=== PATIENT | female | born 1960 | race Caucasian/White ===

== ENCOUNTER 2021-05-13 15:28 | Outpatient (REF) | payer OTHER, SELFPAY ==
[2021-05-13 16:24] LABS: Blood Urea Nitrogen 17 mg/dL (9-16); Estimated Glomerular Filt Rate > 60
== END 2021-05-13 15:29 | disposition home or self-care (01) ==
LOC: HO.LAB 15:28
PROVIDERS: Visit Provider Psychiatry & Neurology Neurology
DX: G35 Multiple sclerosis (principal)
CPT/HCPCS: 36415; 82565; 84520

== ENCOUNTER 2021-05-29 08:01 | Outpatient (REF) | payer OTHER, SELFPAY ==
--- NOTE | ~2021-05-29 | MR_ITS ---
MR CERVICAL SPINE WITHOUT AND WITH CONTRAST CLINICAL INFORMATION: Multiple sclerosis. COMPARISON: Cervical spine MRI 06/25/2017. Brain MRI 05/29/2021. TECHNIQUE: MRI of the cervical spine was obtained using routine sequences with and without contrast. Intravenous contrast: Gadavist 8 mL. FINDINGS: Lesions at the C5 and T2 levels of the spinal cord remain stable. No new cervical cord lesions accounting for artifact. There is no bone marrow edema. There are no acute fractures. Craniocervical junction is unremarkable. Vertebral body heights are maintained. Progressive moderate disc volume loss at C5-C6 and mild disc volume loss at C6-C7. There is no pathologic intrathecal enhancement. At C4-C5, uncovertebral joint spurring and facet arthropathy result in similar moderate right-sided foraminal stenosis and a shallow central disc protrusion results in stable mild narrowing of the central canal. At C5-C6, disc osteophyte mildly narrows the central canal and advanced uncovertebral joint spurring and facet arthropathy result in stable severe right-sided foraminal stenosis. At C6-C7: A small annular disc bulge mildly indents the ventral thecal sac and uncovertebral joint spurring results in mild bilateral foraminal encroachment. MR/MR cervical spine wo/w con IMPRESSION: There are a few stable cord lesions within the cervical spine and thoracic spine. No enhancing lesions. Multilevel cervical spondylosis with spondylitic changes resulting in persistent severe right-sided foraminal stenosis at C5-C6.
--- NOTE | ~2021-05-29 | MR_ITS ---
EXAMINATION: MR BRAIN WITHOUT AND WITH CONTRAST CLINICAL INFORMATION: Multiple sclerosis. COMPARISON: Brain MRI 06/25/2017. TECHNIQUE: Multiplanar MR imaging of the brain was performed without and with contrast. A total of 8 mL Gadavist was utilized for this examination. FINDINGS: There are numerous foci of T2 FLAIR signal hyperintensity primarily involving the supratentorial white matter. Overall there has been no substantial change when compared to most recent prior brain MRI from 06/25/2017. Specifically there is no clear evidence of new or worsening white matter disease. Postcontrast images reveal no abnormal intraparenchymal enhancement. No intracranial mass effect or midline shift. No abnormal extra-axial collection. Lateral and third ventricles are normal. No hydrocephalus. Midline structures including the cervicomedullary junction are normal. No acute bone marrow signal changes. There is no acute territorial infarct. No pathological magnetic susceptibility artifact. Intracranial vascular flow voids are maintained. There is no mastoid or middle ear effusion. Mild mucosal thickening within ethmoid air cells. MR/MR head/brain wo/w con IMPRESSION: Stable examination with no clear evidence of new or worsening white matter disease when compared to MR imaging from 06/25/2017. No abnormal enhancement to suggest active inflammation.
== END 2021-05-29 08:02 | disposition home or self-care (01) ==
LOC: HO.MRI 08:01
PROVIDERS: Visit Provider Psychiatry & Neurology Neurology
DX: G35 Multiple sclerosis (principal)
CPT/HCPCS: 70553; 72156; A9585

== ENCOUNTER 2021-06-17 13:09 | Outpatient (REF) | payer OTHER, SELFPAY ==
--- NOTE | ~2021-06-17 | MM_ITS ---
EXAMINATION: MM SCREENING DIGITAL BREAST TOMOSYNTHESIS, BILATERAL CLINICAL INFORMATION: Screening. Asymptomatic. The lifetime risk of breast cancer based on the Tyrer-Cuzick Model is 15%. COMPARISON: Mammography: 08/06/2017, 06/11/2016, 06/08/2015 TECHNIQUE: Digital breast tomosynthesis is performed in both the craniocaudal and mediolateral oblique views along with computer-aided detection (CAD). Synthesized 2D images are generated from the tomosynthesis. FINDINGS: There are scattered areas of fibroglandular density (ACR BI-RADS breast composition Category b). There is mild bilateral chronic nipple retraction. Parenchymal pattern is similar to prior studies. There is stable small nodularity anterior central left breast and retroareolar right breast. There is no developing density or architectural abnormality or abnormal calcifications the axilla are unremarkable. There is no skin thickening. No significant changes. MM/MM tomosynthesis screening BI IMPRESSION: No mammographic evidence of malignancy. ASSESSMENT: BI-RADS 2: Benign RECOMMENDATION: Routine annual mammography screening. This patient's information was entered into a reminder system with a target due date for their next mammogram.
[2021-06-17 13:52] LABS: Hematocrit 43.3 % (37-47); Hemoglobin 13.8 g/dl (12.0-16.0); Mean Corpuscular HGB Conc 31.9 g/dl (31.0-35.0); Mean Corpuscular Hemoglobin 27.9 pg (27.0-33.0); Mean Corpuscular Volume 87.5 fL (80-98); Mean Platelet Volume 9.8 fL (9.4-12.3); Platelet Count 253 X10*3/uL (160-400); Red Blood Count 4.95 X10*6/uL (4.20-5.50); Red Cell Distribution Width 15.2 % (11.0-16.0); White Blood Count 8.8 X10*3/uL (4.8-10.8)
[2021-06-17 14:04] LABS: Alanine Aminotransferase 23 U/L (0-31); Albumin Level 4.6 g/dL (3.5-5.0); Alkaline Phosphatase 91 U/L (39-117); Anion Gap 16 (12-20); Aspartate Amino Transferase 22 U/L (5-31); Bilirubin Direct 0.2 mg/dL (0.0-0.5); Bilirubin Total 0.6 mg/dL (0.0-1.0); Blood Urea Nitrogen 14 mg/dL (9-16); Calcium 9.8 mg/dL (8.4-10.2); Carbon Dioxide 23 mmol/L (22-29); Chloride 106 mmol/L (96-108); Cholesterol 230 mg/dL; Estimated Glomerular Filt Rate > 60; Glucose Random 130 mg/dL (60-115); HDL Cholesterol 41 mg/dL; LDL Cholesterol Calculated 143 mg/dl; Potassium 3.8 mmol/L (3.3-5.1); Sodium 141 mmol/L (135-145); Total Protein 6.9 g/dL (6.5-8.0); Triglycerides 233 mg/dL
[2021-06-17 14:27] LABS: Thyroid Stimulating Hormone 1.26 uIU/mL (0.32-4.0)
[2021-06-17 17:11] LABS: Glucose Urine UA NEG (NEG); Leukocyte Esterase Urine NEG (NEG); Nitrite Urine NEG (NEG); Specific Gravity - Urine >= 1.030 (1.005-1.025); Urine Blood NEG (NEG); Urine Ketones 15 MG/DL (NEG); Urine Protein TRACE MG/DL (NEG-TRACE)
[2021-06-17 17:28] LABS: Appearance Urine CLEAR; Color Urine YELLOW
== END 2021-06-17 13:10 | disposition home or self-care (01) ==
LOC: HO.MAMMO 13:09
PROVIDERS: PCP Internal Medicine; Visit Provider Internal Medicine
DX: Z12.31 Encounter for screening mammogram for malignant neoplasm of breast (principal); E78.00 Pure hypercholesterolemia, unspecified
CPT/HCPCS: 36415; 77063; 77067; 80048; 80061; 80076; 81003; 84443; 85027

== ENCOUNTER → 2021-07-12 08:45 | Outpatient (BNVA) | payer OTHER, SELFPAY | PROVIDERS: PCP Internal Medicine; Referring Provider Internal Medicine; Visit Provider Surgery | DX: Z80.3 Family history of malignant neoplasm of breast (principal) | CPT/HCPCS: 99212 ==

== ENCOUNTER 2021-09-09 11:44 | Outpatient (REF) | payer OTHER, SELFPAY ==
[2021-09-09 12:40] LABS: Estimated Average Glucose 108 mg/dL; Hemoglobin A1c % 5.4 %
== END 2021-09-09 11:45 | disposition home or self-care (01) ==
LOC: HO.LAB 11:44
PROVIDERS: PCP Internal Medicine; Visit Provider Internal Medicine
DX: R73.9 Hyperglycemia, unspecified (principal)
CPT/HCPCS: 36415; 83036

== ENCOUNTER 2021-09-10 11:22 | Outpatient (REF) | payer OTHER, SELFPAY ==
--- NOTE | ~2021-09-10 | XR_ITS ---
EXAMINATION: XR ANKLE, RIGHT CLINICAL INFORMATION: Right ankle pain COMPARISON: None TECHNIQUE: AP, lateral, and mortise views of the right ankle. FINDINGS: The bones and soft tissues are normal. No fracture. Alignment is anatomic. Joint spaces are maintained. No joint effusion. XR/XR ankle RT min 3V IMPRESSION: Normal right ankle. Note that the base of the 5th metatarsal is not included on the lateral view, obscured by the bones of the midfoot, and therefore a subtle or nondisplaced fracture could be obscured. Correlate clinically.
== END 2021-09-10 11:23 | disposition home or self-care (01) ==
LOC: HO.LAB 11:22
PROVIDERS: PCP Internal Medicine; Visit Provider Nurse Practitioner Family
DX: M25.571 Pain in right ankle and joints of right foot (principal)
CPT/HCPCS: 73610

== ENCOUNTER 2022-06-26 07:19 | Outpatient (REF) | payer OTHER, SELFPAY ==
--- NOTE | ~2022-06-26 | MM_ITS ---
EXAMINATION: MM SCREENING DIGITAL BREAST TOMOSYNTHESIS, BILATERAL CLINICAL INFORMATION: Screening. Asymptomatic. Family history premenopausal breast cancer, sister. The lifetime risk of breast cancer based on the Tyrer-Cuzick Model is 15%. COMPARISON: Mammography: 06/17/2021, 08/06/2017, 06/11/2016 TECHNIQUE: Digital breast tomosynthesis is performed in both the craniocaudal and mediolateral oblique views along with computer-aided detection (CAD). Synthesized 2D images are generated from the tomosynthesis. Additional right MLO view is provided. FINDINGS: There are scattered areas of fibroglandular density (ACR BI-RADS breast composition Category b). There are no significant masses, abnormal calcifications, or other abnormalities. Parenchymal pattern is similar to prior studies. There is mild bilateral chronic nipple retraction as previously noted. No significant changes. MM/MM tomosynthesis screening BI IMPRESSION: No significant changes from prior exams. ASSESSMENT: BI-RADS 2: Benign RECOMMENDATION: Routine annual mammography screening. This patient's information was entered into a reminder system with a target due date for their next mammogram.
== END 2022-06-26 07:20 | disposition home or self-care (01) ==
LOC: HO.MAMMO 07:19
PROVIDERS: PCP Internal Medicine; Visit Provider Internal Medicine
DX: Z12.31 Encounter for screening mammogram for malignant neoplasm of breast (principal)
CPT/HCPCS: 77063; 77067

== ENCOUNTER 2022-09-23 13:59 | Outpatient (REF) | payer OTHER, SELFPAY ==
--- NOTE | ~2022-09-23 | MR_ITS ---
EXAMINATION: MRI BRAIN WITHOUT AND WITH CONTRAST MRI CERVICAL SPINE WITHOUT AND WITH CONTRAST MRI THORACIC SPINE WITHOUT AND WITH CONTRAST CLINICAL INFORMATION: Multiple sclerosis. COMPARISON: MRI brain and cervical spine 05/29/2021. MRI brain, cervical, and thoracic spine 06/25/2017. TECHNIQUE: Multiplanar MR imaging of the brain, cervical spine, and thoracic spine was performed without and with contrast. A total of 8 mL Gadavist was utilized for this examination. FINDINGS: Brain: There are multiple foci of T2 FLAIR signal hyperintensity primarily involving the supratentorial white matter that have remained stable when compared to the most recent prior examination from 05/29/2021. No evidence of new or worsening white matter disease. There is no abnormal intraparenchymal enhancement demonstrated on postcontrast images. No intracranial mass effect or midline shift. No abnormal extra-axial collection. Lateral and third ventricles are normal. No hydrocephalus. Midline structures including the cervicomedullary junction are normal. No acute bone marrow signal changes. There is no acute territorial infarct. No pathological magnetic susceptibility artifact. Intracranial vascular flow voids are grossly maintained. Cervical spine: Again there is a short eccentric segment of increased intramedullary T2 signal intensity involving the right lateral cord at the level of C5. No new intramedullary signal abnormality and there is no abnormal intramedullary enhancement demonstrated on postcontrast images. Alignment is normal. Vertebral heights are preserved. No acute bone marrow signal changes. Slight loss of intervertebral disc height and T2 signal intensity at multiple levels related to disc degeneration. Uncovertebral joint spurring and conjunction with facet degenerative change at C5-C6 causes moderate to severe right neuroforaminal encroachment. There is mild neuroforaminal narrowing at multiple additional levels, not substantial change when compared to prior imaging. Visualized soft tissues of the neck are normal. Vascular flow voids are maintained. Thoracic spine: There are a few short segment eccentric intramedullary lesions involving the thoracic spinal cord including a stable left dorsal cord lesion at T2, a left dorsal cord lesion at T5 that was not visible on prior imaging, a short intramedullary lesion involving the right lateral cord at the level of T8 that was faintly visible, and a possible new lesion involving the right dorsal cord at T10. There is no pathological intramedullary enhancement demonstrated on postcontrast images to suggest active demyelination at the time of imaging. Alignment is normal. Vertebral heights are preserved. There is a well marginated intraosseous hemangioma involving the T7 vertebral body. There is slight loss of intervertebral disc height and T2 signal intensity at multiple levels related to disc degeneration. There is no canal or neuroforaminal compromise. No cord compression. Limited visualization of intrathoracic anatomy reveals no abnormal finding. Specifically no paraspinal soft tissue mass or collection. MR/MR thoracic spine wo/w con IMPRESSION: Brain: Stable chronic supratentorial white matter disease. No new or worsening white matter disease to suggest disease progression. No abnormal intraparenchymal enhancement to suggest active demyelination. Cervical spine: Stable chronic intramedullary lesion involving the right lateral cord at the level of C5. No new intramedullary lesion and no abnormal intramedullary enhancement to suggest active demyelination. There is multilevel degenerative spondylosis of the cervical spine. Asymmetric uncovertebral joint spurring causes moderate to severe right neuroforaminal encroachment at C5-C6. Mild neuroforaminal narrowing is visualized at multiple additional levels. Thoracic Spine: There are a few short segment eccentric intramedullary lesions at the levels of T2, T5, T8, and T10. Lesions at T2 and T8 are stable. There is however no pathological intramedullary enhancement on postcontrast images to suggest active demyelination. Otherwise unremarkable examination in that there is no canal or neuroforaminal compromise. No cord compression.
== END 2022-09-23 14:00 | disposition home or self-care (01) ==
LOC: HO.MRI 13:59
PROVIDERS: Visit Provider Psychiatry & Neurology Neurology
DX: G35 Multiple sclerosis (principal)
CPT/HCPCS: 70553; 72156; 72157; A9585

== ENCOUNTER 2023-07-10 08:37 | Outpatient (REF) | payer OTHER, SELFPAY ==
--- NOTE | ~2023-07-10 | XR_ITS ---
EXAMINATION: XR FOOT, RIGHT CLINICAL INFORMATION: Right foot sprain COMPARISON: None available. TECHNIQUE: AP, lateral, and oblique views of the right foot. FINDINGS: No acute fracture or malalignment. Small heel spur. Subtle flattening and sclerosis of the 3rd metatarsal head may represent an old injury or Freiberg's infraction. No significant joint space narrowing. XR/XR foot RT min 3V IMPRESSION: No acute fracture or malalignment. Small heel spur. Subtle flattening and sclerosis of the 3rd metatarsal head may represent an old injury or Freiberg's infraction.
== END 2023-07-10 08:38 | disposition home or self-care (01) ==
LOC: HO.LAB 08:37
PROVIDERS: Visit Provider Nurse Practitioner Primary Care
DX: S93.691A Other sprain of right foot, initial encounter (principal); B02.9 Zoster without complications; R12 Heartburn; G35 Multiple sclerosis
CPT/HCPCS: 73630

== ENCOUNTER 2023-09-16 21:51 | Emergency (ER) | payer OTHER, SELFPAY ==
--- NOTE | ~2023-09-16 | XR_ITS ---
EXAMINATION: XR FACIAL BONES CLINICAL INFORMATION: Pain after fall COMPARISON: None available. TECHNIQUE: 4 views of the facial bones were obtained. FINDINGS: No displaced fracture identified. Frontal sinuses are suspected to be nonpneumatized. Remaining paranasal sinuses and mastoid air cells appear aerated. XR/XR facial bones <3V IMPRESSION: No displaced fracture identified.
--- NOTE | ~2023-09-16 | XR_ITS ---
EXAMINATION: XR WRIST, RIGHT XR HAND, RIGHT CLINICAL INFORMATION: Fall with pain COMPARISON: None available. TECHNIQUE: PA, lateral, and oblique views of the right wrist and right hand FINDINGS: Articular alignment throughout the wrist and hand appears anatomic. There are small curvilinear calcifications adjacent to the base of the third proximal phalanx, along the radial aspect, which are more suggestive of a chronic finding. No additional focal osseous abnormality is seen. No significant focal soft tissue abnormality identified. XR/XR hand wrist RT IMPRESSION: Small curvilinear calcifications adjacent to the base of the third proximal phalanx, more suggestive of a chronic finding. Otherwise no acute findings identified.
--- NOTE | ~2023-09-16 | XR_ITS ---
EXAMINATION: XR HUMERUS, RIGHT CLINICAL INFORMATION: Pain after fall COMPARISON: None available. TECHNIQUE: AP and lateral views of the right humerus. FINDINGS: Alignment at the shoulder and elbow appears anatomic on these views. No acute fracture is seen. Mild soft tissue swelling suspected near the distal humerus. XR/XR humerus RT IMPRESSION: No fracture identified. Mild soft tissue swelling near the distal humerus.
[2023-09-16 22:15] VITALS: BP 201/78; PULSE 93; RESP 18; TEMP 36.3; O2SAT 98
[2023-09-17 02:00] VITALS: BP 181/71; PULSE 95; RESP 18; TEMP 36.6; O2SAT 96
--- NOTE | 2023-09-17 02:11 | ED_ITS ---
HPI - Fall General Chief Complaint: Fall Stated Complaint: Fall Time Seen by Provider: 09/17/23 02:07 Source: patient Mode of arrival: ambulatory Limitations: no limitations History of Present Illness HPI Narrative: Patient comes to the emergency room complaining of a fall after tripping over her dog. Patient states she is not on blood thinners. Patient states she bumped her forehead but did not lose consciousness, patient has a small abrasion on the forehead. Patient states that she has no headache, no neck pain, but muscle the pain is on the right wrist and upper arm. Related Data Home Medications Medication Instructions Recorded Confirmed omeprazole 20 mg capsule,delayed 20 mg PO DAILY 08/15/20 08/05/22 release Previous Rx's Medication Instructions Recorded lisinopril 5 mg tablet 5 mg PO DAILY #90 tabs 12/26/21 atorvastatin 80 mg tablet (Lipitor) 80 mg PO BEDTIME #90 tabs 03/13/22 Allergies Allergy/AdvReac Type Severity Reaction Status Date / Time corticotropin Allergy Severe SWELLING Verified 09/16/23 22:14 [From [facility] levofloxacin [From LEVAQUIN] Allergy Severe ANGIOEDEMA Verified 09/16/23 22:14 teriflunomide [From AUBAGIO] Allergy Severe SOB/HTN Verified 09/16/23 22:14 albumin human Allergy Intermediate ARM Verified 09/16/23 22:14 [From REBIF (WITH ALBUMIN)] INFECTION interferon beta-1a Allergy Intermediate ARM Verified 09/16/23 22:14 [From REBIF (WITH ALBUMIN)] INFECTION sulfamethoxazole Allergy Mild RASH Verified 09/16/23 22:14 [From BACTRIM] trimethoprim [From BACTRIM] Allergy Mild RASH Verified 09/16/23 22:14 fingolimod [From GILENYA] Allergy Unknown UNKNOWN Verified 09/16/23 22:14 REACTION glatiramer (copolymer 1) Allergy Unknown damage skin Verified 09/16/23 22:14 [Copaxone] 1st Choice Lancets Super Thin Allergy Unknown Unknown Uncoded 08/05/22 09:26 adhesives Allergy Unknown rash Uncoded 08/05/22 09:26 Review of Systems Review of Systems: Constitutional : No Weight loss, No Fever, No Chills, No Night Sweats, No Fatigue, No Malaise ENT/Mouth : No Hearing loss, No Ear Pain, No Nasal Congestion, No Sinus Pain, No Hoarseness, No sore throat, No Rhinorrhea, No Swallowing Difficulty Eyes: No Eye Pain, No Swelling, No Redness, No Foreign Body, No Discharge, No Vision Changes Cardiovascular : No Chest Pain, No SOB, No Dyspnea on Exertion, No Orthopnea, No Edema, No Palpitations Respiratory : No Cough, No Sputum, No Wheezing, No Smoke Exposure, No Dyspnea Gastrointestinal : No Nausea, No Vomiting, No Diarrhea, No Constipation, No abdominal Pain, No Hematochezia, No Melena Genitourinary : no irregular bleeding, No Dysuria, No Urinary Frequency, No Hematuria, No Urinary Incontinence, No Urgency, No Flank Pain, No Urinary Flow Changes, No Hesitancy Musculoskeletal : Complaining of right wrist pain, No Myalgias, No Joint Swelling Skin : Complaining of abrasion to the forehead, nose and right upper arm Neuro : No Weakness, No Numbness, No Paresthesias, No Loss of Consciousness, No Dizziness, No Headache Psych : No Anxiety/Panic, No Depression, No SI/HI/AH/VH, No Social Issues, Heme/Lymph: No Bruising, No Bleeding,No Lymphadenopathy Endocrine : No Polyuria, No Polydipsia, No Temperature Intolerance PMFSH Past Medical History Medical History Essential hypertension Hordeolum externum left lower eyelid Tobacco use disorder Multiple sclerosis Hypercholesterolemia Conjunctivitis Blepharitis of eyelid of right eye Surgical History History of breast biopsy History of ear surgery History of tonsillectomy Family History Family History Mother No problems noted. Father No problems noted. Sister Breast cancer, Onset Age: 30 Maternal Aunt Breast cancer Social History Social History Housing: House Alcohol intake: never Patient Tobacco Use Status: Current everyday Tobacco user Tobacco use type: Cigarette Cigarette Packs Per Day: 1 Cigarettes Per Day: 20 e-Cigarette/Vaping Use: Never Used Second Hand Smoke Exposure: Yes Advance Directives: No Advance Directives Information Provided: No service: No Current occupational status: disabled Cognitive needs: Yes (cane) Hearing needs: No Vision needs: Yes (Glasses) Physical Exam Vital Signs: Vital Signs: Last Vital Signs Temp 97.8 F 09/17/23 02:00 Pulse 95 09/17/23 02:00 Resp 18 09/17/23 02:00 BP 181/71 H 09/17/23 02:00 Pulse Ox 96 09/17/23 02:00 O2 Del Method Room Air 09/17/23 02:00 BMI result Body Mass Index 30.0 Const: Other: Appearance: Alert. Oriented X3. No acute distress. Well appearing Eyes: Pupils equal, round and reactive to light. ENT: Pharynx normal. Neck: Normal inspection. Neck supple. No lymph nodes noted. No crepitus CVS: Normal heart rate and rhythm. Pulses normal. Normal S1 and S2 Respiratory: No respiratory distress. Breath sounds normal. No Wheezing. No rales Abdomen: Soft and nontender. No rigidity. No distention. Skin: Skin warm and dry. Normal skin color. Normal skin turgor. Small abrasion to the forehead and a very small skin tear to the right arm above the elbow Extremities: No lower extremity edema. No Lacerations. No Rash Neuro: Oriented X 3. No motor deficit. No sensory deficit. Moving all extremities. No slurred speech. CN 2 through 12 grossly intact Psych: calm, cooperative, normal affect Medical Decision Making Medical Decision Making MDM Narrative: -my interpretation of x-rays of the hand/wrist/tumors, no fracture, normal a lignment -I discussed the x-ray findings with the patient, no fracture. -patient states that she feels well, patient states that she does not want us to clean her abrasion, patient feels well and would like to be discharged home Differential Diagnosis Differential Diagnoses: The differential diagnosis associated with the presentation includes (Right arm contusion, abrasion, fracture of their radius/ulna/humerus) Independent Interpretation I performed an independent interpretation of an: Plain X-Ray Radiology Impression Discussion of test interpretation with radiology: I have reviewed the radiologist's reading. Radiologist Impression: Hand/wrist x-ray: Small curvilinear calcifications adjacent to the base of the third proximal phalanx, more suggestive of a chronic finding. Otherwise no acute findings identified. Humerus fracture: No fracture identified. Mild soft tissue swelling near the distal humerus. Face x-ray: FINDINGS: No displaced fracture identified. Frontal sinuses are suspected to be nonpneumatized. Remaining paranasal sinuses and mastoid air cells appear aerated. Discharge Plan Discharge Clinical Impression: Multiple contusions Patient Disposition: Home, Self-Care Instructions: Contusion in Adults (ED) Additional Instructions: Please follow-up with your primary care physician tomorrow. If you have any worsening or new symptoms, please return to the emergency room or call 911 Prescriptions: No Action atorvastatin [Lipitor] 80 mg tablet 80 mg PO BEDTIME Qty: 90 1RF omeprazole 20 mg capsule,delayed release(DR/EC) 20 mg PO DAILY lisinopril 5 mg tablet 5 mg PO DAILY Qty: 90 1RF
== END 2023-09-17 02:30 | disposition home or self-care (01) ==
PROVIDERS: Emergency Provider Emergency Medicine; PCP Internal Medicine
DX: S00.83XA Contusion of other part of head, initial encounter (principal); S60.211A Contusion of right wrist, initial encounter; R51.9 Headache, unspecified; M25.531 Pain in right wrist; F17.210 Nicotine dependence, cigarettes, uncomplicated; W01.10XA Fall on same level from slipping, tripping and stumbling with subsequent striking against unspecified object, initial encounter; Y93.9 Activity, unspecified; Y92.9 Unspecified place or not applicable; Y99.9 Unspecified external cause status; Z71.6 Tobacco abuse counseling; Z79.899 Other long term (current) drug therapy
CPT/HCPCS: 70140; 73060; 73110; 73130; 99283

== ENCOUNTER 2024-06-30 13:44 | Outpatient (REF) | payer OTHER, SELFPAY ==
--- NOTE | ~2024-06-30 | MM_ITS ---
EXAMINATION: MM SCREENING DIGITAL BREAST TOMOSYNTHESIS, BILATERAL CLINICAL INFORMATION: Screening. Asymptomatic. COMPARISON: Mammography: Comparison is made with available priors TECHNIQUE: Digital breast mammography with tomosynthesis is performed in both the craniocaudal and mediolateral oblique views along with computer-aided detection (CAD). FINDINGS: There are scattered areas of fibroglandular density (ACR BI-RADS breast composition Category b). There are no significant masses, abnormal calcifications, or other abnormalities. MM/MM tomosynthesis screening BI IMPRESSION: No mammographic evidence of malignancy. ASSESSMENT: BI-RADS BI-RADS 1 - Negative RECOMMENDATION: Routine annual mammography screening. 1 year F/U This examination should not preclude the clinical evaluation of a suspicious palpable abnormality. This patient's information was entered into a reminder system with a target due date for their next mammogram. Electronically signed by: Roula Thibodeaux DO 07/14/2024 08:07 PM EDT
== END 2024-06-30 13:45 | disposition home or self-care (01) ==
LOC: HO.MAMMO 13:44
PROVIDERS: PCP Internal Medicine; Visit Provider Internal Medicine
DX: Z12.31 Encounter for screening mammogram for malignant neoplasm of breast (principal)
CPT/HCPCS: 77063; 77067

== ENCOUNTER → 2024-06-30 14:00 | Outpatient (BNV) | payer OTHER, SELFPAY | PROVIDERS: PCP Internal Medicine; Visit Provider Internal Medicine | DX: Z12.31 Encounter for screening mammogram for malignant neoplasm of breast (principal) | CPT/HCPCS: 77063; 77067 ==

== ENCOUNTER 2025-02-15 13:52 | Outpatient (AMB) | payer MEDICARE, MEDICAID, SELFPAY ==
[2025-02-15 14:01] VITALS: BP 120/62; PULSE 104; BMI 27.1
--- NOTE | 2025-02-15 14:01 | MHC.OFFVIS ---
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/unstable angina/calcific on CT Allergies corticotropin [From ACTHAR H.P.] Allergy (Severe, Verified 09/16/23 22:14) SWELLING levofloxacin [From LEVAQUIN] Allergy (Severe, Verified 09/16/23 22:14) ANGIOEDEMA teriflunomide [From AUBAGIO] Allergy (Severe, Verified 09/16/23 22:14) SOB/HTN albumin human [From REBIF (WITH ALBUMIN)] Allergy (Intermediate, Verified 09/16/23 22:14) ARM INFECTION interferon beta-1a [From REBIF (WITH ALBUMIN)] Allergy (Intermediate, Verified 09/16/23 22:14) ARM INFECTION sulfamethoxazole [From BACTRIM] Allergy (Mild, Verified 09/16/23 22:14) RASH trimethoprim [From BACTRIM] Allergy (Mild, Verified 09/16/23 22:14) RASH fingolimod [From GILENYA] Allergy (Unknown, Verified 09/16/23 22:14) UNKNOWN REACTION glatiramer (copolymer 1) [Copaxone] Allergy (Unknown, Verified 09/16/23 22:14) damage skin 1st Choice Lancets Super Thin Allergy (Unknown, Uncoded 08/05/22 09:26) Unknown adhesives Allergy (Unknown, Uncoded 08/05/22 09:26) rash Medication List - Last Reconciled 02/15/25 by Sarthak Valles MD atorvastatin (Lipitor) 20 mg PO BEDTIME dimethyl fumarate (Tecfidera) 240 mg PO BID lisinopril 15 mg PO DAILY omeprazole 40 mg PO DAILY HPI Comments Details: Selam is here for consultation regarding coronary artery disease. I have last seen her about 7 years ago in 2018. Those notes were reviewed. Essentially, she has a history of labile hypertension, multiple sclerosis and coronary artery disease. Strong family history of cardiac issues. She underwent a coronary CTA around the time which showed nonobstructive CAD. She also had nonrheumatic aortic regurgitation. She now returns for reassessment. It seems that she underwent CTA abdomen and in that study, reported have severe coronary artery calcification. She reports acid reflux type symptoms which are nonexertional and mostly related to food. In addition to this she however also has a different chest pain which is again nonexertional but she thinks that is different from the reflux. Difficult to say what it is. Less likely anginal as she states it does not happen with exertion. She still gets labile readings in her blood pressure. Exercise The patient reports difficulty in performing exercise due to unstable walking attributed to multiple sclerosis. She expresses concerns about undergoing treadmill-based stress tests due to these stability issues. [facility] Medical History (Updated 02/15/25 @ 14:18 by Sarthak Valles MD) Atherosclerotic cardiovascular disease Essential hypertension Hordeolum externum left lower eyelid Tobacco use disorder Multiple sclerosis Hypercholesterolemia Conjunctivitis Blepharitis of eyelid of right eye Surgical History History of breast biopsy History of ear surgery History of tonsillectomy Family History Mother No problems noted. Father No problems noted. Sister Breast cancer, Onset Age: 30 Maternal Aunt Breast cancer Social History Housing: House Alcohol intake: never Patient Tobacco Use Status: Current everyday Tobacco user Tobacco use type: Cigarette Cigarette Packs Per Day: 1 Cigarettes Per Day: 20 e-Cigarette/Vaping Use: Never Used Second Hand Smoke Exposure: Yes service: No Current occupational status: disabled Cognitive needs: Yes (cane) Hearing needs: No Vision needs: Yes (Glasses) Review of Systems Const Denies weakness ENT Denies dizziness Card Reports chest pain, Reports chest pain at rest, Denies chest pain with activity, Denies syncope, Denies rapid heart rate, Denies pedal edema, Denies edema, Denies leg edema, Denies lightheadedness, Denies palpitations, Denies dyspnea, Denies dyspnea on exertion and Denies orthopnea Resp Denies cough, Denies dyspnea and Denies dyspnea on exertion GI Denies hematochezia and Denies change in stool character Musc Denies abnormal gait, Denies muscle cramps, Denies muscle weakness, Denies numbness, Denies radiating pain into limb and Denies tingling Neuro Denies abnormal gait, Denies dizziness, Denies syncope, Denies numbness, Denies tingling and Denies weakness Endo Denies palpitations Physical Exam Vital Signs: Last Vital Signs Pulse 104 H 02/15/25 14:01 BP 120/62 02/15/25 14:01 BMI result Body Mass Index 27.1 Const General: comfortable and no acute distress Orientation/consciousness: patient oriented x3 HEENT Other: Unremarkable Head: Yes normal to inspection Neck Neck: Yes normal visual inspection Chest Chest palpation & inspection: normal inspection of the chest Resp Auscultation: clear to auscultation bilaterally Cardio Palpation: normal PMI Heart sounds: S1 normal heart sound present, S2 normal heart sound present, no gallops, no murmurs and no rubs GI Palpation (GI): Soft to palpation Back/Spine/Pelvis Other: unremarkable Skin General skin exam: no rashes or lesions noted Neuro General: patient oriented x3 Extrem General: Yes normal to inspection Psych Mental Status: mental status grossly normal Office Procedures EKG Details: EKG with sinus tachycardia at 104/Min; nonspecific ST-T changes; [place] [address]-Ekjmgnzwfywlpzogt, Complete Assessment & Plan Assessment & Plan (1) Atherosclerotic cardiovascular disease: Code(s): I25.10 - Atherosclerotic heart disease of [place] coronary artery without angina pectoris Category: Medical Plan Pertinent data reviewed. Coronary CTA 1797-slmm-ky-moderate plaque in the proximal to distal LAD. Degree of stenosis difficult to assess due to motion artifact. Kckl-tr-ogcrlaot plaque throughout the RCA. Mild plaque in the circumflex. Cardiac catheterization 2018-moderate nonobstructive disease in the RCA. Minimal disease in the left coronary system. Echocardiogram 1939-YAH-EEGE of 55-65%; bspt-aw-[id number] aortic regurgitation. Very mild aortic stenosis. Overall, background of multiple sclerosis, ambulating with a cane, labile hypertension, aortic regurgitation, known coronary disease, heartburn type symptoms and also with additional atypical chest pain. We will proceed with further workup for progressive coronary disease. Obtain pharmacological stress test with Lexiscan. Highly unlikely to exercise as she is walking with a cane. We will get an echocardiogram for LV function/aortic regurgitation. We will closely follow her up once the testing is completed. Discussion Notes During the visit, we reviewed the patient's symptoms, diagnostic imaging, and associated cardiovascular risks. I discussed the proposed chemical stress test, emphasizing it avoids physical strain and allows safe evaluation of her cardiac function. We reviewed alternative options such as treadmill testing, which may be unsafe due to unstable gait from multiple sclerosis. I obtained verbal consent for this diagnostic approach, discussing risks of each procedure. We also explored blood pressure management, with plan to adjust on current medication to prevent hypotensive episodes. Follow-up plans for monitoring progression of coronary artery disease were also discussed. Patient was informed and verbally consented to the use of an ambient scribe for clinic note documentation during this visit. Orders: Orders CA echo transthoracic complete Today Sarthak Valles MD I25.10 - Atherosclerotic heart disease of [place] coronary artery without angina pectoris Basic Metabolic Panel Today Sarthak Valles MD I25.10 - Atherosclerotic heart disease of [place] coronary artery without angina pectoris CA lexiscan stress w susan Today Sarthak Valles MD I20.9 - Angina pectoris, unspecified, I25.10 - Atherosclerotic heart disease of [place] coronary artery without angina pectoris NM cardiolite stress test Today Sarthak Valles MD I25.10 - Atherosclerotic heart disease of [place] coronary artery without angina pectoris, R07.2 - Precordial pain Medications: Changed From lisinopril 5 mg PO DAILY 90 tabs 1RF To lisinopril 15 mg PO DAILY Arslan Arizmendi MD From atorvastatin (Lipitor) 80 mg PO BEDTIME 90 tabs 1RF To atorvastatin (Lipitor) 20 mg PO BEDTIME Arslan Arizmendi MD Patient Instructions: - Engage in light, supervised physical activity as tolerated. - Follow up with cardiac tests as scheduled. - Report any chest pain, lightheadedness, or unusual symptoms immediately. Coding Level of Care Code New Pt Level 4 (64731) Complex EM visit Add On G2211 Diagnoses Atherosclerotic cardiovascular disease I25.10 CPT Codes EKG - CPT: 40692-Rubwvgqrcsjabztlx, Complete ([id number])
--- OUTSIDE RECORDS SUMMARY | 2025-02-15 15:08 | XMS_ITS | Clinical Summary ---
Author Organization [facility] ity Address [address] [place] [address] Care Team Providers Care Human Service Coordinator Name Role Phone Unavailable Primary Care Provider Unavailabl e Social History Tobacco Use Types Packs/Day Years Used Date Smoking Tobacco: Never Assessed Comments Unknown Sex and Gender Information Value Date Recorded Sex Assigned at Not on file Legal Sex Female 7:37 PM EST Gender Identity Not on file Sexual Orientation Not on file Plan of Treatment Health Maintenance Due Date Last Done Comments Breast Cancer Screening 1960 DTaP,Tdap,and Td Vaccines (1 - Tdap) 1979 Cervical Cancer Screening: P ap Smear 1981 Pneumococcal Vaccine: 50+ Ye ars (1 of 1 - PCV) 2010 Zoster Vaccines (1 of 2) 2010 COVID-19 Vaccine ( - 2023-2 5 season) 2024 Influenza Vaccine (Season Ended) 2025 RSV Immunization Adult Patie nts (1 - 1-dose 75+ series) 2035 HIB Vaccines Aged Out No longer eligi ble based on patient's age to complete this topic HPV Vaccines Aged Out No longer eligi ble based on patient's age to complete this topic Hepatitis A Vaccines Aged Out No long er eligible based on patient's age to complete this topic Hepatitis B Vaccines Aged Out No long er eligible based on patient's age to complete this topic IPV Vaccines Aged Out No longer eligi ble based on patient's age to complete this topic MMR Vaccines Aged Out No longer eligi ble based on patient's age to complete this topic Meningococcal ACWY Vaccine Aged Out N o longer eligible based on patient's age to complete this topic Meningococcal B Vaccine Aged Out No l onger eligible based on patient's age to complete this topic Pneumococcal Vaccine: Pediat rics (0 to 5 Years) and At-Risk Patients (6 to 64 Years) Aged Out No longer eligible b ased on patient's age to complete this topic RSV Immunization Patients Un bipin 20 months Aged Out No longer eligible b ased on patient's age to complete this topic Varicella Vaccines Aged Out No longer eligible based on patient's age to complete this topic
--- OUTSIDE RECORDS SUMMARY | 2025-02-15 15:08 | XMS_ITS | Patient Health Record ---
Author Organization [facility] Address [address] [place] [address] Care Team Providers Care Transit Operator Name Role Phone Xander Chappell MD Primary Care Provider Porter Harrington Unavailable [phone] Allergies Allergen (clinical drug ingredient) Drug/Non Drug Allergy documented on EMR Reaction Allergy Type Onset Date Status Acthar HP Unknown Drug Allergy Active glatiramer Copaxone skin damage Drug Allergy Acti ve Levaquin face swells Drug Allergy Activ e sulfa rash Drug Allergy Active teriflunomide Aubagio Unknown Drug Allergy Act wicho Reason For Referral No Information Medications Medication SIG (Take, Route, Frequency, Duration) Notes Start Date End Date Status HYDROcodone-Acetaminophen 5- 300 MG TAKE 1 TABLET BY MOUTH TWICE A DAY NEEDED FOR 10 DAYS Oral for 10 Active hydroCHLOROthiazide 12.5 MG 1 capsule Or ally Once a day Active Valium 5 MG 1 tablet as needed Orally Twice a day Active Omeprazole 20 MG 1 capsule Orally Onc e a day Active Gilenya 0.5 MG 1 capsule Orally Onc e a day Active Work Note . . .pt. has stress fracture left foot and is disabled from work until return with cast boot on 09/05/14 . for . 08/30/2014 Active Jelene 0.5 Active Problems Problem Type SNOMED Code ICD Code Onset Dates Problem Status W/U Status Risk Notes Problem Pain in limb (27978191) Pain in Limb (729.5) Active confirmed Problem Stress fracture (44773125) Stress fx (733.94) Active confirmed Plan Of Treatment Pending Test Test Name Order Date [id number]-Hoeo Destruction, -01/01/201254116-Iyew Destruction, 11-0111/20/201174543-Hsqy Destruction, 11-0103/06/2014 [id number]-Wycb Destruction, 11-0104/05/2014 Medical (General) History Medical History History ICD Code raynauds syndrome macular degeneration meningioma cancer multiple sclerosis Osteopenia Surgical History Surgery Date(Month/Year) breast surgery ear surgery tonsillectomy
== END 2025-02-15 14:32 | disposition home or self-care (01) ==
PROVIDERS: PCP Internal Medicine; Visit Provider Internal Medicine
DX: I25.10 Atherosclerotic heart disease of native coronary artery without angina pectoris (principal)
CPT/HCPCS: 93010; 99204; G2211

== ENCOUNTER → 2025-02-15 13:52 | Outpatient (BNVA) | payer MEDICARE, SELFPAY | PROVIDERS: PCP Internal Medicine; Visit Provider Internal Medicine | DX: I25.119 Atherosclerotic heart disease of native coronary artery with unspecified angina pectoris (principal) | CPT/HCPCS: 93005; 99202 ==

== ENCOUNTER → 2025-03-24 09:37 | Outpatient (REF) | payer MEDICARE, SELFPAY ==
--- NOTE | 2025-03-24 09:39 | CA_ITS ---
Transthoracic Echocardiogram Patient (Last, First, Middle): Selam Kern A Gender: Female Date of : 1960 Age: 64 Procedure Date: 03/24/2025 Procedure Type: Transthoracic Echocardiogram Location: OP Height: 165.1 cm Weight: 79.38 kg BSA: 1.87 m2 Heart Rate: bpm BP: 124 / 80 mmHg Freight Elevator Operator: Referring MD: Sarthak Valles MD Symptoms: I25.10 - Atherosclerotic heart disease of [place] coronary artery without... Study Quality: Adequate w Contrast ECG Rhythm: Sinus Conclusions: - The left ventricular systolic function is normal. The calculated ejection fraction is 63% by biplane method. - There is mild calcification of the aortic valve. There is mild aortic valve regurgitation. Findings Procedure Information Contrast agent, definity, is being given per protocol without apparent complications. Left Ventricle Normal left ventricular cavity size. There is normal left ventricular wall thickness. The left ventricular systolic function is normal. The calculated ejection fraction is 63% by biplane method. There is no evidence of regional wall motion abnormalities. Diastolic function is normal for age. Right Ventricle Normal right ventricular cavity size and systolic function. Atria Both atria are normal in size. Aortic Valve There is mild calcification of the aortic valve. There is mild aortic valve regurgitation. No significant aortic stenosis. Mitral Valve The mitral valve appears normal. There is no mitral valve regurgitation. There is no mitral valve stenosis. Pulmonic Valve The pulmonic valve is likely normal. Tricuspid Valve There is trace tricuspid valve regurgitation. There is no evidence of pulmonary hypertension. Great Vessels The asc aorta is normal in size. Venous The inferior vena cava is normal in size and collapses greater than 50% with inspiration. Pericardium/Pleural There is no evidence of pericardial effusion. Prior Study Comparison No significant change compared to prior study dated: 11/18/2012. Measurements 2D Linear Measurements IVSd: 0.77 0.6-0.9/0.6-1.0 cm LVIDd: 4.87 3.9-5.3/4.2-5.9 cm LVIDd Index: 2.60 2.4-3.2/2.2-3.1 cm/m2 LVIDs: 2.88 2.0-3.6 cm LVPWd: 0.85 0.7-1.1 cm Ao Root: 2.60 2.1-3.5 cm LA Diam: 3.20 2.7-3.8/3.0-4.0 cm LAIDs Index: 1.71 1.5-2.3 cm/m2 LV Mass: 163.91 67-162/88-224 g LV Mass Index: 87.65 43-95/49-115 g/m2 LVOT Diam: 2.10 3.0+(-)1.3 cm 2D Systolic Function EF 4C: 64.70 >55% EF 2C: 63.40 >55% EF BiP: 62.50 >55% Mitral Valve MV Pk E: 0.47 MV PK A: 0.85 MV Decel Time: 116.00 E/A: 0.60 E'Lateral: 6.09 E'Medial: 5.55 E/E' Med: 8.50 E/E' Lat: 7.70 PHT: 34.00 MVA PHT: 6.47 Decel [place]: 4.07 Aortic Valve AoV Pk Thomas: 2.35 AoV Mn Thomas: 1.51 AoV VTI: 0.55 AoV Pk Grad: 22.00 Aov Mn Grad: 11.00 KENDRICK Cont.VTI: 1.59 LVOT LVOT Pk Thomas: 1.12 LVOT Mn Thomas: 0.69 LVOT VTI: 0.25 LVOT Pk Grad: 5.00 LVOT Mn Grad: 2.00 LVOT Diam: 2.10 LVOT Area: 3.46 Diastolic Function MV Pk E: 0.47 MV Pk A: 0.85 E/A: 0.60 E'Medial: 5.55 E/E' Med: 8.50 E' Laterial: 6.09 E/E' Lat: 7.70 Right Ventricle TAPSE (mm): 24.00 TVS' Thomas: 11.00 Tricuspid Valve TR Pk Thomas: 1.90 TR Pk Grad: 14.00 RA Press: 3.00 RVSP: 17.00 Great Vessels Aorta Ao Root-2D: 2.60 2.0-3.7 cm Ao Asc: 2.70 2.1-3.4 cm Pulmonary Valve PV Pk Thomas: 0.96 Peak PV Grad: 4.00 Updated in Other Vendor System with Status of Final Sarthak Valles MD electronically signed on 03/26/2025 2:26:13 PM with status of Final
--- OUTSIDE RECORDS SUMMARY | 2025-03-24 10:12 | XMS_ITS | Clinical Summary ---
Author Organization [facility] ity Address [address] [place] [address] Care Team Providers Care Supplier Quality Name Role Phone Unavailable Primary Care Provider [...]
== END ==
LOC: HO.CARD 09:37
PROVIDERS: Visit Provider Internal Medicine
DX: I25.10 Atherosclerotic heart disease of native coronary artery without angina pectoris (principal)
CPT/HCPCS: 93306; Q9957

== ENCOUNTER → 2025-03-24 09:39 | Outpatient (BNV) | payer MEDICARE, SELFPAY | PROVIDERS: Visit Provider Internal Medicine | DX: I70.0 Atherosclerosis of aorta (principal); I35.1 Nonrheumatic aortic (valve) insufficiency; I25.10 Atherosclerotic heart disease of native coronary artery without angina pectoris | CPT/HCPCS: 93306 ==

== ENCOUNTER → 2025-04-28 09:52 | Outpatient (REF) | payer MEDICARE, SELFPAY ==
--- NOTE | ~2025-04-28 | NM_ITS ---
Lexiscan Myocardial perfusion study Indication: Chest pain Technique: The patient was brought in for a Lexiscan perfusion study on 04/28/2025 and was injected 0.4 mg of Lexiscan intravenously. Within a minute of this injection 25 mCi of sestamibi was given intravenously. Images were obtained using the SPECT gamma camera interlaced with the gating device. Images were obtained in supine position. Resting perfusion study was performed on 05/02/2025. Patient was administered 25 mCi of sestamibi intravenously at rest. Images were then obtained in supine position. Total DLP 111 mGy-cm. Images were processed with the software and compared side to side in short axis, horizontal long axis and vertical long axis views. Findings: Raw aquisition reviewed. Arms by the patient's side. The stress perfusion study showed no significant perfusion abnormality. Both uncorrected as well as CT attenuation corrected images were reviewed. The gated study shows normal LV systolic function with calculated LVEF of 69%. LV cavity is normal in size. The gated study shows normal wall thickening and contraction of segments. Resting study shows no significant perfusion abnormality. Gating at rest reveals normal wall motion with ejection fraction at 59%. The findings are consistent with no clear reversible or fixed perfusion abnormality. NM/NM cardiolite stress test Impression: 1. Myocardial perfusion imaging study shows normal myocardial perfusion. 2. Gated LVEF is 69% during stress and 59% during rest. 3. Transient ischemic dilatation not present. EKG component of the test reported separately. Electronically signed by: Sarthak Valles MD 05/03/2025 10:59 AM EDT
--- NOTE | 2025-04-28 09:54 | CA_ITS ---
Acquisition Time: 2025-04-28 10:14:03 Total Exercise Time: 00:02:00 Test Indications: precordial pain Medications: see med sheet Protocol: LEXISCAN Max HR: 126 BPM 80% of Pred: 156 BPM Max BP: 152/84 mmHG Max Work Load: 1.0 METS Pharmacological stress test with Denia santoro pt swings her legs in chair, with reports of SOB and lightheadedness, without any arrythmkias, with normortensive response to injection. Nondiagnostic EKG for ischemia. In recovery, pt treated with IVP Aminophylline 75 mg to reverse Lexiscan after which pt feeling back to baseline. Nuclear images pending. Test reviewed with Dr. Cabrera. Referred By: Sarthak Valles Electronically Signed By: Yobani Roach
--- OUTSIDE RECORDS SUMMARY | 2025-04-28 10:15 | XMS_ITS | Patient Health Record ---
Author Organization [facility] Address [address] [address] [place] [address] Care Team Providers Care Impression Printer Name Role Phone Xander Chappell MD Primary Care Provider Porter Harrington Unavailable [phone] Allergies Allergen (clinical drug ingredient) Drug/Non Drug [...] TWICE A DAY NEEDED FOR 10 DAYS Oral; Duration: 10 Active hydroCHLOROthiazide 12.5 MG 1 capsule [...] until return with cast boot on 09/05/14 .; Duration: . 08/30/2014 Active Jelene 0.5 Active Problems Problem Type SNOMED Code ICD Code Onset Dates Problem Status W/U Status Risk Notes Problem Pain in limb (45835118) Pain in Limb (729.5) Active confirmed Problem Stress fracture (92103192) Stress fx (733.94) Active confirmed Plan Of Treatment Pending Test Test Name Order Date [id number] Destruction, -01/01/201276669-Oaqh Destruction, 11-0111/20/2011 [id number]-Nrfu Destruction, 11-0103/06/2014 [id number] Destruction, 11-0104/05/2014 Medical (General) History Medical History History ICD Code raynauds syndrome macular degeneration meningioma cancer multiple sclerosis Osteopenia Surgical History Surgery Date(Month/Year) breast surgery ear surgery tonsillectomy
--- OUTSIDE RECORDS SUMMARY | 2025-04-28 10:15 | XMS_ITS | Clinical Summary ---
Author Organization [facility] ity Address [address] [place] [address] Care Team Providers Care Cycle Manager Name Role Phone Unavailable Primary Care Provider [...] - 2023-2 5 season) 2024 Influenza Vaccine (#1) 2025 RSV Immunization Adult Patie nts (1 [...] 5 Years) and At-Risk Patients (6 to 49 Years) Aged Out No longer eligible b ased on patient's age to complete this topic RSV Immunization Patients Un bipin 20 months Aged Out No longer eligible b ased on patient's age to complete this topic Varicella Vaccines Aged Out No longer eligible based on patient's age to complete this topic
== END ==
LOC: HO.CARD 09:52
PROVIDERS: Visit Provider Internal Medicine
DX: I25.10 Atherosclerotic heart disease of native coronary artery without angina pectoris (principal); R07.2 Precordial pain
CPT/HCPCS: 78452; 93017; A9500; J0280; J2785

== ENCOUNTER → 2025-04-28 09:54 | Outpatient (BNV) | payer MEDICARE, SELFPAY | DX: R07.9 Chest pain, unspecified (principal) | CPT/HCPCS: 78452; 93016; 93018 ==

== ENCOUNTER 2025-05-05 14:33 | Outpatient (AMB) | payer MEDICARE, SELFPAY ==
--- OUTSIDE RECORDS SUMMARY | 2025-05-05 14:36 | XMS_ITS | Clinical Summary ---
Author Organization [facility] Address [address] [address] Phone Care Team Providers Care Adult Literacy Instructor Name Role Phone Ailyn Lynne PA-C Primary Care Provider [phone] Allergies Active Allergy Reactions Criticality Noted Date Comments Glatiramer 09/05/2024 Other Reaction(s): skin damage Levofloxacin Swelling 09/05/2024 Sulfa (Sulfonamide Antibiotics) Rash Low 09/05/2024 Teriflunomide 09/05/2024 Other Reaction(s): Unknown Tolterodine 09/05/2024 Medications ibuprofen (ADVIL,MOTRIN) 800 MG tablet Take 1 tablet by mouth as needed. Active dimethyl fumarate (TECFIDERA) 240 mg CpDR Take 1 capsule by mouth 2 (two) times a day. Active omeprazole (PRILOSEC) 20 MG capsule Take 1 capsule by mouth daily. Up to twice daily Active LORazepam (ATIVAN) 0.5 MG tablet Take 1 tablet (0.5 mg total) by mouth daily as needed for anxiety (prior to MRI). 2 tablet Active Additional Information Patient taking differently:0.5 mg Oral Daily as needed, anxiety, prior to MRI,Only for MRI'S, Reported on 12/26/2024 lisinopril (PRINIVIL,ZESTR IL) 5 MG tablet Take 3 tablets (15 mg total) by mouth daily. Take 2 tablets in the morning (10 mg) and one tablet at night (5mg) for a total of 15mg daily. 90 tablet 1 Active aspirin 81 MG EC tablet Take 81 mg by mouth daily. 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 She saw [facility] neurology on 10/15/2024 recommended CTA head and neck for possible right amaurosis fugax. CTA head and neck ordered today for assessment. Nonrheumatic aortic valve stenosis 10/04/2024 Assessment & Plan (11/01/2024 11:28 AM EST): She has an appointment with cardiology on 17/08/[address] Borges. Assessment & Plan (10/04/2024 3:46 PM EST): Patient had echo on 09/27/2024 which indicated moderate aortic valve stenosis. She was previously referred to [facility] cardiology however she has not heard from them. [facility] cardiology referral placed. Need for hepatitis C screening test 09/05/2024 Assessment & Plan (09/05/2024 4:45 PM EST): One-time screening ordered. Routine general medical exam ination at a health care facility 09/05/2024 Assessment & Plan (09/05/2024 4:45 PM EST): Labs ordered. Cardiac murmur, unspecified 09/05/2024 Assessment & Plan (09/05/2024 4:39 PM EST): She has a history of aortic valve regurgitation as shown on echo in 2018. Murmur auscultated on exam. Will obtain repeat echo. Colon cancer screening 09/05/2024 Assessment & Plan (09/05/2024 4:45 PM EST): She had a colonoscopy approximately 12 years ago which she says was negative but she will never do it again. We do not have records at this time. Will order Cologuard for colon cancer screening. Denies family history of colon cancer. Cigarette smoker 09/05/2024 Assessment & Plan (09/05/2024 4:44 PM EST): Smoking cessation discussed. Patient will start using nicotine gum for cessation. Female genital prolapse 09/05/2024 Assessment & Plan (09/05/2024 4:43 PM EST): She notes that when she was on the toilet she coughed a few weeks ago and noticed that something was coming out of her vagina. Most likely prolapse, she has not seen gynecology in over 20 years. Gynecology referral placed History of melanoma 09/05/2024 Assessment & Plan (09/05/2024 4:35 PM EST): She has a history of 2 episodes of melanoma. She has not been seen by nicker in extended period of time. Referral placed for dermatology. Neuropathy 09/05/2024 Assessment & Plan (09/05/2024 4:40 PM EST): She has neuropathy from her feet up to her mid thighs due to multiple sclerosis bilaterally. She also has decreased strength of her legs bilaterally. Podiatry referral placed for feet check/care. Multiple sclerosis 09/05/2024 Assessment & Plan (11/01/2024 11:32 AM EST): Patient has not had a repeat episode of the right eye blindness. She has a MRI brain and spine coming up on 11/13/2024 to assess for new MS lesions. She did see [facility] neurology on 10/15/2024 which recommended a CTA head and neck for possible right amaurosis fugax. CTA head and neck ordered. She does note that she gets extremely anxious and claustrophobic during MRIs, requesting refill of her lorazepam. [facility] reviewed. Lorazepam ordered for prior to MRI. She also notes that she has been unhappy with [facility] neurology. She is requesting to have a [facility] neurologist to follow her MS as she wants to have continuity of care as well as a second opinion. Referral placed. Assessment & Plan (10/04/2024 3:51 PM EST): Patient noting to have a new episode of vision loss 2 days ago that lasted around 2 minutes of her right eye. She did not seek any help at that time as she assumed it was due to her multiple sclerosis. She also is complaining of bilateral lower extremity numbness for a year and occasional dizziness. Will obtain repeat MRI of brain and cervical spine for further assessment. Patient does note upcoming appointment with [facility] neurology but is unsure of the date. At last visit [facility] neurology referral was placed and currently waiting on scheduling for second opinion. Patient wants to keep all providers through [facility] for continuity of care. On exam she does have decreased strength of her bilateral lower extremities as well as some decrease sensation of her bilateral lower extremities. Eye exam was benign in the office. Discussed with the patient that this could possibly be a new episode of her multiple sclerosis versus stroke versus TIA versus central retinal artery occlusion. Discussed with the patient that she should see her eye doctor for additional assessment. Assessment & Plan (09/05/2024 4:57 PM EST): She has a history of multiple sclerosis on dimethyl fumarate 240 mg twice daily. She is previously was prescribed gabapentin however she says that she has not been taking it. She is interested in restarting her gabapentin for symptom relief. She does see [facility] neurology, Hollie Garay MD. She was seen on 04/14/2024 and does have an upcoming appointment on 10/14/2024. She is interested in a neurology referral through [facility] for continuity of care, she is planning to keep her [facility] appointment until she receives a appointment with [facility]. She did have an MRI of her brain, cervical spine, thoracic spine in September 2023. MRI brain did show new lesions. She gets annual MRIs through neurology. Recommendation from [facility] eye physicians was to have a focus on the eyes for her next MRI. 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 She does follow [facility] eye physicians and was last seen 08/30/2024. Recommendation was to have an MRI to further focus on the left 6 cranial nerve while she was getting the MRI for neurology. Encounter for screening for lung cancer 09/05/20 24 Assessment & Plan (09/05/2024 4:44 PM EST): Patient has a 37.5 total pack years, current smoker. Low-dose CT scan ordered. History of unstable angina 09/05/2024 Assessment & Plan (09/05/2024 4:50 PM EST): She has a history of unstable angina, she continues to occasionally get episodes of chest pain that she is unable to describe that lasts less than 30 seconds. She does note that she had a nuclear stress test at one point as she could not do the exercise stress test due to her multiple sclerosis, she states she will never have a nuclear stress test again. We did discuss the importance of getting a stress test done to further assess her heart arteries, she states that she will reconsider it the next time that we meet. She will also reconsider cardiology referral at her next appointment. Discussed ER protocol including going to the ER for chest pain, shortness of breath for which patient is agreeable. Age-related incipient cataract of both eyes 08/19 Assessment & Plan (09/05/2024 4:48 PM EST): She was diagnosed with bilateral cataracts by her eye physician. She was last seen on 08/30/2024. At that time they did not note any interventions. Gastroesophageal reflux dise ase with esophagitis without hemorrhage 09/05/2024 Assessment & Plan (09/05/2024 4:50 PM EST): She has a history of GERD and is on omeprazole 20 mg daily, sometimes 40 mg if she does not find relief with the 20 mg. She does note nausea with emesis every other month with associated abdominal pain that is diffuse. No diarrhea, constipation, blood in her vomit. She does note improvement with omeprazole. Discussed getting an endoscopy to further assess, however due to patient's negative history with a colonoscopy, she does not want an endoscopy at this time. Discussed the importance of getting further imaging to assess and she continued to not want it. Breast pain 09/05/2024 Assessment & Plan (09/05/2024 4:59 PM EST): She does note bilateral breast pain, tender to the touch. No nipple discharge, masses, rashes. She does know that this was previously evaluated and she had a mammogram this year which was negative. She does have a family history of breast cancer. Breast physical exam denied at this time. We are attempting to obtain mammogram records from [facility]. Discussed the importance of evaluating, patient is not interested in further evaluation at this time. Cervical cancer screening 09/05/2024 Assessment & Plan (09/05/2024 4:52 PM EST): Patient has not had a Pap smear in over 20 years. Discussed the importance of cervical cancer screening. Gynecology referral placed for Pap smear. Aortic valve regurgitation 06/07/2018 Overview (06/07/2018): 05/2017 ECHO 2+AI; 1+ MR; EF 55-60% NO CHG 2016 Assessment & Plan (09/05/2024 4:36 PM EST): Moderate aortic regurgitation showed on echo on 07/23/2018 with ejection fraction of 65%. Murmur auscultated on exam. Will get repeat echo. Essential hypertension 06/07/2018 Assessment & Plan (11/01/2024 11:36 AM EST): Patient's blood pressure continues to be elevated in the office even though we increased to lisinopril 10 mg daily at our last visit. Majority of her systolics have been in the 150s, I do think it would benefit her to have an increased dose of her lisinopril. She does note 1 episode of feeling dizzy when her blood pressure got low, however this is only happened once. Will trial lisinopril 10 mg in the morning and 5 mg at night to prevent syncopal episodes. Patient in agreement, advised the patient to continue taking her blood pressure at home. Discussed side effects, discussed that if she gets dizzy, she should record her blood pressure and inform the office as well as do not take the next dose of her blood pressure medication. She is in agreement. Discussed that she should start taking her blood pressure at the same time every day as blood pressure gets affected by our daily events, she should take this when she is most relaxed. I did a repeat blood pressure on her in the office after she had rested for approximately 10 minutes, repeat blood pressure was 152/76. Will follow-up in 4 weeks to reassess blood pressure and medication management. Assessment & Plan (10/04/2024 3:50 PM EST): Patient continues to have an elevated blood pressure in the office, blood pressure today 152/80. Will increase her lisinopril to 10 mg daily. Patient advised to start taking her blood pressure at home. Side effects discussed, ER protocol discussed. Will follow-up with patient in 4 weeks for blood pressure management. Assessment & Plan (09/05/2024 4:37 PM EST): She has a history of hypertension on lisinopril 5 mg daily. Blood pressure elevated in office today. She does note that she was at the dentist recently and had an extremely elevated blood pressure. Discussed with the patient about keeping a blood pressure log for the next 2 weeks. Blood pressure cuff order placed for her pharmacy. She states that if the pharmacy cannot give it to her, she will get it [id number]. Discussed taking her blood pressure when she is most relaxed and at the same time of day. Will follow-up in 2 weeks to review blood pressure and medication management. Pure hypercholesterolemia 06/07/2018 Assessment & Plan (11/01/2024 11:28 AM EST): She states that she is going to get her repeat fasting lipid panel done tomorrow. Raynaud's disease 06/07/2018 Assessment & Plan (09/05/2024 4:37 PM EST): She has a history of Raynaud's. She was previously on gabapentin however stopped taking it as it made her tired. She is interested in restarting the medication. Tobacco use disorder 06/07/2018 Assessment & Plan (09/05/2024 4:44 PM EST): Discussed extensively about smoking cessation. She is interested in trying nicotine gum to help quit. Resolved Problems Problem Noted Date Diagnosed Date Resolved Date Unstable angina 09/05/2024 09/05/2024 Encounters Date Type Department Care Team Description 03/20/2025 Refill [facility] Internal Medicine [address] [place] [address] Ailyn Lynne PA-C Medication Refill 02/03/2025 Telephone [facility] Internal Medicine [address] [place] [address] Ailyn Lynne PA-C from Last 3 Months Immunizations Immunization Administration Dates Next Due COVID-19 (Pre-08/10) Pfizer Vaccine, mRNA, PF ,01/20/2021 Influenza Trivalent Preservative Free IM 015 Pneumococcal polysaccharide PPSV23 04/18/2011 Td, unspecified formulation 02/12/2007 Tdap 05/13/2012 Family History Medical History Relation Comments Heart attack Brother Heart attack Father Breast cancer Maternal Aunt Heart attack Maternal Uncle Heart attack Mother Breast cancer Sister had twice Relation Status Comments Brother Alive Father Maternal Aunt Alive Maternal Uncle Mother Sister Social History Tobacco Use Types Packs/Day Years Used Date Smoking Tobacco: Every Day Cigarettes 0.5 55.5 Started: 1970 Passive Smoke Exposure: Never Smokeless Tobacco: Never Tobacco Cessation:Ready to Q uit: Not Asked; Counseling Given: Not Answered Alcohol Use Standard Drinks/Week Comments Not Currently 0 (1 standard drink = 0.6 oz pur e alcohol) Child or Family Care Answer Date Record ed Do you have problems with on e of the following making it difficult for you to work, study, or receive health care? I choose not to answer 09/05/2024 Education Answer Date Recorded Are you interested in help w ith more adult education (for example, completing high school, GED, job training, learning the Chinese language, technical skills, or developing parenting skills)? I choose not to answer 09/05/2024 Are you concerned about learning? Not on file 09/05/2024 No 09/05/2024 Yes 09/05/2024 Food Answer Date Recorded Within the past 6 months we worried whether our food would run out before we got money to buy more. Never True 09/05/2024 Within the past 6 months the food we bought just didn't last and we didn't have enough money to get more. I choose not to answer 09/05/2024 Residential Stability Answer Date Recor ded What is your housing situation today? I have hemant muro 09/05/2024 How many times have you move d in the past 12 months? Zero (I did not move) 09/05/2024 Paying for Meds Answer Date Recorded Do you have trouble paying for medicines? I bridgette se not to answer 09/05/2024 Paying Utility Bills Answer Date Record ed Do you have trouble paying y our heating or electricity bill? I choose not to answer 09/05/2024 Transportation Answer Date Recorded Has the lack of transportati on kept you from medical appointments or from getting medications? No 09/05/2024 Digital Access Answer Date Recorded No 09/05/2024 Yes 09/05/2024 Do you have reliable internet access at home? I choose not to answer 09/05/2024 Do you have a device (e.g., phone, tablet, computer) with a working camera? Yes 09/05/2024 Intimate Partner Violence Answer Date R ecorded Denied Basic Needs Not on file 09/05/2024 In the past 12 months have y ou been in a relationship with a person who hurts, threatens, or tries to control you? No 09/05/2024 Worried food would run out Not on file 09/05 In the past 12 months have y ou been in a relationship with a person who hurts, threatens, or tries to control you? No 09/05/2024 Comments Unknown Sex and Gender Information Value Date Recorded Sex Assigned at Not on file Legal Sex Female 9:48 PM EDT Gender Identity Not on file Sexual Orientation Not on file Last Filed Vital Signs Vital Sign Reading Time Taken Comments Blood Pressure 152/90 12/26/2024 12:44 PM EDT Pulse 80 12/26/2024 12:44 PM EDT Temperature 35.9 C (96.7 F) 12/06/2024 12:41 PM EST Respiratory Rate 13 11/01/2024 10:45 AM EST Oxygen Saturation 97% 12/26/2024 12:44 PM EDT Inhaled Oxygen Concentration - - Weight 78 kg (172 lb) 12/26/2024 12:44 PM EDT Height 162.6 cm (5' 4.02 ) 12/26/2024 12:44 PM E DT Body Mass Index 29.51 12/26/2024 12:44 PM EDT Plan of Treatment Upcoming Encounters Date Type Department Care Team (Late st Contact Info) Description 06/06/2025 1:20 PM EDT Office Visit [facility] Internal Medicine [address] [place] [address] Ailyn Lynne PA-C [address] [place] [address] [email or web address] 06/30/2025 1:00 PM EDT Office Visit [facility] [address] [facility] [address]rd Floor, [address] [place], [place] [id number] Anabelle Ravi, STEPHANIE [address] [facility], [address] [place] [phone] [email or web address] Health Maintenance Due Date Last Done Comments COLOGUARD 2005 FIT TEST 2005 FOBT 2005 SIGMOIDOSCOPY 2005 VIRTUAL COLONOSCOPY 2005 ZOSTER VACCINES (1 of 2) 2010 PNEUMOCOCCAL VACCINES (50+ years) (2 of 2 - PCV) 04/18/2012 04/18/2011 MAMMOGRAM 06/09/2018 06/09/2016 RSV VACCINE (1 - Risk 60-74 years 1-dose series) 2020 Adult Td,Tdap Booster 05/13/2022 05/13/2012 , 02/12/2007 COVID-19 VACCINE (3 - 2023-2 5 season) 2024 02/10/2021, 01/20/2021 BLOOD PRESSURE 06/28/2025 12/26/2024 DEPRESSION SCREENING 09/05/2025 09/05/2024 LUNG CANCER SCREENING (LDCT Only) 09/25/2025 09/25/2024 CREATININE LEVEL 10/04/2025 10/04/2024, 04/14/2024, 04/14/2024 POTASSIUM LEVEL 10/04/2025 10/04/2024, 04/14/2024 LIPID PANEL 11/02/2025 11/02/2024, 10/04/2024, 07/04/2015 SMOKING Hx and SMOKELESS TOBACCO SCREENING 12/26/2025 12/26/2024 COLONOSCOPY 07/09/2026 07/09/2016 COLORECTAL CANCER SCREENING 07/09/2026 SCREENING FOR DIABETES 10/04/2027 10/04/2024 PAP SMEAR 11/02/2027 11/02/2024, 02/27/2011 HIV ONE-TIME SCREENING (18-6 5 YEARS) Completed 05/30/2022 HEPATITIS C SCREENING Completed 10/04/2024 HEPATITIS A VACCINES Aged Out No long er eligible based on patient's age to complete this topic HIB VACCINES Aged Out No longer eligi ble based on patient's age to complete this topic MENINGOCOCCAL VACCINES (ACWY) Aged Out No longer eligible based on patient's age to complete this topic MENINGOCOCCAL VACCINES (B) Aged Out N o longer eligible based on patient's age to complete this topic Medical Devices Not on file Procedures Procedure Name Priority Date/Time Associated Diagnosis Comments LIPID PANEL Routine 11/02/2024 2:20 PM EST Pure hypercholesterolemia PAP TEST Routine 11/02/2024 12:00 AM EST HEPATITIS C ANTIBODY, QUALITATIVE Routine 10/04/2024 2:11 PM EST Need for hepatitis C screening test COMPREHENSIVE METABOLIC PANEL Routine 10/04/2024 2:11 PM EST Routine general medical examination at a health care facility CT CHEST LUNG CANCER SCREENING INITIAL Routine 09/25/2024 10:59 AM EST Cigarette smoker OUTSIDE HIV Routine 05/30/2022 from Last 3 Months or Most Recently Relevant to Health Maintenance Results * (ABNORMAL) Lipid panel (11/02/2024 2:20 PM EST) HDL 52 mg/dL [facility] Comment: Interpretation <40 mg/dL: Low HDL cholesterol (major risk factor for CHD) Greater than or equal to 60 mg/dL: High HDL cholesterol ( negative risk factor for CHD) HDL - cholesterol is affected by a number of factors, e.g. smoking, excerise, hormones, sex and age. CHOLESTEROL 168 0 - 240 mg/dL [facility] TRIGLYCERIDES 159 30 - 160 mg/dL [facility] LDL 84 50 - 129 mg/dL [facility] Comment: LDL levels in terms of risk for coronary heart disease: <100 mg/dL: Optimal 100-129 mg/dL: Near or above optimal 130-159 mg/dL: Borderline high 160-189 mg/dL: High >190 mg/dL: Very High CARDIAC RISK RATIO 3.2(L) 3.3 - 4.4 C [facility] Blood 11/02/2024 2:20 PM EST 11/02/2024 2:27 PM EST Ailyn Lynne PA-C LAB BLOOD ORDERABLES Final R esult Performing Organization Address City/State/[facility] Co de Phone Number [address] [address] * Pap Test (11/02/2024 12:00 AM EST) 11/02/2024 11/03/2024 9:2 8 AM EST Narrative SEE NARRATIVE - 11/08/2024 3:16 PM EST [address] [address] Flatwork Catcher: Aba Katz MD OUTBOUND SALES ADVISOR Cytology Report FINAL DIAGNOSIS A. PAP SMEAR (THIN PREP) CE: SPECIMEN ADEQUACY: Satisfactory for evaluation; transformation zone present. INTERPRETATION: NEGATIVE FOR INTRAEPITHELIAL LESION OR MALIGNANCY. This specimen was analyzed by the automated ThinPrep Imaging System (Realitycheck.) and the selected frost were reviewed by a program analyst. Electronically Signed Out By: CLAUDIA Franks(ASCP) The Pap test is a screening test primarily for squamous cancers and precursors and has associated false-negative and false-positive results. New technologies such as liquid-based preparations may decrease but will not eliminate all false-negative results. Regular sampling and follow-up of unexplained clinical signs and symptoms are recommended to minimize false negative results. PROCEDURES/ADDENDA HPV Testing (Requested) Ordered Date: 11/03/2024 A. PAP SMEAR (THIN PREP) CE: High-risk HPV Panel w/ extended genotyping NEG HPV 16-NEG HPV 18-NEG HPV 45-NEG HPV 33/58-NEG HPV 31-NEG HPV 56/59/66-NEG HPV 51-NEG HPV 52-NEG HPV 35/39/68-NEG Performed by real-time polymerase chain reaction (PCR) at [facility], [address] [place] [address] using the FDA-approved Retora Black Onclarity9 HPV Assay with extended genotyping. Uses of the assay in scenarios other than those approved by the FDA should be considered off-label use. The accuracy and precision of this test for all other off-label specimen sources has been verified in the Cytopathology Laboratory of the [facility] and has not been cleared or approved by the U.S. Food and Drug Administration. Clinical correlation is advised. The assay assesses the E6/E7 DNA target and utilizes human beta globin as an internal control. Cytology and HPV testing are screening assays and should not be used as the sole means of detecting cancer. False-positives and false-negatives can occur. CLINICAL HISTORY Date of Last Menstrual Period: Not Provided Menstrual History: Post Menopausal Other Clinical Conditions: Screening Pap SPECIMEN SOURCE A: PAP SMEAR (THIN PREP) CE Patient Name: SELAM METCALF : 1960 (Age: 64) Sex: F Institution: [facility] Location: [facility] Date of Collection: 11/02/2024 Date of Reported: 11/08/2024 15:17 Results to: Cheyenne Sifuentes MD us Cheyenne Sifuentes MD CYTOLOGY ORDERABLES Final Resu lt SEE NARRATIVE * Comprehensive metabolic panel (10/04/2024 2:11 PM EST) SODIUM 139 133 - 146 mmol/L [facility] POTASSIUM 3.9 3.3 - 5.1 mmol/L [facility] CHLORIDE 101 96 - 108 mmol/L [facility] CO2 24 21 - 35 mmol/L [facility] BUN 14 6 - 19 mg/dL [facility] CREATININE 0.70 0.5 - 1.5 mg/dL [facility] GLUCOSE 86 70 - 99 mg/dL [facility] ALBUMIN 4.6 3.9 - 4.8 g/dL [facility] TOTAL PROTEIN 7.5 6.5 - 8.0 g/dL [facility] CALCIUM 10.2 8.4 - 10.3 mg/dL [facility] ALKALINE PHOSPHATASE 95 39 - 117 U/L [facility] TOTAL BILIRUBIN 0.4 0.0 - 1.2 mg/dL [facility] AST 17 0 - 37 U/L [facility] ALT 7 0 - 40 U/L [facility] GLOBULIN 2.9 1 - 4.8 g/dL [facility] EGFR 97 >59 mL/min/1.7 3m2 [facility] Comment:Estimated glomerular filtration rate calculated using the CKD-EPI refit equation. ANION GAP 18 10 - 20 mmol/L [facility] Blood 10/04/2024 2:11 PM EST 10/04/2024 2:17 PM EST [facility] LAB BLOOD ORDERABLES Final R esult Performing Organization Address City/[facility] Co de Phone Number [address] [address] * Hepatitis C antibody, qualitative (10/04/2024 2:11 PM EST) HCV NON-REACTIV E NON-REACTI VE [facility] Blood 10/04/2024 2:11 PM EST 10/04/2024 2:17 PM EST [facility] PA-C LAB BLOOD ORDERABLES Final R esult Performing Organization Address City/[facility]/ZIP Co de Phone Number [address] [address] * CT CHEST LUNG CANCER SCREENING INITIAL (09/25/2024 10:59 AM EST) Anatomical Region Laterality Modality Chest Computed Tomogra phy 09/27/2024 11:0 6 AM EST Impressions 09/27/2024 11:15 AM EST Lung-RADS Category: 2/S. Multiple pulmonary nodules. The category-determining solid nodule has a very low likelihood of becoming a clinically active cancer, due to size and/or lack of growth. There are potentially significant incidental finding (s): - severe amount of coronary calcifications. RECOMMENDATIONS: Continue annual Lung Cancer Screening Chest CT examination if patient meets eligibility criteria. Narrative 09/27/2024 11:[address] CHEST LUNG CANCER SCREENING INITIAL Referring clinician's provided indication for this examination in [facility]: Lung Cancer Screening - CURRENT smoker (20+ pk-yrs, age 50-80) - ICD -10 F17.210 TECHNIQUE: Low dose multidetector CT of the chest was performed without intravenous contrast using tailored dose modulation techniques. COMPARISON: CT chest dated January 22, 2019. FINDINGS: DEVICES/TUBES/LINES: None. THYROID: Heterogeneity of the thyroid gland. No nodules. MEDIASTINUM: There is no anterior or posterior mediastinal mass. No acute esophageal abnormality. HEART: The heart is of normal size without pericardial effusion. Mild aortic valvular calcifications. Three-vessel left-sided aortic arch. No aneurysm. Severe coronary artery calcifications are present. LYMPH NODES: No enlarged supraclavicular, axillary, mediastinal, or hilar lymph nodes. UPPER ABDOMEN: No acute abnormality is detected in the visualized upper abdomen. Absence of intravenous contrast limits sensitivity for detecting solid organ findings. LUNGS: The central airways demonstrate patency. No endotracheal or endobronchial lesions are identified. No consolidation is identified. No architectural distortion, or honeycomb change. Atelectasis within the dependent lung. There is a 3 mm nodule identified within the right lower lobe (image 188, series 3) unchanged. There is a 3 mm groundglass nodule within the superior segment of the right lower lobe (image 161, series 3). There is a 2 mm nodule within the inferior lateral aspect of the right upper lobe (image 156, series 3), stable. There is a 3 mm nodule within the right upper lobe (image 137, series 3). A 3 mm nodule is identified along the right minor fissure (image 155, series 3). There is a stable 3 mm nodule within the left lower lobe (image 186, series 3). No new or enlarging nodules are present. PLEURA: No pleural fluid or pneumothorax. No pleural-based masses. CHEST WALL: No masses or collections. BONES: Minor degenerative changes, no suspicious lesions. Remodeled fractures are identified along the inferolateral left ribs. There are spinal curvature convexity to the left. Procedure Note Nine, Armani Candelario MD - 09/27/2024 CT CHEST LUNG CANCER SCREENING INITIAL Referring clinician's provided indication for this examination in [facility]:Lung Cancer Screening - CURRENT smoker (20+ pk-yrs, age 50-80) - ICD -10F17.210 TECHNIQUE: Low dose multidetector CT of the chest was performed withoutintravenous contrast using tailored dose modulation techniques. COMPARISON: CT chest dated January 22, 2019. FINDINGS: DEVICES/TUBES/LINES: None. THYROID: Heterogeneity of the thyroid gland. No nodules. MEDIASTINUM: There is no anterior or posterior mediastinal mass. No acuteesophageal abnormality. HEART: The heart is of normal size without pericardial effusion. Mildaortic valvular calcifications. Three-vessel left-sided aortic arch. Noaneurysm. Severe coronary artery calcifications are present. LYMPH NODES: No enlarged supraclavicular, axillary, mediastinal, or hilarlymph nodes. UPPER ABDOMEN: No acute abnormality is detected in the visualized upperabdomen. Absence of intravenous contrast limits sensitivity for detectingsolid organ findings. LUNGS: The central airways demonstrate patency. No endotracheal orendobronchial lesions are identified. No consolidation is identified. Noarchitectural distortion, or honeycomb change. Atelectasis within thedependent lung. There is a 3 mm nodule identified within the right lower lobe (image 188,series 3) unchanged. There is a 3 mm groundglass nodule within thesuperior segment of the right lower lobe (image 161, series 3). There is a2 mm nodule within the inferior lateral aspect of the right upper lobe(image 156, series 3), stable. There is a 3 mm nodule within the rightupper lobe (image 137, series 3). A 3 mm nodule is identified along theright minor fissure (image 155, series 3). There is a stable 3 mm nodulewithin the left lower lobe (image 186, series 3). No new or enlargingnodules are present. PLEURA: No pleural fluid or pneumothorax. No pleural-based masses. CHEST WALL: No masses or collections. BONES: Minor degenerative changes, no suspicious lesions. Remodeledfractures are identified along the inferolateral left ribs. There arespinal curvature convexity to the left. IMPRESSION: Lung-RADS Category: 2/S. Multiple pulmonary nodules. Thecategory-determining solid nodule has a very low likelihood of becoming aclinically active cancer, due to size and/or lack of growth. There are potentially significant incidental finding (s): - severe amount of coronary calcifications. RECOMMENDATIONS: Continue annual Lung Cancer Screening Chest CT examination if patientmeets eligibility criteria. Ailyn Lynne PA-C IMG CT CHEST Final Result * OUTSIDE HIV TEST (05/30/2022) HIV - External Neg Historical Provider LAB BLOOD ORDERABLES Ally l Result from Last 3 Months or Most Recently Relevant to Health Maintenance Insurance [facility] MEDICARE REPLACEMENT MEDICARE PART A & B [facility] MEDICARE REPLACEMENT MEDICARE PART A & [facility] REPLACEMENT MEDICARE PART A & B [facility] MEDICARE REPLACEMENT MEDICARE PART A & B Member Subscriber Plan / Payer (Ef fective 2024-) Name:ConchaSelam Member ID:[id number] Relation to Subscriber:Self Name:Selam Metcalf Subscriber ID:[id number] Payer ID:[id number] Group ID:Not on file Type:Medicare Address: [employer] [facility] [address] [place] [address] [place] [address] [facility] MEDICARE REPLACEMENT MEDICARE PART A & B Member Subscriber Plan / Payer (Ef fective 2024-Present) Name:Selam Metcalf Member ID:[id number] Relation to Subscriber:Self Name:Selam Metcalf Subscriber ID:[id number] Payer ID:[id number] Group ID:Not on file Type:Medicare Address: [employer] [facility] [address] [place] [address] [facility] MEDICARE REPLACEMENT MEDICARE PART A & B Care Teams Adult Literacy Instructor Relationship Specialty Start Date End Date Ailyn Lynne PA-C [address] [place] [id number] [email or web address] PCP - General Physician Robotic Machine Operator 09/27/24 Additional Source Comments The information contained in this document represents components of the legal health record. It is not the complete legal health record.[facility]
--- OUTSIDE RECORDS SUMMARY | 2025-05-05 14:36 | XMS_ITS | Clinical Summary ---
Author Organization [facility] ity Address [address] [place] [address] Care Team Providers Care Sewer Separation Designer Name Role Phone Unavailable Primary Care Provider [...] Vaccine ( - 2023-2 5 season) 2024 Depression Screening 10/19/2024 Influenza Vaccine (#1) 2025 RSV Immunization Adult [...]
--- OUTSIDE RECORDS SUMMARY | 2025-05-05 14:36 | XMS_ITS | Patient Health Record ---
Author Organization [facility] Address [address] [place] [address] Care Team Providers Care Format Proofreader Name Role Phone Xander Chappell MD Primary Care Provider Porter Harrington Unavailable [phone] Allergies Allergen (clinical drug ingredient) Drug/Non Drug [...] Status Risk Notes Problem Pain in limb (64819314) Pain in Limb (729.5) Active confirmed Problem Stress fracture (33460630) Stress fx (733.94) Active confirmed Plan Of Treatment Pending Test Test Name Order Date [id number] Destruction, -01/01/201276192-Zskr Destruction, 11-0111/20/2011 [id number]-Bfli Destruction, 11-0103/06/2014 [id number]-Plvu Destruction, 11-0104/05/2014 Medical (General) History Medical History History ICD Code raynauds syndrome macular degeneration meningioma cancer multiple sclerosis Osteopenia Surgical History Surgery Date(Month/Year) breast surgery ear surgery tonsillectomy
[2025-05-05 14:37] VITALS: BP 118/60; PULSE 89; BMI 26.0
--- NOTE | 2025-05-05 14:37 | A.OFFVIS_ITS ---
Vital Signs 05/05/25 14:37 Height 5 ft 5 in Weight 156 lb 8.451 oz BMI 26.0 BP 118/60 Blood Pressure Location Lt brachial Position Sitting Pulse 89 Pulse Source Pulse Oximeter Intake Visit Reasons: follow up after tests Allergies corticotropin (From [facility] Allergy (Severe, Verified 09/16/23 22:14) SWELLING levofloxacin (From LEVAQUIN) Allergy (Severe, Verified 09/16/23 22:14) ANGIOEDEMA teriflunomide (From AUBAGIO) Allergy (Severe, Verified 09/16/23 22:14) SOB/HTN albumin human (From REBIF (WITH ALBUMIN)) Allergy (Intermediate, Verified 09/16/23 22:14) ARM INFECTION interferon beta-1a (From REBIF (WITH ALBUMIN)) Allergy (Intermediate, Verified 09/16/23 22:14) ARM INFECTION sulfamethoxazole (From BACTRIM) Allergy (Mild, Verified 09/16/23 22:14) RASH trimethoprim (From BACTRIM) Allergy (Mild, Verified 09/16/23 22:14) RASH fingolimod (From GILENYA) Allergy (Unknown, Verified 09/16/23 22:14) UNKNOWN REACTION glatiramer (copolymer 1) (Copaxone) Allergy (Unknown, Verified 09/16/23 22:14) damage skin 1st Choice Lancets Super Thin Allergy (Unknown, Uncoded 08/05/22 09:26) Unknown adhesives Allergy (Unknown, Uncoded 08/05/22 09:26) rash Medication List - Last Reconciled 05/05/25 by Yobani Roach NP atorvastatin (Lipitor) 20 mg PO BEDTIME dimethyl fumarate (Tecfidera) 240 mg PO BID lisinopril 15 mg PO DAILY omeprazole 40 mg PO DAILY HPI Comments Details: This is a 64-year-old female patient coming in for a follow-up visit. Patient with a history of hypertension, coronary artery disease, and multiple sclerosis. Patient was previously seen in the office for chest discomfort for which patient underwent a echo, and a myocardial perfusion study. Today, patient reports feeling well overall and denies any exertional chest pain, shortness of breath, palpitations, dizziness, orthopnea, PND, leg edema, presyncope, or syncope. Patient believes that her previously atypical symptoms of chest discomfort is related to her MS that she has upcoming MRI to check for any progression of her MS. Patient is otherwise reporting compliance with all her medications. [facility] Medical History Atherosclerotic cardiovascular disease Essential hypertension Hordeolum externum left lower eyelid Tobacco use disorder Multiple sclerosis Hypercholesterolemia Conjunctivitis Blepharitis of eyelid of right eye Surgical History History of breast biopsy History of ear surgery History of tonsillectomy Family History Mother No problems noted. Father No problems noted. Sister Breast cancer, Onset Age: 30 Maternal Aunt Breast cancer Social History Housing: House Alcohol intake: never Patient Tobacco Use Status: Current everyday Tobacco user Tobacco use type: Cigarette Cigarette Packs Per Day: 1 Cigarettes Per Day: 20 e-Cigarette/Vaping Use: Never Used Second Hand Smoke Exposure: Yes service: No Current occupational status: disabled Cognitive needs: Yes (cane) Hearing needs: No Vision needs: Yes (Glasses) Review of Systems Const Denies weakness ENT Denies dizziness Card Denies chest pain, Denies chest pain with activity, Denies syncope, Denies rapid heart rate, Denies pedal edema, Denies edema, Denies leg edema, Denies lightheadedness, Denies palpitations, Denies dyspnea, Denies dyspnea on exertion and Denies orthopnea Resp Denies cough, Denies dyspnea and Denies dyspnea on exertion GI Denies hematochezia and Denies change in stool character Musc Denies abnormal gait, Denies muscle cramps, Denies muscle weakness, Denies numbness, Denies radiating pain into limb and Denies tingling Neuro Denies abnormal gait, Denies dizziness, Denies syncope, Denies numbness, Denies tingling and Denies weakness Endo Denies palpitations Physical Exam Vital Signs: Last Vital Signs Pulse 89 05/05/25 14:37 BP 118/60 05/05/25 14:37 BMI result Body Mass Index 26.0 Const General: cooperative, healthy appearing, comfortable and no acute distress Orientation/consciousness: patient oriented x3 HEENT Head: Yes normal to inspection Neck Neck: Yes normal visual inspection, Yes trachea midline and Yes supple Chest Chest palpation & inspection: normal inspection of the chest Resp Effort & Inspection: normal respiratory effort Auscultation: clear to auscultation bilaterally, no crackles, no rales, no rhonchi and no wheezes Cardio Jugular venous distension: no JVD Palpation: normal PMI Rate: regular rate Rhythm: regular rhythm Heart sounds: S1 normal heart sound present, S2 normal heart sound present, no click, no gallops, no murmurs and no rubs Peripheral pulses: Peripheral pulses 2+ throughout GI Inspection: Yes normal to inspection Palpation (GI): Soft to palpation Auscultation: normal bowel sounds Skin General skin exam: no rashes or lesions noted Neuro General: patient oriented x3 Extrem General: Yes normal to inspection, No no pedal edema and No calf tenderness Psych Appearance: grossly normal Mental Status: mental status grossly normal Speech and movement: Normal speech and movement present Assessment & Plan Assessment & Plan (1) Atherosclerotic cardiovascular disease: Code(s): I25.10 - Atherosclerotic heart disease of [place] coronary artery without angina pectoris Category: Medical Plan: Coronary CTA from 2018 showed mild to moderate plaque in the proximal to distal LAD and throughout the RCA with mild plaque in the circumflex. Cardiac catheterization in 2018 showed moderate nonobstructive disease in the RCA with minimal disease in the left coronary arteries. Patient then underwent a abdominal CTA that showed severe calcifications and given her symptoms of chest discomfort, patient underwent a myocardial perfusion study. 03/24/2025-echo study showed a normal LV systolic function with an ejection fraction at 63% with mild aortic valve calcification and mild aortic valve regurgitation. 04/28/2025-myocardial perfusion study showed normal perfusion. Given above findings and resolution of her symptoms, no indications for further testing. Continue atorvastatin therapy with an LDL goal less than 70. (2) Essential hypertension: Code(s): I10 - Essential (primary) hypertension Category: Medical Plan: Blood pressure is well-controlled. Continue current regimen. Advised monitoring blood pressures at home and maintaining a log of it. Ideally, blood pressure goal less than 130/80. Advised heart healthy diet, regular exercise as tolerated, med compliance, and management of vascular risk factors. Follow up in 1 year. In the interim, patient will call the office with any concerns or change in symptoms. Advised to seek ER care in case of exertional chest pain not resolved with rest. This note was generated using voice recognition software. While every effort has been made to ensure accuracy and proper diagnostic technologist, there may be occasional errors that could affect the content or meaning of the described symptoms. Coding Level of Care Code Est Pt Level 4 (11683) Complex EM visit Add On G2211 Diagnoses Atherosclerotic cardiovascular disease I25.10 Essential hypertension I10 Time Spent (min) 31 Comment Time spent in reviewing the chart, test results, assessment, counseling and documentation.
== END 2025-05-05 15:03 | disposition home or self-care (01) ==
DX: I25.10 Atherosclerotic heart disease of native coronary artery without angina pectoris (principal); I10 Essential (primary) hypertension
CPT/HCPCS: 99214; G2211

== ENCOUNTER → 2025-05-05 14:33 | Outpatient (BNVA) | payer MEDICARE, SELFPAY | DX: I25.10 Atherosclerotic heart disease of native coronary artery without angina pectoris (principal); I10 Essential (primary) hypertension; G35 Multiple sclerosis; Z79.899 Other long term (current) drug therapy | CPT/HCPCS: 99212 ==

== ENCOUNTER 2025-07-06 13:43 | Outpatient (REF) | payer MEDICARE, SELFPAY ==
--- OUTSIDE RECORDS SUMMARY | 2025-07-06 15:40 | XMS_ITS | Clinical Summary ---
Author Organization [facility] ity Address [address] [place] [address] Care Team Providers Care Industrial Sewer Name Role Phone Unavailable Primary Care Provider [...] 2010 Zoster Vaccines (1 of 2) 2010 Depression Screening 10/19/2024 COVID-19 Vaccine (1 - 2023-2 5 season) 2025 Influenza Vaccine (#1) 2025 RSV Immunization Adult [...]
== END 2025-07-06 13:44 | disposition home or self-care (01) ==
LOC: HO.MAMMO 13:43
DX: Z12.31 Encounter for screening mammogram for malignant neoplasm of breast (principal)
CPT/HCPCS: 77063; 77067

== ENCOUNTER → 2025-07-06 14:00 | Outpatient (BNV) | payer MEDICARE, SELFPAY | PROVIDERS: Visit Provider Internal Medicine | DX: Z12.31 Encounter for screening mammogram for malignant neoplasm of breast (principal) | CPT/HCPCS: 77063; 77067 ==

== ENCOUNTER 2025-07-19 08:16 | Outpatient (REF) | payer MEDICARE, SELFPAY ==
--- NOTE | ~2025-07-19 | MM_ITS ---
EXAMINATION: MM DIAGNOSTIC DIGITAL BREAST TOMOSYNTHESIS, BILATERAL Bilateral Limited ultrasound. CLINICAL INFORMATION: Call back from screening for bilateral asymmetries. Patient has a family history of breast cancer including sister and maternal aunt. COMPARISON: Mammography: Comparison is made with relevant prior exams. TECHNIQUE: Digital breast mammography with tomosynthesis is performed in both the craniocaudal and mediolateral oblique views along with computer-aided detection (CAD). FINDINGS: There are scattered areas of fibroglandular density. Left: Circumscribed oval mass persists in the retroareolar region on CC view. No suspicious calcifications or other abnormal findings. Targeted color Doppler ultrasound scanning in the retroareolar region and lower breast demonstrates a hypoechoic oval parallel circumscribed solid mass versus complicated cyst at 6:00 6 cm from the nipple measuring 7 x 2 x 6 mm which correlates with the circumscribed oval mass. Right: Asymmetry medial breast anterior depth with questioned architectural distortion persist. No suspicious calcifications or other abnormal findings. Targeted color Doppler ultrasound scanning in the medial right breast from 1-5 o'clock demonstrates normal follicular breast tissue. There is no sonographic abnormal finding to account for the asymmetry with questioned distortion. Results are discussed with the patient at time of visit. MM/MM tomosynthesis added view BI IMPRESSION: Left: Hypoechoic oval circumscribed solid mass at 6:00. Probably benign. Recommend 6 month follow-up ultrasound for further evaluation of stability. Right: Asymmetry with questioned distortion without sonographic correlate medial right breast anterior depth. Recommend histology with stereotactic core needle biopsy at this time. The findings and recommendations were discussed with the patient the procedure will be scheduled. ASSESSMENT: BI-RADS Category 4: Suspicious RECOMMENDATION: Biopsy recommended Electronically signed by: Roula Thibodeaux DO 07/19/2025 12:32 PM EDT
--- OUTSIDE RECORDS SUMMARY | 2025-07-19 08:42 | XMS_ITS | Patient Health Record ---
Author Organization [facility] Address [address] [place] [address] Care Team Providers Care Faculty Research Physician Name Role Phone Xander Chappell MD Primary Care Provider Porter Harrington Unavailable [phone] Allergies Allergen (clinical drug ingredient) Drug/Non Drug [...] Status Risk Notes Problem Pain in limb (76669044) Pain in Limb (729.5) Active confirmed Problem Stress fracture (10225067) Stress fx (733.94) Active confirmed Plan Of Treatment Pending Test Test Name Order Date [id number] Destruction, -01/01/201237408-Xdga Destruction, 11-0111/20/2011 [id number] Destruction, 11-0103/06/2014 [id number]-Farc Destruction, 11-0104/05/2014 Medical (General) History Medical History History ICD Code raynauds syndrome macular degeneration meningioma cancer multiple sclerosis Osteopenia Surgical History Surgery Date(Month/Year) breast surgery ear surgery tonsillectomy
--- OUTSIDE RECORDS SUMMARY | 2025-07-19 08:42 | XMS_ITS | Clinical Summary ---
Author Organization [facility] [address] ity Address [address] [place] [address] Care Team Providers Care Paid Search Marketing Analyst Name Role Phone Unavailable Primary Care Provider [...]
== END 2025-07-19 08:17 | disposition home or self-care (01) ==
LOC: HO.MAMMO 08:16
DX: N64.89 Other specified disorders of breast (principal)
CPT/HCPCS: 76642; 77062; 77066

== ENCOUNTER → 2025-07-19 08:30 | Outpatient (BNV) | payer MEDICARE, SELFPAY | PROVIDERS: Visit Provider Internal Medicine | DX: R92.8 Other abnormal and inconclusive findings on diagnostic imaging of breast (principal) | CPT/HCPCS: 76642; 77066; G0279 ==

== ENCOUNTER 2025-07-26 07:36 | Outpatient (REF) | payer MEDICARE, SELFPAY ==
--- NOTE | ~2025-07-26 | MM_ITS ---
EXAMINATION: STEREOTACTICALLY-GUIDED RIGHT BREAST BIOPSY CLINICAL INFORMATION: Asymmetry with questioned distortion medial right breast CC view here for stereotactic core needle biopsy. COMPARISON: Priors on PACS. INFORMED CONSENT: After the details of the procedure, as well as the risks (including, but not limited to, bleeding, hematoma formation, and infection), benefits and alternatives (including doing nothing, short-interval follow up, and surgery) to the procedure were explained to the patient in detail and all of her questions were answered, informed written consent was obtained. TECHNIQUE/FINDINGS: A timeout was performed confirming patients name date of side and site of procedure. The lesion intended for biopsy was identified stereotactically and targeted. The skin of the right breast was then cleansed with sterile solution. Using stereotactic guidance, aseptic technique, and 1% lidocaine with and without epinephrine for local anesthesia, a total of 12 cores were obtained through the targeted area with a 9-gauge vacuum-assisted Eviva core biopsy device from a superior approach. At the completion of tissue sampling, a single top hat-shaped metallic clip was deposited at the biopsy site. Adequate sampling was achieved. The postprocedure 2-view direct digital mammogram reveals satisfactory positioning of the biopsy clip. The patient tolerated the procedure well and, after assuring adequate hemostasis, was discharged in good condition after reviewing postbiopsy breast care instructions. Final pathology results are pending. MM/MM stereotactic biopsy RT IMPRESSION: 1. Uncomplicated stereotactically-guided core biopsy of the right breast. The 2-view direct digital postprocedure mammogram reveals satisfactory positioning of the biopsy clip. 2. Final pathology results are pending. A separate report with final recommendations will be issued once these results are made available. Electronically signed by: Roula Thibodeaux DO 07/26/2025 02:24 PM EDT
--- OUTSIDE RECORDS SUMMARY | 2025-07-26 07:39 | XMS_ITS | Clinical Summary ---
Author Organization [facility] Address [address] [place] [phone] Phone Care Team Providers Care Knitting Teacher Name Role Phone Ailyn Lynne PA-C Primary Care Provider Allergies Active Allergy Reactions Criticality Noted Date [...] for anxiety (prior to MRI). 2 tablet 5 Active Additional Information Patient taking differently:0.5 mg Oral Daily as needed, anxiety, prior to MRI,Only for MRI'S, Reported on 06/06/2025 aspirin 81 MG EC tablet Take 81 mg by mouth daily. Active atorvastatin (LIPITOR) 20 MG tablet TAKE 1 TABLET BY MOUTH DAILY 90 tablet 3 Active cholecalciferol (VITAMIN D3) 400 unit tablet Take 400 Units by mouth daily. Active lisinopril (PRINIVIL,ZESTRI L) 5 MG tabletIndication s:Essential hypertension Take 2 tablets (10 mg total) by mouth every morning. 60 tablet 2 5 Active lisinopril (PRINIVIL,ZESTRI L) 5 MG tabletIndication s:Essential hypertension Take 1 tablet (5 mg total) by mouth Every Afternoon. 30 tablet 2 5 Active Active Problems Problem Noted Date Diagnosed Date Chronic left shoulder pain 06/06/2025 Assessment & Plan (06/06/2025 2:13 PM EDT): She reports chronic left shoulder pain for several months, exacerbated by lifting her arm and lying on it. There is some tenderness palpation along the left scapula but no point tenderness, no palpable deformities. Negative drop arm test and empty can test bilaterally. Will obtain a shoulder x-ray to further assess. If shoulder x-ray negative, will refer to orthopedics for further assessment. Skin soreness 06/06/2025 Assessment & Plan (06/06/2025 2:13 PM EDT): She notes some soreness of her skin along her left flank, no overlying rashes noted on examination today. No tenderness to palpation. Negative CVA tenderness on the left. Amaurosis fugax 11/01/2024 Assessment & Plan (11/01/2024 11:35 AM EST): At last visit patient reported a 2-minute episode of right eye blindness, MRI brain and spine was ordered to assess new MS lesions. She saw [facility] neurology on 10/15/2024 recommended CTA head and [...] valve stenosis. She was previously referred to [facility] cardiology however she has not heard from them. [facility] cardiology referral placed. Routine general medical exam ination at a [facility] care [facility] 09/05/2024 Assessment & Plan (06/06/2025 2:13 PM EDT): We will attempt to get the records for her mammogram that she had done at [facility]. Up-to-date with Pap smear. Advised her to complete her Cologuard test for colon cancer screening. Assessment & Plan (09/05/2024 4:45 PM EST): Labs ordered. Cardiac murmur, unspecified 09/05/2024 Assessment & Plan (09/05/2024 4:39 PM EST): She has a history of aortic valve regurgitation as shown on echo in 2018. Murmur auscultated on exam. Will obtain repeat echo. Cigarette smoker 09/05/2024 Assessment & Plan (09/05/2024 [...] melanoma. She has not been seen by airfield manager in extended period of time. Referral placed for dermatology. Neuropathy 09/05/2024 Assessment & Plan (09/05/2024 4:40 PM EST): She has neuropathy from her feet up to her mid thighs due to multiple sclerosis bilaterally. She also has decreased strength of her legs bilaterally. Podiatry referral placed for feet check/care. Multiple sclerosis 09/05/2024 Assessment & Plan (06/06/2025 2:12 PM EDT): Following with [facility] neurology, has an upcoming appointment in September with likely MRIs. 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 She has a MRI brain and spine coming up on 11/13/2024 to assess for new MS lesions. She did see [facility] neurology on 10/15/2024 which recommended a CTA head and neck for possible right amaurosis fugax. CTA head and neck ordered. She does note that she gets extremely anxious and claustrophobic during MRIs, requesting refill of her lorazepam. MassPAT reviewed. Lorazepam ordered for prior to MRI. She also notes that she has been unhappy with [facility] neurology. She is requesting to have a [facility] neurologist to follow her MS as [...] assessment. Patient does note upcoming appointment with [facility] neurology but is unsure of the date. At last visit [facility] neurology referral was placed and currently waiting on scheduling for second opinion. Patient wants to keep all providers through [facility] for continuity of care. On exam she [...] gabapentin for symptom relief. She does see [facility] neurology, Hollie Garay MD. She was seen on 04/14/2024 and does have an upcoming appointment on 10/14/2024. She is interested in a neurology referral through [facility] for continuity of care, she is planning to keep her [facility] appointment until she receives a appointment with [facility]. She did have an MRI of her brain, cervical spine, thoracic spine in September 2023. MRI brain did show new lesions. She gets annual MRIs through neurology. Recommendation from [facility] eye physicians was to have a focus on the eyes for her next MRI. 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 She does follow [facility] eye physicians and was last seen 08/30/2024. Recommendation was to have an MRI to further focus on the left 6 cranial nerve while she was getting the MRI for neurology. History of unstable angina 09/05/2024 Assessment & [...] are attempting to obtain mammogram records from [facility]. Discussed the importance of evaluating, patient is not interested in further evaluation at this time. Aortic valve regurgitation 06/07/2018 Overview (06/07/2018): 05/2017 ECHO 2+AI; 1+ MR; EF 55-60% NO CHG 2015 Assessment & Plan (09/05/2024 4:36 PM EST): Moderate aortic regurgitation showed on echo on 07/23/2018 with ejection fraction of 65%. Murmur auscultated on exam. Will get repeat echo. Essential hypertension 06/07/2018 Assessment & Plan (06/06/2025 2:12 PM EDT): Well-controlled on lisinopril 15 mg daily, refill sent to [facility] home delivery. Assessment & Plan (11/01/2024 11:36 AM EST): [...] it to her, she will get it [id number]. Discussed taking her blood pressure when she [...] Problem Noted Date Diagnosed Date Resolved Date Need for hepatitis C screening test 09/05/2024 06/06/2025 Assessment & Plan (09/05/2024 4:45 PM EST): One-time screening ordered. Colon cancer screening 09/05/202406/06 Assessment & Plan (09/05/2024 4:45 PM EST): She had a colonoscopy approximately 12 years ago which she says was negative but she will never do it again. We do not have records at this time. Will order Cologuard for colon cancer screening. Denies family history of colon cancer. Encounter for screening for lung cancer 09/05/2024 06/06/2025 Assessment & Plan (09/05/2024 4:44 PM EST): Patient has a 37.5 total pack years, current smoker. Low-dose CT scan ordered. Unstable angina 09/05/2024 09/05/2024 Cervical cancer screening 09/05/2024 Assessment & Plan (09/05/2024 4:52 PM EST): Patient has not had a Pap smear in over 20 years. Discussed the importance of cervical cancer screening. Gynecology referral placed for Pap smear. Encounters Date Type Department Care Team Description 07/21/20[address] Orders [address] [facility] [address] [place] [address] Ailyn Lynne PA-C Mass of left breast, unspecified quadrant (Primary Dx) 07/21/2025 Orders Only [facility] [address] [facility] [address] Paul Fountain MD 07/19/2025 Orders Only [facility] [address] [facility] [place] [address] Paul Fountain MD 07/19/2025 Telephone [facility] [address] [facility] [place] [address] Ailyn Lynne PA-C Request For Order(s) 07/11/2025 Telephone [facility] [address] [facility] [place] [address] Ailyn Lynne PA-C Results; Request For Order(s); Breast Cancer Screening 07/10/2025 Orders Only [facility] [address] [place] [address] Paul Fountain MD 06/13/2025 Telephone [facility] [address] [place] [address] Masters, Juan Medication Prior Authorization (Lisinopril 5mg) 06/09/2025 Refill [facility] [address] [place] [address] Nannette Worrell, FIREWALL SECURITY ENGINEER Med Change Request 06/09/2025 Refill [facility] [address] [place] [address] Ailyn Lynne PA-C Medication Problem 06/07/2025 Orders Only [facility] [address] [facility] [place] [address] Paul Fountain MD 06/06/2025 1:20 PM EDT Office Visit [facility] [address] [place] [address] Ailyn Lynne PA-C Essential hypertension (Primary Dx); Chronic left shoulder pain; Multiple sclerosis; Skin soreness; Routine general medical examination at a health care facility 06/06/2025 Refill [facility] [address] [place] [address] Ailyn Lynne PA-C Medication Question from Last 3 Months Immunizations Immunization Administration Dates Next Due COVID-19 (Pre-08/10) Pfizer Vaccine, mRNA, PF ,01/20/2021 INFLUENZA, SPLIT VIRUS, TRIVALENT PF 08/24/2015 Pneumococcal polysaccharide PPSV23 04/18/2011 Td, unspecified formulation [...] Date Smoking Tobacco: Every Day Cigarettes 0.5 55.8 Started: 1969 Passive Smoke Exposure: Never Smokeless Tobacco: Never [...] high school, GED, job training, learning the Upper Sor[place] language, technical skills, or developing parenting skills)? [...] your housing situation today? I have hemant sing 09/05/2024 How many times have you move [...] Sign Reading Time Taken Comments Blood Pressure 126/82 06/06/2025 1:11 PM EDT Pulse 73 06/06/2025 1:11 PM EDT Temperature 36.2 C (97.1 F) 06/06/2025 1:11 PM EDT Respiratory Rate 12 06/06/2025 1:11 PM EDT Oxygen Saturation 94% 06/06/2025 1:11 PM EDT Inhaled Oxygen Concentration - - Weight 73 kg (161 lb) 06/06/2025 1:11 PM EDT Height 162.6 cm (5' 4.02 ) 06/06/2025 1:11 PM ED T Body Mass Index 27.62 06/06/2025 1:11 PM EDT Plan of Treatment Upcoming Encounters Date Type Department Care Team (Late st Contact Info) Description 09/12/2025 11:20 AM EST Office Visit [facility] [address] [place] [address] Ailyn Lynne PA-C [address] [place] [address] [email or web address] Health Maintenance Due Date Last Done Comments COLOGUARD 2005 FIT TEST 2005 FOBT 2005 SIGMOIDOSCOPY 2005 VIRTUAL COLONOSCOPY 2005 ZOSTER VACCINES (1 of 2) 2010 PNEUMOCOCCAL VACCINES (50+ years) (2 of 2 - PCV) 04/18/2012 04/18/2011 Adult Td,Tdap Booster 05/13/2022 05/13/2012, 007 INFLUENZA VACCINE (#1) 2025 08/24/2015 COVID-19 VACCINE ( season) 2025 02/10/2021, 01/20/2021 DEPRESSION SCREENING 09/05/2025 09/05/2024 LUNG CANCER SCREENING (LDCT Only) 09/25/2025 09/25/2024 CREATININE LEVEL 10/04/2025 10/04/2024, , 04/14/2024 POTASSIUM LEVEL 10/04/2025 10/04/2024, 04/14/2024 LIPID PANEL 11/02/2025 11/02/2024, 09/18, 07/04/2015 BLOOD PRESSURE 12/07/2025 06/06/2025 SMOKING Hx and SMOKELESS TOBACCO SCREENING 06/06/2026 06/06/2025 COLONOSCOPY 07/09/2026 07/09/2016 COLORECTAL CANCER SCREENING 07/09/2026 MAMMOGRAM 07/19/2027 07/19/2025, 06/20, 07/06/2025, Additional history exists SCREENING FOR DIABETES 10/04/2027 10/04/2024 PAP SMEAR 11/02/2027 11/02/2024, 02/27/2011 RSV VACCINE (1 - 1-dose 75+ series) 2035 HIV ONE-TIME SCREENING (18-65 YEARS) Completed 05/30/2022 HEPATITIS C SCREENING Completed [...] Procedure Name Priority Date/Time Associated Diagnosis Comments BI US BREAST (LEFT) Routine 07/21/2025 3 :47 PM EDT Mass of left breast, unspecified quadrant HM MAMMOGRAPHY Routine 07/19/2025 3:34 PM EDT OUTSIDE IMAGING Routine 07/19/2025 3:33 PM EDT OUTSIDE US BREAST REPORT ONLY Routine 07/19/2025 3:32 PM EDT BI US BREAST (BILATERAL) Routine 07/12/2025 2:27 PM EDT Breast asymmetry BI MAMMOGRAM DIAGNOSTIC (BILATERAL) Routine 07/12/2025 2:27 PM EDT Breast asymmetry HM MAMMOGRAPHY Routine 07/06/2025 4:13 PM EDT XR SHOULDER (LEFT) Routine 06/06/2025 1: 38 PM EDT Chronic left shoulder pain OUTSIDE NM IMAGING REPORT ONLY Routine 04/28/2025 7:45 AM EDT OUTSIDE CARDIOLOGY Routine 04/28/2025 7: 43 AM EDT LIPID PANEL Routine 11/02/2024 2:20 PM EST Pure hypercholesterolemia PAP TEST Routine 11/02/2024 12:00 AM EST HEPATITIS C ANTIBODY, QUALITATIVE Routine 10/04/2024 2:11 PM EST Need for hepatitis C screening test COMPREHENSIVE METABOLIC PANEL Routine 10/04/2024 2:11 PM EST Routine general medical examination at a [facility] care facility CT CHEST LUNG CANCER SCREENING INITIAL Routine 09/25/2024 10:59 AM EST Cigarette smoker OUTSIDE HIV Routine 05/30/2022 from Last 3 Months or Most Recently Relevant to Health Maintenance Results * HM MAMMOGRAPHY FOR RESULT ENTRY ONLY (07/19/2025 3:34 PM EDT) Historical Provider HEALTH MAINTENANCE Final Result * Outside Imaging Report Only (07/19/2025 3:33 PM EDT) Historical Provider MD DENSON XR CHEST Final Res ult * Outside US Breast Report Only (07/19/2025 3:32 PM EDT) Historical Provider MD DENSON US BREAST Final Res ult * HM MAMMOGRAPHY FOR RESULT ENTRY ONLY (07/06/2025 4:13 PM EDT) Historical Provider HEALTH MAINTENANCE Final Result * Outside NM Imaging Report Only (04/28/2025 7:45 AM EDT) Historical Provider MD DENSON NM ABDOMEN Edited Re sult - Final * Outside Cardiology Report Only (04/28/2025 7:43 AM EDT) Historical Provider CV CARDIAC SERVICES ORDER DILIP Edited Result - Final * (ABNORMAL) Lipid panel (11/02/2024 2:20 PM EST) HDL 52 mg/dL [facility] Comment: Interpretation <40 mg/dL: Low HDL cholesterol (major risk factor for CHD) Greater than or equal to 60 mg/dL: High HDL cholesterol ( negative risk factor for CHD) HDL - cholesterol is affected by a number of factors, e.g. smoking, excerise, hormones, sex and age. CHOLESTEROL 168 0 - 240 mg/dL [facility] TRIGLYCERIDES 159 30 - 160 mg/dL [facility] LDL 84 50 - 129 mg/dL [facility] Comment: LDL levels in terms of risk for coronary heart disease: <100 mg/dL: Optimal 100-129 mg/dL: Near or above optimal 130-159 mg/dL: Borderline high 160-189 mg/dL: High >190 mg/dL: Very High CARDIAC RISK RATIO 3.2(L) 3.3 - 4.4 C [facility] Blood 11/02/2024 2:20 PM EST 11/02/2024 2:27 PM EST Ailyn Lynne PA-C LAB BLOOD ORDERABLES Final R esult [address] [address] * Pap Test (11/02/2024 12:00 AM EST) 11/02/2024 11/03/2024 9:2 8 AM EST Narrative SEE NARRATIVE - 11/08/2024 3:16 PM EST [address] [address] Senior National Account Manager: Aba Katz MD PAN OPERATOR Cytology Report FINAL DIAGNOSIS A. PAP SMEAR (THIN PREP) CE: SPECIMEN ADEQUACY: Satisfactory for evaluation; transformation zone present. INTERPRETATION: NEGATIVE FOR INTRAEPITHELIAL LESION OR MALIGNANCY. This specimen was analyzed by the automated ThinPrep Imaging System (Miproto.) and the selected frost were reviewed by a director of quality control. Electronically Signed Out By: CLAUDIA Franks(ASCP) The [...] by real-time polymerase chain reaction (PCR) at [facility], [address] [place] [address] using the FDA-approved BD Onclarity9 HPV Assay with extended genotyping. Uses of the assay in scenarios other than those approved by the FDA should be considered off-label use. The accuracy and precision of this test for all other off-label specimen sources has been verified in the Cytopathology Laboratory of the [facility] and has not been cleared or approved [...] : 1960 (Age: 64) Sex: F Institution: [facility] Location: [facility] Date of Collection: 11/02/2024 Date of Reported: 11/08/2024 15:17 Results to: Cheyenne Sifuentes MD us Cheyenne Sifuentes MD CYTOLOGY ORDERABLES Final Resu lt SEE NARRATIVE * Comprehensive metabolic panel (10/04/2024 2:11 PM EST) SODIUM 139 133 - 146 mmol/L [facility] POTASSIUM 3.9 3.3 - 5.1 mmol/L [facility] CHLORIDE 101 96 - 108 mmol/L [facility] CO2 24 21 - 35 mmol/L [facility] BUN 14 6 - 19 mg/dL [facility] CREATININE 0.70 0.5 - 1.5 mg/dL [facility] GLUCOSE 86 70 - 99 mg/dL [facility] ALBUMIN 4.6 3.9 - 4.8 g/dL [facility] TOTAL PROTEIN 7.5 6.5 - 8.0 g/dL [facility] CALCIUM 10.2 8.4 - 10.3 mg/dL [facility] ALKALINE PHOSPHATASE 95 39 - 117 U/L [facility] TOTAL BILIRUBIN 0.4 0.0 - 1.2 mg/dL [facility] AST 17 0 - 37 U/L [facility] ALT 7 0 - 40 U/L [facility] GLOBULIN 2.9 1 - 4.8 g/dL [facility] EGFR 97 >59 mL/min/1.7 3m2 [facility] Comment:Estimated glomerular filtration rate calculated using the CKD-EPI refit equation. ANION GAP 18 10 - 20 mmol/L [facility] Blood 10/04/2024 2:11 PM EST 10/04/2024 2:17 PM EST [facility] PA-C LAB BLOOD ORDERABLES Final R esult Performing Organization Address City/[facility]/ZIP Co de Phone Number [address] [address] * Hepatitis C antibody, qualitative (10/04/2024 2:11 PM EST) HCV NON-REACTIV E NON-REACTI VE [facility] Blood 10/04/2024 2:11 PM EST 10/04/2024 2:17 PM EST [facility] LAB BLOOD ORDERABLES Final R esult Performing Organization Address City/[facility] Co de Phone Number [address] [address] * CT CHEST LUNG CANCER SCREENING INITIAL [...] clinician's provided indication for this examination in [facility]: Lung Cancer Screening - CURRENT [...] clinician's provided indication for this examination in [facility]:Lung Cancer Screening - CURRENT smoker [...] Most Recently Relevant to Health Maintenance [place] [address] [address] [address] [facility] MEDICARE REPLACEMENT MEDICARE PART A & B [facility] MEDICARE REPLACEMENT MEDICARE PART A & B [place] [facility] MEDICARE REPLACEMENT MEDICARE PART A & B [place] [facility] MEDICARE REPLACEMENT MEDICARE PART A & B [facility] MEDICARE REPLACEMENT MEDICARE PART A & B [facility] MEDICARE REPLACEMENT MEDICARE PART A & B Care Teams Knitting Teacher Relationship Specialty Start Date End Date Ailyn Lynne PA-C [address] [place] [id number] [email or web address] PCP - General Physician Mushroom Cutter 09/27/24 Additional Source Comments The information contained in this document represents components of the legal health record. It is not the complete legal health record.[facility]
--- OUTSIDE RECORDS SUMMARY | 2025-07-26 07:40 | XMS_ITS | Encounter Summary ---
Author Organization [facility] Address [address] [place] [phone] Phone Care Team Providers Care Transit Planning Manager Name Role Phone Ailyn Lynne PA-C Primary Care Provider [phone] Encounter Details Date Type Department Care Team (Late st Contact Info) Description 12/06/2024 Procedure Pass [facility], Ct Scan - [address] [address] Social History Tobacco Use Types Packs/Day Years Used Date Smoking Tobacco: Every Day Cigarettes 0.5 55.8 Started: 1970 Passive Smoke Exposure: Never Smokeless Tobacco: Never Alcohol Use Standard Drinks/Week Comments Not Currently [...] high school, GED, job training, learning the [place]ian language, technical skills, or developing parenting skills)? [...] on file Sexual Orientation Not on file documented as of this encounter Plan of Treatment Upcoming Encounters Date Type Department Care Team (Late st Contact Info) Description 09/12/2025 11:20 AM EST Office Visit [facility] [address] [place] [address] Ailyn Lynne PA-C [address] [place] [address] [email or web address] documented as of this encounter Visit Diagnoses Not on filedocumented in this encounter Additional Health Concerns Assessment Noted Time PHQ-2 Depression Total Score: 0 09/05/20 2:41 PM EST documented as of this encounter Care Teams Transit Planning Manager Relationship Specialty Start Date End Date Ailyn Lynne PA-C [address] [place] [address] [email or web address] PCP - General Physician Librarian School 09/27/24 documented as of this encounter Additional Source Comments The information contained in this document represents components of the legal health record. It is not the complete legal health record.[facility]
--- OUTSIDE RECORDS SUMMARY | 2025-07-26 07:40 | XMS_ITS | Encounter Summary ---
Author Organization [facility] Address [address] [place] [address] [place] [address] Phone Care Team Providers Care Thermograph Operator Name Role Phone Ailyn Lynne PA-C Primary Care Provider [phone] Reason for Referral * Outpatient Procedure - Closed Specialty Diagnoses / Procedures Referred By Kira muhammad Referred To Contact Radiology Diagnoses Breast asymmetry Procedures Mammogram Stereotactic Breast Core Biopsy (Right) Ailyn Lynne PA-C [address] [place], [place] Phone: tel: fax: [email or web address] Referral ID Status Reason Start Date Expiration Date Visits Re quested Visits Authorized [id number] Closed 07/20/2025 1 1 Reason for Visit * Reason Onset Date Comments Request For Order(s) 07/19/2025 Encounter Details Date Type Department Care Team (Late st Contact Info) Description 07/19/2025 Telephone [facility] Internal Medicine [address] [place] [address] Ailyn yLnne PA-C [address] [place], [place] [email or web address] Request For Order(s) Social History Tobacco Use Types Packs/Day Years [...] high school, GED, job training, learning the Azeri language, technical skills, or developing parenting skills)? [...] on file documented as of this encounter Progress Notes * Lela George RN - 07/21/2025 4:48 PM EDT Images from the original note were not included. Ailyn Lynne PA-C P g Rakan Almaraz Rn As discussed in a telephone encounter on 07/19/2025, abnormal findings in the right breast with asymmetry requiring biopsy. However on the left breast there was a solid nodule at the 6 o'clock position, likely benign. Recommend repeat ultrasound in 6 months to reassess, ordered, patient most likely going to get it through [facility] so an external order has been placed. * Lyudmila Roldan - 07/20/2025 9:40 AM EDT Faxed to [facility]. Received fax confirmation of receipt. * Lyudmila Roldan - 07/20/2025 7:50 AM EDT No order placed, please advise * Millicent Kirby RN - 07/19/2025 4:26 PM EDT See orders * Ailyn Lynne PA-C - 07/19/2025 12:56 PM EDT No worries, once I receive that info I can place the order. * Millicent Kirby RN - 07/19/2025 12:54 PM EDT Spoke to Eloise at [facility]. She will fax the reports to the call center receptionist fax now. * Ailyn Lynne PA-C - 07/19/2025 12:51 PM EDT Right, that is from the screening mammogram. She had the diagnostic mammogram and US today and now they are calling for an order for a biopsy. Need to know what they found on the diagnostic imaging in order to order the biopsy. * Millicent Kirby RN - 07/19/2025 12:25 PM EDT Images from the original note were not included. * Ailyn Lynne PA-C - 07/19/2025 12:03 PM EDT Need more specific info in order to place the order (ie. What was found, if there are multiple sites, ect) * Darron Oneil - 07/19/2025 10:04 AM EDT Eloise from [facility] called. She needs an order for RT Breast Stereo Biopsy placed. Please advise on order. Any questions please call Eloise at [facility] at [phone] and fax order to [phone]. documented in this encounter Plan of Treatment Upcoming Encounters Date Type Department Care Team (Late st Contact Info) Description 09/12/2025 11:20 AM EST Office Visit [facility] Internal Medicine [address] [place] [address] Ailyn Lynne PA-C [address] [place] [address] [email or web address] Scheduled Orders Name Type Priority Associated Diagnoses Orde r Schedule Mammogram Stereotactic Breast Core Biopsy (Right) Imaging Routine Breast asymmetry Expected: 07/20/2025, Expires: 10/20/2025 documented as of this encounter Visit Diagnoses Diagnosis Breast asymmetry- Primary documented in this encounter Additional Health Concerns Assessment Noted Time PHQ-2 Depression Total Score: 0 09/05/20 2:41 PM EST documented as of this encounter Care Teams Thermograph Operator Relationship Specialty Start Date End Date Ailyn Lynne PA-C [address] [place] [address] PCP - General Physician Machine Try Out Setter 09/27/24 documented as of this encounter Additional Source Comments The information contained in this document represents components of the legal health record. It is not the complete legal health record.[facility]
--- OUTSIDE RECORDS SUMMARY | 2025-07-26 07:40 | XMS_ITS | Encounter Summary ---
Author Organization [facility] Address [address] [facility] [address] [place] [address] Phone Care Team Providers Care Compliance Administrator Name Role Phone Pcp, Unknown Primary Care Provider Ailyn Mike PA-C Primary Care Provider [phone] Encounter Details Date Type Department Care Team (Late st Contact Info) Description 09/05/2024 Procedure Pass [facility] [address] [place] [address] Social History Tobacco Use Types Packs/Day Years Used Date Smoking Tobacco: Every Day Cigarettes Passive Smoke Exposure: Never Smokeless Tobacco: Never [...] high school, GED, job training, learning the Slovak language, technical skills, or developing parenting skills)? [...] EST Office Visit [facility] [address] [place] [address] Ailyn Lynne PA-C [address] [place] [address] [email or web address] documented as of this encounter Visit Diagnoses Not on filedocumented in this encounter Additional Health Concerns Assessment Noted Time PHQ-2 Depression Total Score: 0 09/05/20 24 2:41 PM EST documented as of this encounter Care Teams Compliance Administrator Relationship Specialty Start Date End Date Pcp, Unknown PCP - General 07/09/20 09/26/24 Ailyn Lynne PA-C [address] [place] [address] [email or web address] PCP - General Physician Visitor Services Coordinator 09/27/24 documented as of this encounter Additional Source Comments The information contained in this document represents components of the legal health record. It is not the complete legal health record.[facility]
--- OUTSIDE RECORDS SUMMARY | 2025-07-26 07:40 | XMS_ITS | Patient Health Record ---
Author Organization [facility] Address [address] [facility] [place] [address] Care Team Providers Care Deputy Program Manager Name Role Phone Xander Chappell MD Primary Care Provider Porter Hyatt Unavailable [phone] Allergies Allergen (clinical drug ingredient) Drug/Non Drug [...] Status Risk Notes Problem Pain in limb (50338816) Pain in Limb (729.5) Active confirmed Problem Stress fracture (46411584) Stress fx (733.94) Active confirmed Plan Of Treatment Pending Test Test Name Order Date 51255-Qzge Destruction, 11-0101/01/201275704-Rkuw Destruction, 11-0111/20/2011 65871-Iedd Destruction, 11-0103/06/2014 49530-Nrop Destruction, 11-0104/05/2014 Medical (General) History Medical History History ICD Code raynauds syndrome macular degeneration meningioma cancer multiple sclerosis Osteopenia Surgical History Surgery Date(Month/Year) breast surgery ear surgery tonsillectomy
--- OUTSIDE RECORDS SUMMARY | 2025-07-26 07:40 | XMS_ITS | Clinical Summary ---
Author Organization [facility] ity Address [address] [place] [address] Care Team Providers Care Tool Grinding Technician Name Role Phone Unavailable Primary Care Provider [...]
--- OUTSIDE RECORDS SUMMARY | 2025-07-26 07:40 | XMS_ITS | Encounter Summary ---
Author Organization [facility] Address [address] [facility] [address] [place] [address] Phone Care Team Providers Care Coil Winder Strap Name Role Phone Pcp, Unknown Primary Care Provider Ailyn Mike PA-C Primary Care Provider [phone] Encounter Details Date Type Department Care Team (Late st Contact Info) Description 09/05/2024 Procedure Pass [facility], Ct Scan - [address] [address] Social History Tobacco Use Types Packs/Day Years [...] high school, GED, job training, learning the Norwegian language, technical skills, or developing parenting skills)? [...] EST Office Visit [facility] [address] [place] [address] Ailyn Lynne PA-C [address] [place] [address] [email or web address] documented as of this encounter Visit Diagnoses Not on filedocumented in this encounter Additional Health Concerns Assessment Noted Time PHQ-2 Depression Total Score: 0 09/05/20 2:41 PM EST documented as of this encounter Care Teams Coil Winder Strap Relationship Specialty Start Date End Date Pcp, Unknown PCP - General 07/09/20 09/26/24 Ailyn Lynne PA-C [address] [place] [address] [email or web address] PCP - General Physician Bus Cleaner 09/27/24 documented as of this encounter Additional Source Comments The information contained in this document represents components of the legal health record. It is not the complete legal health record.[facility]
--- OUTSIDE RECORDS SUMMARY | 2025-07-26 07:40 | XMS_ITS | Encounter Summary ---
Author Organization [facility] Address [address] [facility] [address] [place] [address] Phone Care Team Providers Care Advanced Manager Name Role Phone Ailyn Lynne PA-C Primary Care Provider Encounter Details Date Type Department Care Team (Late st Contact Info) Description 07/10/2025 Orders Only [facility] Internal Medicine [address] [place] [address] Provider, MD Paul [address] [place], [place] [id number] Social History Tobacco Use Types Packs/Day Years [...] high school, GED, job training, learning the Colombian language, technical skills, or developing parenting skills)? [...] EST Office Visit [facility] Medicine [address] [place] [address] Ailyn Lynne PA-C [address] [place] [address] [email or web address] documented as of this encounter Procedures Procedure Name Priority Date/Time Associated Diagnosis Comments MAMMOGRAPHY Routine 07/06/2025 4:13 PM EDT documented in this encounter Results * MAMMOGRAPHY FOR RESULT ENTRY ONLY (07/06/2025 4:13 PM EDT) us Historical Provider HEALTH MAINTENANCE Final Result documented in this encounter Visit Diagnoses Not on filedocumented in this encounter Additional Health Concerns Assessment Noted Time PHQ-2 Depression Total Score: 0 09/05/20 24 2:41 PM EST documented as of this encounter Care Teams Advanced Manager Relationship Specialty Start Date End Date Ailyn Lynne PA-C [address] [place] [address] [email or web address] PCP - General Physician Mental Health Practitioner 09/27/24 documented as of this encounter Additional Source Comments The information contained in this document represents components of the legal health record. It is not the complete legal health record.[facility]
--- OUTSIDE RECORDS SUMMARY | 2025-07-26 07:41 | XMS_ITS | Encounter Summary ---
Author Organization [facility] Address [address] [facility] [address] [place] [address] Phone Care Team Providers Care Steel Chipper Name Role Phone Ailyn Lynne PA-C Primary Care Provider Encounter Details Date Type Department Care Team (Late st Contact Info) Description 11/01/2024 Procedure Pass [facility], Ct Scan - [address] [address] Social History Tobacco Use Types Packs/Day Years [...] high school, GED, job training, learning the [place] language, technical skills, or developing parenting skills)? [...] EST Office Visit [facility] [address] [place] [address] Ailyn Lynne PA-C [address] [place] [address] [email or web address] documented as of this encounter Visit Diagnoses Not on filedocumented in this encounter Additional Health Concerns Assessment Noted Time PHQ-2 Depression Total Score: 0 09/05/20 2:41 PM EST documented as of this encounter Care Teams Steel Chipper Relationship Specialty Start Date End Date Ailyn Lynne PA-C [address] [place] [address] [email or web address] PCP - General Physician Touring Production Manager 09/27/24 documented as of this encounter Additional Source Comments The information contained in this document represents components of the legal health record. It is not the complete legal health record.[facility]
--- OUTSIDE RECORDS SUMMARY | 2025-07-26 07:41 | XMS_ITS | Encounter Summary ---
Author Organization [facility] Address [address] [place] [address] [place] [address] Phone Care Team Providers Care Business Info Consultant Name Role Phone Ailyn Lynne PA-C Primary Care Provider [phone] Encounter Details Date Type Department Care Team (Late st Contact Info) Description 02/03/2025 Telephone [facility] Internal Medicine [address] [place], [place] [phone] Ailyn Lynne PA-C [address] [place] [address] [email or web address] Social History Tobacco Use Types Packs/Day Years [...] high school, GED, job training, learning the Vincentian language, technical skills, or developing parenting skills)? [...] 11:20 AM EST Office Visit [facility] Internal Medicine [address] [place] [address] Ailyn Lynne PA-C [address] [place] [address] .[employer] documented as of this encounter Visit Diagnoses Not on filedocumented in this encounter Additional Health Concerns Assessment Noted Time PHQ-2 Depression Total Score: 0 09/05/20 24 2:41 PM EST documented as of this encounter Care Teams Business Info Consultant Relationship Specialty Start Date End Date Ailyn Lynne PA-C [address] [place] [address] .[employer] PCP - General Physician Litigation Partner 09/27/24 documented as of this encounter Additional Source Comments The information contained in this document represents components of the legal health record. It is not the complete legal health record.[facility]
--- OUTSIDE RECORDS SUMMARY | 2025-07-26 07:41 | XMS_ITS | Encounter Summary ---
Author Organization [facility] Address [address] [address] Phone Care Team Providers Care Coding Quality Analyst Name Role Phone Ailyn Lynne PA-C Primary Care Provider [phone] Encounter Details Date Type Department Care Team (Late st Contact Info) Description 07/21/2025 Orders Only [facility] [address] [place], [place] [phone] Ailyn Lynne PA-C [address] [place] [address] [email or web address] Mass of left breast, unspecified quadrant (Primary Dx) Social History Tobacco Use Types Packs/Day Years [...] high school, GED, job training, learning the Nigerien language, technical skills, or developing parenting skills)? [...] Description 09/12/2025 11:20 AM EST Office Visit [facility] Internal Medicine [address] [place] [address] Ailyn Lynne PA-C [address] [place] [address] [email or web address] documented as of this encounter Procedures Procedure Name Priority Date/Time Associated Diagnosis Comments BI US BREAST (LEFT) Routine 07/21/2025 3:47 PM ED T Mass of left breast, unspecified quadrant documented in this encounter Visit Diagnoses Diagnosis Mass of left breast, unspecified quadrant- Primary documented in this encounter Additional Health Concerns Assessment Noted Time PHQ-2 Depression Total Score: 0 09/05/20 2:41 PM EST documented as of this encounter Care Teams Coding Quality Analyst Relationship Specialty Start Date End Date Ailyn Lynne PA-C [address] [place] [address] [email or web address] PCP - General Physician Precision Farming Coordinator 09/27/24 documented as of this encounter Additional Source Comments The information contained in this document represents components of the legal health record. It is not the complete legal health record.[facility]
--- OUTSIDE RECORDS SUMMARY | 2025-07-26 07:41 | XMS_ITS | Encounter Summary ---
Author Organization [facility] Address [address] [facility] [address] [place] [address] Phone Care Team Providers Care Surgical Services Director Name Role Phone Ailyn Lynne PA-C Primary Care Provider [phone] Encounter Details Date Type Department Care Team (Late st Contact Info) Description 10/04/2024 Procedure Pass [facility], [address] [address] Social History Tobacco Use Types Packs/Day Years [...] high school, GED, job training, learning the Haitian language, technical skills, or developing parenting skills)? [...] EST Office Visit [facility] [address] [place] [address] Ailyn Lynne PA-C [address] [place] [address] [email or web address] documented as of this encounter Visit Diagnoses Not on filedocumented in this encounter Additional Health Concerns Assessment Noted Time PHQ-2 Depression Total Score: 0 09/05/20 2:41 PM EST documented as of this encounter Care Teams Surgical Services Director Relationship Specialty Start Date End Date Ailyn Lynne PA-C [address] [place] [phone] [email or web address] PCP - General Physician Lead Manufacturing Engineering Tech 09/27/24 documented as of this encounter Additional Source Comments The information contained in this document represents components of the legal health record. It is not the complete legal health record.[facility]
--- OUTSIDE RECORDS SUMMARY | 2025-07-26 07:41 | XMS_ITS | Encounter Summary ---
Author Organization [facility] Address [address] [facility] [address] [place] [address] Phone Care Team Providers Care Fixture Maker Name Role Phone Ailyn Lynne PA-C Primary Care Provider Encounter Details Date Type Department Care Team (Late st Contact Info) Description 10/04/2024 Procedure Pass [facility], [address] [address] Social History Tobacco Use Types Packs/Day Years [...] high school, GED, job training, learning the Micronesian language, technical skills, or developing parenting skills)? [...] EST Office Visit [facility] [address] [place] [address] Ailyn Lynne PA-C [address] [place] [address] [email or web address] documented as of this encounter Visit Diagnoses Not on filedocumented in this encounter Additional Health Concerns Assessment Noted Time PHQ-2 Depression Total Score: 0 09/05/20 2:41 PM EST documented as of this encounter Care Teams Fixture Maker Relationship Specialty Start Date End Date Ailyn Lynne PA-C [address] [place] [phone] [email or web address] PCP - General Physician Regulatory Consultant 09/27/24 documented as of this encounter Additional Source Comments The information contained in this document represents components of the legal health record. It is not the complete legal health record.[facility]
--- OUTSIDE RECORDS SUMMARY | 2025-07-26 07:41 | XMS_ITS | Encounter Summary ---
Author Organization [facility] Address [address] [facility] [address] [place] [address] Phone Care Team Providers Care Information Systems Auditor Name Role Phone Ailyn Lynne PA-C Primary Care Provider Encounter Details Date Type Department Care Team (Late st Contact Info) Description 07/19/2025 Orders Only [facility] Internal Medicine [address] [place] [address] Provider, MD Paul [address] [place], [place] [id number] Social History Tobacco Use Types Packs/Day Years [...] high school, GED, job training, learning the Tongan language, technical skills, or developing parenting skills)? [...] EST Office Visit [facility] [address] [place] [address] Ailyn Lynne PA-C [address] [place] [address] [email or web address] documented as of this encounter Procedures Procedure Name Priority Date/Time Associated Diagnosis Comments MAMMOGRAPHY Routine 07/19/2025 3:34 PM EDT OUTSIDE IMAGING Routine 07/19/2025 3:33 PM EDT documented in this encounter Results * MAMMOGRAPHY FOR RESULT ENTRY ONLY (07/19/2025 3:34 PM EDT) Historical Provider HEALTH MAINTENANCE Final Result * Outside Imaging Report Only (07/19/2025 3:33 PM EDT) Historical Provider IMG XR CHEST Final Res ult documented in this encounter Visit Diagnoses Not on filedocumented in this encounter Additional Health Concerns Assessment Noted Time PHQ-2 Depression Total Score: 0 09/05/20 24 2:41 PM EST documented as of this encounter Care Teams Information Systems Auditor Relationship Specialty Start Date End Date Ailyn Lynne PA-C [address] [place] [address] [email or web address] PCP - General Physician Electric Distribution Engineer 09/27/24 documented as of this encounter Additional Source Comments The information contained in this document represents components of the legal health record. It is not the complete legal health record.[facility]
--- OUTSIDE RECORDS SUMMARY | 2025-07-26 07:41 | XMS_ITS | Encounter Summary ---
Author Organization [facility] Address [address] [facility] [address] [place] [address] Phone Care Team Providers Care Life Skills Coordinator Volunteer Name Role Phone Ailyn Lynne PA-C Primary Care Provider Encounter Details Date Type Department Care Team (Late st Contact Info) Description 07/21/2025 Orders Only [facility] Medicine [address] [place] [address] Provider, MD Paul [address] [place], [place] [phone] Social History Tobacco Use Types Packs/Day Years [...] high school, GED, job training, learning the Telugu language, technical skills, or developing parenting skills)? [...] EST Office Visit [facility] [address] [place] [address] Ailyn Lynne PA-C [address] [place] [address] documented as of this encounter Procedures Procedure Name Priority Date/Time Associated Diagnosis Comments OUTSIDE US BREAST REPORT ONLY Routine 07/19/2025 3:32 PM EDT documented in this encounter Results * Outside US Breast Report Only (07/19/2025 3:32 PM EDT) us Historical Provider MD DENSON US BREAST Final Res ult documented in this encounter Visit Diagnoses Not on filedocumented in this encounter Additional Health Concerns Assessment Noted Time PHQ-2 Depression Total Score: 0 09/05/20 24 2:41 PM EST documented as of this encounter Care Teams Life Skills Coordinator Volunteer Relationship Specialty Start Date End Date Ailyn Lynne PA-C [address] [place] [address] [email or web address] PCP - General Physician Agricultural Extension Educator 09/27/24 documented as of this encounter Additional Source Comments The information contained in this document represents components of the legal health record. It is not the complete legal health record.[facility]
--- OUTSIDE RECORDS SUMMARY | 2025-07-26 07:41 | XMS_ITS | Encounter Summary ---
Author Organization [facility] Address [address] [facility] [address] [place] [address] Phone Care Team Providers Care Fisher Net Name Role Phone Ailyn Lynne PA-C Primary Care Provider Encounter Details Date Type Department Care Team (Late st Contact Info) Description 11/01/2024 Procedure Pass [facility], Ct Scan - [address] [address] Social History Tobacco Use Types Packs/Day Years [...] high school, GED, job training, learning the Portuguese language, technical skills, or developing parenting skills)? [...] EST Office Visit [facility] [place] [facility] [address] [place] [address] Ailyn Lynne PA-C 40 [place] [address] [email or web address] documented as of this encounter Visit Diagnoses Not on filedocumented in this encounter Additional Health Concerns Assessment Noted Time PHQ-2 Depression Total Score: 0 09/05/20 2:41 PM EST documented as of this encounter Care Teams Fisher Net Relationship Specialty Start Date End Date Ailyn Lynne PA-C 40 [place] [address] [email or web address] PCP - General Physician Refractory Technician 09/27/24 documented as of this encounter Additional Source Comments The information contained in this document represents components of the legal health record. It is not the complete legal health record.[facility]
[2025-07-26] MEDS: Lidocaine HCl 1 % 20 ML VIAL 4 ML SUBCUT (10:43)
[2025-07-26] MEDS: Lidocaine HCl 1%/Epi 1:100,000 10 ML VIAL 13 ML SUBCUT (10:45)
== END 2025-07-26 07:37 | disposition home or self-care (01) ==
LOC: HO.MAMMO 07:36
DX: N63.10 Unspecified lump in the right breast, unspecified quadrant (principal); N64.89 Other specified disorders of breast; R92.1 Mammographic calcification found on diagnostic imaging of breast
CPT/HCPCS: 19081; 88305; A4648; J2003; J2004

== ENCOUNTER → 2025-07-26 08:00 | Outpatient (BNV) | payer MEDICARE, SELFPAY | PROVIDERS: Visit Provider Internal Medicine | DX: R92.8 Other abnormal and inconclusive findings on diagnostic imaging of breast (principal) | CPT/HCPCS: 19081 ==

== ENCOUNTER 2025-08-11 08:20 | Outpatient (AMB) | payer MEDICARE, SELFPAY ==
--- NOTE | 2025-08-11 08:22 | A.OFFVIS_ITS ---
Vital Signs 3 08/11/25 08:29 Height 5 ft 5 in Weight 163 lb BMI 27.1 BP 180/72 H Blood Pressure Location Rt brachial Position Sitting Pulse 87 Intake Visit Reasons: breast mass Intake Note: Patient is seen in office for breast lump. Pt c/o: no concerns. Reports bx site healing well. us B: 07/19/25 mm: 07/26/25 Automotive Vehicle Inspector Required: No Accompanied by: Friend Allergies corticotropin (From [facility]HAR H.P.) Allergy (Severe, Verified 08/11/25 08:29) SWELLING levofloxacin (From LEVAQUIN) Allergy (Severe, Verified 08/11/25 08:29) ANGIOEDEMA teriflunomide (From AUBAGIO) Allergy (Severe, Verified 08/11/25 08:29) SOB/HTN albumin human (From REBIF (WITH ALBUMIN)) Allergy (Intermediate, Verified 08/11/25 08:29) ARM INFECTION interferon beta-1a (From REBIF (WITH ALBUMIN)) Allergy (Intermediate, Verified 08/11/25 08:29) ARM INFECTION sulfamethoxazole (From BACTRIM) Allergy (Mild, Verified 08/11/25 08:29) RASH trimethoprim (From BACTRIM) Allergy (Mild, Verified 08/11/25 08:29) RASH fingolimod (From GILENYA) Allergy (Unknown, Verified 08/11/25 08:29) UNKNOWN REACTION glatiramer (copolymer 1) (Copaxone) Allergy (Unknown, Verified 08/11/25 08:29) damage skin 1st Choice Lancets Super Thin Allergy (Unknown, Uncoded 08/11/25 08:29) Unknown adhesives Allergy (Unknown, Uncoded 08/11/25 08:29) rash Medication List - Last Reconciled 08/11/25 by Jorge Luis Cai MD atorvastatin (Lipitor) 20 mg PO BEDTIME dimethyl fumarate (Tecfidera) 240 mg PO BID lisinopril 15 mg PO DAILY omeprazole 40 mg PO DAILY HPI Comments Details: 64-year-old female patient with a strong family history of breast cancer presenting following a right breast stereotactic guided core biopsy performed on 07/26/2025. Pathology revealed breast tissue with fibrocystic change, apocrine metaplasia, usual ductal hyperplasia, sclerosing adenosis and small radial scar formation; occasional calcifications present; no atypia or malignancy identified. This was felt to be high risk for malignancy therefore wider excision was recommended. She reports a previous biopsy of the left breast performed by Dr. Resendiz which was benign.. She also has a previous history of skin melanoma of the right chest excised by Dr. Salcedo. Her family history is significant for a sister with breast cancer diagnosed at the age of 30 with a recurrence at the age of 51. She also had an aunt diagnosed with breast cancer at the age of 70. She reports bilateral breast pain but denies any other palpable mass or significant changes. She continues to be treated for mass as well. [facility] Medical History Atherosclerotic cardiovascular disease Essential hypertension Hordeolum externum left lower eyelid Tobacco use disorder Multiple sclerosis Hypercholesterolemia Conjunctivitis Blepharitis of eyelid of right eye Surgical History History of breast biopsy History of ear surgery History of tonsillectomy Family History Mother No problems noted. Father No problems noted. Sister Breast cancer, Onset Age: 30 Maternal Aunt Breast cancer Social History Housing: House Alcohol intake: never Patient Tobacco Use Status: Current everyday Tobacco user Tobacco use type: Cigarette Cigarette Packs Per Day: 1 Cigarettes Per Day: 20 e-Cigarette/Vaping Use: Never Used Second Hand Smoke Exposure: Yes service: No Current occupational status: disabled Cognitive needs: Yes (cane) Hearing needs: No Vision needs: Yes (Glasses) Review of Systems Const All systems reviewed & are unremarkable except as noted in HPI and below Reports body aches, Denies chills, Denies night sweats and Reports weakness ENT Reports Normal hearing present Card Denies chest pain, Denies rapid heart rate and Denies irregular heart rhythm Resp Denies chest congestion, Denies cough and Denies hemoptysis GI Denies abdominal pain, Denies constipation and Denies diarrhea Denies nipple discharge Skin/Breast Denies breast swelling, Denies breast skin changes, Reports breast pain, Reports breast mass, Denies change in breast shape and Denies nipple discharge Neuro Reports Normal hearing present and Reports weakness Kodi/Lymph Denies lymphadenopathy Physical Exam Vital Signs: Last Vital Signs Pulse 87 08/11/25 08:29 BP 180/72 H 08/11/25 08:29 BMI result Body Mass Index 27.1 Const General: comfortable and well developed Nutritional Appearance: well nourished Orientation/consciousness: patient oriented x3 Limitations: no limitations HEENT Head: Yes normocephalic and Yes atraumatic Ears: hearing grossly normal bilaterally Neck Neck: Yes no lymphadenopathy, Yes trachea midline and Yes supple Chest Other: Left breast: No skin change, no nipple retraction, no nipple discharge, no palpable mass, no enlarged lymph nodes. There is tenderness in the central portion of the breast with no palpable mass appreciated. Right breast: Biopsy site located in the upper outer quadrant adjacent to the nipple-areolar complex with tenderness to palpation below the nipple. Post biopsy inflammatory changes are noted however no other significant skin change, nipple discharge, palpable mass, or enlarged lymph nodes are appreciated. Chest/axillae images: 2 1. Biopsy site upper outer quadrant right breast 2. Melanoma excision site Resp Effort & Inspection: normal respiratory effort, no audible wheezes and no cough Auscultation: no wheezes Neuro General: patient oriented x3 Cranial nerves: Yes Normal hearing present Extrem General: Yes no clubbing, cyanosis or edema Assessment & Plan Assessment & Plan (1) Radial scar of right breast: Code(s): N64.89 - Other specified disorders of breast Category: Medical Plan 64-year-old female patient presenting with a recently biopsied architectural distortion in the right breast upper outer quadrant noted on screening mammogram. Subsequent stereotactic guided core biopsy performed on 07/26/2025 revealed a radial scar felt to be high risk for malignancy. Wider excision was recommended to assure complete removal. On examination there are inflammatory changes from her previous stereotactic biopsy but no other suspicious findings. We discussed right breast lumpectomy with localizer procedure, risks and alternatives and she consents to the surgery. She will be scheduled as a short- stay surgery at her earliest convenience. Coding Level of Care Code New Pt Level 4 (17953) Diagnoses Radial scar of right breast N64.89
[2025-08-11 08:29] VITALS: BP 180/72; PULSE 87; BMI 27.1
== END 2025-08-11 08:44 | disposition home or self-care (01) ==
LOC: HO.HGS 08:21
PROVIDERS: Visit Provider Surgery
DX: N64.89 Other specified disorders of breast (principal)
CPT/HCPCS: 99204

== ENCOUNTER → 2025-08-11 08:20 | Outpatient (BNVA) | payer MEDICARE, SELFPAY | PROVIDERS: Visit Provider Surgery | DX: N64.89 Other specified disorders of breast (principal); Z72.0 Tobacco use; Z80.3 Family history of malignant neoplasm of breast | CPT/HCPCS: 99202 ==

== ENCOUNTER 2025-08-17 08:36 | Outpatient (REF) | payer MEDICARE, SELFPAY ==
--- NOTE | ~2025-08-17 | MM_ITS ---
EXAMINATION: MM MAMMOGRAM GUIDED RFID LOCALIZATION BREAST, RIGHT CLINICAL INFORMATION: Right breast radial scar here for tag localization for excisional biopsy. COMPARISON: Priors on PACS. TECHNIQUE NEEDLE LOC: Proper informed consent is obtained from the patient after discussion of the procedure, potential risks and complications, and alternatives including declining the procedure today. Patient was given an opportunity for questions. The patient understood. The patient consented to the procedure and signed the consent form. GUIDANCE: Digital mammography. APPROACH: Superior. TARGET: Top hat clip. ANESTHESIA: lidocaine 1%: 8 mL. LOCALIZATION SYSTEM: -[employer] LOCallizer Wire-Free Guidance System with 12g needle applicator. -Length: 5 cm. -RADIOFREQUENCY TAG: ID # [id number] RF Tag ID confirmed with LOCalizer Guidance System prior to placement. The skin is prepped and local anesthesia administered. The needle is positioned and RFID tag deployed. Final images demonstrate the LOCalizer RF tag to reside adjacent to the marker clip. The patient tolerated the procedure well and had no immediate complications. Dressing placed and home instructions reviewed. MM/MM RF Tag device RT IMPRESSION: -Status post right breast RFID localization. Electronically signed by: Roula Thibodeaux DO 08/17/2025 10:48 AM EDT
[2025-08-17] MEDS: Lidocaine HCl 1 % 20 ML VIAL 8 ML SUBCUT (09:49)
== END 2025-08-17 08:37 | disposition home or self-care (01) ==
LOC: HO.MAMMO 08:36
PROVIDERS: Visit Provider Surgery
DX: N64.89 Other specified disorders of breast (principal)
CPT/HCPCS: 19281; C1819; J2003

== ENCOUNTER → 2025-08-17 09:00 | Outpatient (BNV) | payer MEDICARE, SELFPAY | PROVIDERS: Visit Provider Internal Medicine | DX: N64.89 Other specified disorders of breast (principal) | CPT/HCPCS: 19281 ==

== ENCOUNTER 2025-09-13 06:53 | Day surgery (SDC) | payer MEDICARE, SELFPAY ==
--- OUTSIDE RECORDS SUMMARY | 2025-08-15 08:54 | XMS_ITS | Encounter Summary ---
Author Organization [facility] Address [address] [facility] [address] [place] [address] Phone Care Team Providers Care Counseling Director Name Role Phone Ailyn Lynne PA-C Primary Care Provider Encounter Details Date Type Department Care Team (Late st Contact Info) Description 08/04/2025 Orders Only [facility] Internal Medicine [address] [place] [address] Provider, MD Paul [address] [place], [place] [id number] Social History Tobacco Use Types Packs/Day Years [...] high school, GED, job training, learning the Uruguayan language, technical skills, or developing parenting skills)? [...] EST Office Visit [facility] [place] [facility] [address] [place] [address] Ailyn Lynne PA-C 40 [place] [address] [email or web address] documented as of this encounter Procedures Procedure Name Priority Date/Time Associated Diagnosis Comments MAMMOGRAPHY Routine 07/26/2025 1:25 PM EDT documented in this encounter Results * MAMMOGRAPHY FOR RESULT ENTRY ONLY (07/26/2025 1:25 PM EDT) us Historical Provider HEALTH MAINTENANCE Final Result documented in this encounter Visit Diagnoses Not on filedocumented in this encounter Additional Health Concerns Assessment Noted Time PHQ-2 Depression Total Score: 0 09/05/20 2:41 PM EST documented as of this encounter Care Teams Counseling Director Relationship Specialty Start Date End Date Ailyn Lynne PA-C [address] [place] [address] [email or web address] PCP - General Physician Director Sales Training 09/27/24 documented as of this encounter Additional Source Comments The information contained in this document represents components of the legal health record. It is not the complete legal health record.[facility]
--- OUTSIDE RECORDS SUMMARY | 2025-08-15 08:55 | XMS_ITS | Patient Health Record ---
Author Organization [facility] Address [address] [facility] [place] [address] Care Team Providers Care Slasher Tender Helper Name Role Phone Xander Chappell MD Primary Care Provider Porter Hyatt Unavailable [phone] Allergies Allergen (clinical drug ingredient) Drug/Non Drug [...] Status Risk Notes Problem Pain in limb (51002727) Pain in Limb (729.5) Active confirmed Problem Stress fracture (03151640) Stress fx (733.94) Active confirmed Plan Of Treatment Pending Test Test Name Order Date [id number] Destruction, 11-0101/01/201215888-Buti Destruction, 11-0111/20/2011 [id number] Destruction, 11-0103/06/2014 [id number]-Pevu Destruction, 11-0104/05/2014 Medical (General) History Medical History History ICD Code raynauds syndrome macular degeneration meningioma cancer multiple sclerosis Osteopenia Surgical History Surgery Date(Month/Year) breast surgery ear surgery tonsillectomy
--- OUTSIDE RECORDS SUMMARY | 2025-08-15 08:55 | XMS_ITS | Encounter Summary ---
Author Organization [facility] Address [address] [facility] [address] [place] [address] Phone Care Team Providers Care Emergency Department Aide Name Role Phone Ailyn Lynne PA-C Primary Care Provider Encounter Details Date Type Department Care Team (Late st Contact Info) Description 11/01/2024 Procedure Pass [facility], Ct Scan - [address] [address] Social History Tobacco Use Types Packs/Day Years [...] high school, GED, job training, learning the Niuean language, technical skills, or developing parenting skills)? [...] EST Office Visit [facility] [place] [facility] 40 [place] [address] Ailyn Lynne PA-C 40 [place] [address] [email or web address] documented as of this encounter Visit Diagnoses Not on filedocumented in this encounter Additional Health Concerns Assessment Noted Time PHQ-2 Depression Total Score: 0 09/05/20 2:41 PM EST documented as of this encounter Care Teams Emergency Department Aide Relationship Specialty Start Date End Date Ailyn Lynne PA-C 40 [place] [address] [email or web address] PCP - General Physician Ent Surgeon 09/27/24 documented as of this encounter Additional Source Comments The information contained in this document represents components of the legal health record. It is not the complete legal health record.[facility]
--- OUTSIDE RECORDS SUMMARY | 2025-08-15 08:55 | XMS_ITS | Encounter Summary ---
Author Organization [facility] Address [address] [facility] [address] [place] [address] Phone Care Team Providers Care Central Supply Manager Name Role Phone Ailyn Lynne PA-C Primary Care Provider Encounter Details Date Type Department Care Team (Late st Contact Info) Description 07/19/2025 Orders Only [facility] Internal Medicine [address] [place] [address] Provider, MD Paul [address] [place], [place] [phone] Social History Tobacco Use Types Packs/Day Years [...] high school, GED, job training, learning the Armenian language, technical skills, or developing parenting skills)? [...] EST Office Visit [facility] [place] [facility] [address] [place] [address] Ailyn Lynne PA-C 40 [place] [address] [email or web address] documented as of this encounter Procedures Procedure [...] documented as of this encounter Care Teams Central Supply Manager Relationship Specialty Start Date End Date Ailyn Lynne PA-C 40 [place] [address] [email or web address] PCP - General Physician Heater Helper 09/27/24 documented as of this encounter Additional Source Comments The information contained in this document represents components of the legal health record. It is not the complete legal health record.[facility]
--- OUTSIDE RECORDS SUMMARY | 2025-08-15 08:55 | XMS_ITS | Encounter Summary ---
Author Organization [facility] Address [address] [facility] [address] [place] [address] Phone Care Team Providers Care Customer Solutions Architect Name Role Phone Ailyn Lynne PA-C Primary Care Provider Encounter Details Date Type Department Care Team (Late st Contact Info) Description 12/06/2024 Procedure Pass [facility], Ct Scan - [address] [address] Social History Tobacco Use Types Packs/Day Years [...] EST Office Visit [facility] [place] [facility] 40 [place] [address] Ailyn Lynne PA-C 40 [place] [address] [email or web address] documented as of this encounter Visit Diagnoses Not on filedocumented in this encounter Additional Health Concerns Assessment Noted Time PHQ-2 Depression Total Score: 0 09/05/20 2:41 PM EST documented as of this encounter Care Teams Customer Solutions Architect Relationship Specialty Start Date End Date Ailyn Lynne PA-C 40 [place] [address] [email or web address] PCP - General Physician Senior Living Sales Counselor 09/27/24 documented as of this encounter Additional Source Comments The information contained in this document represents components of the legal health record. It is not the complete legal health record.[facility]
--- OUTSIDE RECORDS SUMMARY | 2025-08-15 08:55 | XMS_ITS | Encounter Summary ---
Author Organization [facility] Address [address] [facility] [address] [place] [address] Phone Care Team Providers Care Cabana Attendant Name Role Phone Pcp, Unknown Primary Care Provider Ailyn Mike PA-C Primary Care Provider [phone] Encounter Details Date Type Department Care Team (Late st Contact Info) Description 09/05/2024 Procedure Pass [facility] [address] [place] [address] Social History Tobacco Use Types Packs/Day Years [...] high school, GED, job training, learning the Czech language, technical skills, or developing parenting skills)? [...] EST Office Visit [facility] [place] [facility] 40 [place] [address] Ailyn Lynne PA-C 40 [place] [address] [email or web address] documented as of this encounter Visit Diagnoses Not on filedocumented in this encounter Additional Health Concerns Assessment Noted Time PHQ-2 Depression Total Score: 0 09/05/20 24 2:41 PM EST documented as of this encounter Care Teams Cabana Attendant Relationship Specialty Start Date End Date Pcp, Unknown PCP - General 07/09/20 09/26/24 Ailyn Lynne PA-C 40 [place] [address] [email or web address] PCP - General Physician Scarf Gluer 09/27/24 documented as of this encounter Additional Source Comments The information contained in this document represents components of the legal health record. It is not the complete legal health record.[facility]
--- OUTSIDE RECORDS SUMMARY | 2025-08-15 08:55 | XMS_ITS | Encounter Summary ---
Author Organization [facility] Address [address] [facility] [address] [place] [address] Phone Care Team Providers Care Theater Usher Name Role Phone Pcp, Unknown Primary Care Provider Ailyn Mike PA-C Primary Care Provider [phone] Encounter Details Date Type Department Care Team (Late st Contact Info) Description 09/05/2024 Procedure Pass [facility], Ct Scan - [address] [address] Social History Tobacco Use Types Packs/Day Years [...] EST Office Visit [facility] [place] [facility] [address] [place] [address] Ailyn Lynne PA-C 40 [place] [address] [email or web address] documented as of this encounter Visit Diagnoses Not on filedocumented in this encounter Additional Health Concerns Assessment Noted Time PHQ-2 Depression Total Score: 0 09/05/20 2:41 PM EST documented as of this encounter Care Teams Theater Usher Relationship Specialty Start Date End Date Pcp, Unknown PCP - General 07/09/20 09/26/24 Ailyn Lynne PA-C [address] [place] [address] [email or web address] PCP - General Physician Arabic Teacher 09/27/24 documented as of this encounter Additional Source Comments The information contained in this document represents components of the legal health record. It is not the complete legal health record.[facility]
--- OUTSIDE RECORDS SUMMARY | 2025-08-15 08:55 | XMS_ITS | Encounter Summary ---
Author Organization [facility] Address [address] [facility] [address] [place] [address] Phone Care Team Providers Care Ticket Agent Name Role Phone Ailyn Lynne PA-C Primary Care Provider [phone] Reason for Referral * Consultation (Within 3 days (urgent)) - Authorized Specialty Diagnoses / Procedures Referred By Contac t Referred To Contact Diagnoses Mass of right breast, unspecified quadrant Maegan Stone PA-C [address] [place] [address] Phone: tel: fax: [email or web address] Jorge Luis Cai MD [address] [place] [address] [place] [address] Phone: tel: fax: Referral ID Status Reason Start Date Expiration Date V isits Requested Visits Authorized [id number] Authorized 08/14/2025 08/14/2026 12 12 Scheduling Instructions Please call the office to be scheduled directly/ [facility] General Surgery P: [phone] F: [phone] [address] [facility] [address], [place] [address] Reason for Visit * Reason Onset Date Comments Referral request 08/14/2025 Encounter Details Date Type Department Care Team (Late st Contact Info) Description 08/14/2025 Telephone [facility] Internal Medicine [address] [facility] [place] [address] Ailyn Lynne PA-C [address] [place] [address] [email or web address] Referral request Social History Tobacco Use Types Packs/Day Years [...] high school, GED, job training, learning the French language, technical skills, or developing parenting skills)? [...] as of this encounter Progress Notes * Darron Oneil - 08/14/2025 9:31 AM EDT sent referral along with demographic sheet and office note with confirmation received. run insurance for insurance referral * Go Mcintosh - 08/14/2025 8:14 AM EDT Received request from [facility] General Surgery for referral to Dr. Jorge Luis Cai, , numberof visits 12 for right breast mass N63.11. Needs faxed back jarrell to [phone] Referral pended documented in this encounter Plan of Treatment Upcoming Encounters Date Type Department Care Team (Late st Contact Info) Description 09/12/2025 11:20 AM EST Office Visit [facility] [place] [facility] [address] [place] [address] Ailyn Lynne PA-C 40 [place], [place] Scheduled Referrals Name Type Priority Associated Diagnoses Orde r Schedule [facility] General Surgery Outpatient Referral Routine Mass of right breast, unspecified quadrant Ordered: 08/14/2025 documented as of this encounter Visit Diagnoses Diagnosis Mass of right breast, unspecified quadrant- Primary documented in this encounter Additional Health Concerns Assessment Noted Time PHQ-2 Depression Total Score: 0 09/05/20 24 2:41 PM EST documented as of this encounter Care Teams Ticket Agent Relationship Specialty Start Date End Date Ailyn Lynne PA-C [address] [place] [address] PCP - General Physician Natural Resources Manager 09/27/24 documented as of this encounter Additional Source Comments The information contained in this document represents components of the legal health record. It is not the complete legal health record.[facility]
--- OUTSIDE RECORDS SUMMARY | 2025-08-15 08:55 | XMS_ITS | Encounter Summary ---
Author Organization [facility] Address [address] [facility] [address] [place] [address] Phone Care Team Providers Care Physician Assistant Certified Name Role Phone Ailyn Lynne PA-C Primary Care Provider Encounter Details Date Type Department Care Team (Late st Contact Info) Description 11/01/2024 Procedure Pass [facility], Ct Scan - [address] [address] Social History Tobacco Use Types Packs/Day Years [...] high school, GED, job training, learning the Bulgarian language, technical skills, or developing parenting skills)? [...] EST Office Visit [facility] [place] [facility] [address] [place] [address] Ailyn Lynne PA-C 40 [place] [address] [email or web address] documented as of this encounter Visit Diagnoses Not on filedocumented in this encounter Additional Health Concerns Assessment Noted Time PHQ-2 Depression Total Score: 0 09/05/20 2:41 PM EST documented as of this encounter Care Teams Physician Assistant Certified Relationship Specialty Start Date End Date Ailyn Lynne PA-C [address] [place] [address] [email or web address] PCP - General Physician Mining Plant Operator 09/27/24 documented as of this encounter Additional Source Comments The information contained in this document represents components of the legal health record. It is not the complete legal health record.[facility]
--- OUTSIDE RECORDS SUMMARY | 2025-08-15 08:55 | XMS_ITS | Encounter Summary ---
Author Organization [facility] Address [address] [facility] [address] [place] [phone] Phone Care Team Providers Care Supervisor [employer] Name Role Phone Ailyn Lynne PA-C Primary Care Provider Encounter Details Date Type Department Care Team (Late st Contact Info) Description 07/10/2025 Orders Only [facility] Internal Medicine [address] [place] [address] Provider, MD Paul [address] [place], [place] [id number] Social History Tobacco Use Types Packs/Day Years [...] high school, GED, job training, learning the [place] Citizen language, technical skills, or developing parenting skills)? [...] EST Office Visit [facility] [place] [facility] [address] [place] [address] Ailyn Lynne PA-C 40 [place] [address] [email or web address] documented as of this encounter Procedures Procedure [...] documented as of this encounter Care Teams Supervisor [employer] Relationship Specialty Start Date End Date Ailyn Lynne PA-C [address] [place] [address] [email or web address] PCP - General Physician Custodial Aide 09/27/24 documented as of this encounter Additional Source Comments The information contained in this document represents components of the legal health record. It is not the complete legal health record.[facility]
--- OUTSIDE RECORDS SUMMARY | 2025-08-15 08:55 | XMS_ITS | Encounter Summary ---
Author Organization [facility] Address [address] [facility] [address] [place] [address] Phone Care Team Providers Care Crisis Clinician Name Role Phone Ailyn Lynne PA-C Primary Care Provider [phone] Encounter Details Date Type Department Care Team (Late st Contact Info) Description 08/02/2025 Orders Only [facility] Internal Medicine [address] [place] [address] Provider, MD Paul [address] [place], [place] [id number] Social History Tobacco Use Types Packs/Day Years [...] high school, GED, job training, learning the Polish language, technical skills, or developing parenting skills)? [...] [facility] [address] [place] [address] Ailyn Lynne PA-C [address] [place] [address] [email or web address] documented as of this encounter Procedures Procedure Name Priority Date/Time Associated Diagnosis Comments OUTSIDE PATHOLOGY Routine 08/02/2025 3:22 PM EDT documented in this encounter Results * Outside Pathology (08/02/2025 3:22 PM EDT) us Historical Provider PATHOLOGY ORDERABLES Ally l Result documented in this encounter Visit Diagnoses Not on filedocumented in this encounter Additional Health Concerns Assessment Noted Time PHQ-2 Depression Total Score: 0 09/05/20 2:41 PM EST documented as of this encounter Care Teams Crisis Clinician Relationship Specialty Start Date End Date Ailyn Lynne PA-C [address] [place] [address] [email or web address] PCP - General Physician Building Construction Ironworker 09/27/24 documented as of this encounter Additional Source Comments The information contained in this document represents components of the legal health record. It is not the complete legal health record.[facility]
--- OUTSIDE RECORDS SUMMARY | 2025-08-15 08:55 | XMS_ITS | Clinical Summary ---
Author Organization [facility] ity Address [address] [place] [address] Care Team Providers Care Soda Maker Name Role Phone Unavailable Primary Care Provider [...]
--- OUTSIDE RECORDS SUMMARY | 2025-08-15 08:55 | XMS_ITS | Encounter Summary ---
Author Organization [facility] Address [address] [place] [address] [place] [address] Phone Care Team Providers Care Secured Entrance Monitor Name Role Phone Ailyn Lynne PA-C Primary Care Provider [phone] Encounter Details Date Type Department Care Team (Late st Contact Info) Description 02/03/2025 Telephone VO[facility] Internal Medicine [address] [place], [place] [phone] Ailyn Lynne PA-C 40 [place] [address] [email or web address] Social History Tobacco Use Types Packs/Day Years [...] high school, GED, job training, learning the Croatian language, technical skills, or developing parenting skills)? [...] 11:20 AM EST Office Visit [facility] [address] [place] [address] Ailyn Lynne PA-C 40 [place] [address] [email or web address] documented as of this encounter Visit Diagnoses Not on filedocumented in this encounter Additional Health Concerns Assessment Noted Time PHQ-2 Depression Total Score: 0 09/05/20 24 2:41 PM EST documented as of this encounter Care Teams Secured Entrance Monitor Relationship Specialty Start Date End Date Ailyn Lynne PA-C [address] [place] [address] [email or web address] PCP - General Physician Steward/Stewardess Second 09/27/24 documented as of this encounter Additional Source Comments The information contained in this document represents components of the legal health record. It is not the complete legal health record.[facility]
--- OUTSIDE RECORDS SUMMARY | 2025-08-15 08:56 | XMS_ITS | Encounter Summary ---
Author Organization [facility] Address [address] [facility] [address] [place] [address] Phone Care Team Providers Care Quality Officer Name Role Phone Ailyn Lynne PA-C Primary Care Provider [phone] Encounter Details Date Type Department Care Team (Late st Contact Info) Description 07/21/2025 Orders Only [facility] Medicine [address] [place] [address] Provider, MD Palu [address] [place], [place] [phone] Social History Tobacco Use Types Packs/Day Years [...] high school, GED, job training, learning the Greenlandic language, technical skills, or developing parenting skills)? [...] EST Office Visit [facility] [place] [facility] [address] [place] [address] Ailyn Lynne PA-C 40 [place] [address] documented as of this encounter Procedures Procedure [...] documented as of this encounter Care Teams Quality Officer Relationship Specialty Start Date End Date Ailyn Lynne PA-C [address] [place] [address] [email or web address] PCP - General Physician Engineering Programmer 09/27/24 documented as of this encounter Additional Source Comments The information contained in this document represents components of the legal health record. It is not the complete legal health record.[facility]
--- OUTSIDE RECORDS SUMMARY | 2025-08-15 08:56 | XMS_ITS | Encounter Summary ---
Author Organization [facility] Address [address] [facility] [address] [place] [address] Phone Care Team Providers Care Pump Tender Name Role Phone Ailyn Lynne PA-C Primary Care Provider Encounter Details Date Type Department Care Team (Late st Contact Info) Description 10/04/2024 Procedure Pass [facility], [address] [address] Social History Tobacco Use Types Packs/Day Years [...] EST Office Visit [facility] [place] [facility] [address] [place] [address] Ailyn Lynne PA-C 40 [place] [address] [email or web address] documented as of this encounter Visit Diagnoses Not on filedocumented in this encounter Additional Health Concerns Assessment Noted Time PHQ-2 Depression Total Score: 0 09/05/20 2:41 PM EST documented as of this encounter Care Teams Pump Tender Relationship Specialty Start Date End Date Ailyn Lynne PA-C [address] [place] [phone] [email or web address] PCP - General Physician Replacer 09/27/24 documented as of this encounter Additional Source Comments The information contained in this document represents components of the legal health record. It is not the complete legal health record.[facility]
--- OUTSIDE RECORDS SUMMARY | 2025-08-15 08:56 | XMS_ITS | Encounter Summary ---
Author Organization [facility] Address [address] [address] Phone Care Team Providers Care Transportation Director Name Role Phone Ailyn Lynne PA-C Primary Care Provider [phone] Encounter Details Date Type Department Care Team (Late st Contact Info) Description 07/21/2025 Orders Only [facility] [address] [place], [place] [phone] Ailyn Lynne PA-C [address] [place] [address] [email or web address] [place] of left breast, unspecified quadrant (Primary [...] high school, GED, job training, learning the Vietnamese language, technical skills, or developing parenting skills)? [...] Description 09/12/2025 11:20 AM EST Office Visit [facility] Internal [facility] [address] [place] [address] Ailyn Lynne PA-C [address] [place] [address] [email or web address] documented as of this encounter Procedures Procedure [...] documented as of this encounter Care Teams Transportation Director Relationship Specialty Start Date End Date Ailyn Lynne PA-C [address] [place] [address] [email or web address] PCP - General Physician Criminal Justice Program Director 09/27/24 documented as of this encounter Additional Source Comments The information contained in this document represents components of the legal health record. It is not the complete legal health record.[facility]
--- OUTSIDE RECORDS SUMMARY | 2025-08-15 08:56 | XMS_ITS | Encounter Summary ---
Author Organization [facility] Address [address] [facility] [address] [place] [address] Phone Care Team Providers Care Actuarial Analyst Name Role Phone Ailyn Lynne PA-C Primary Care Provider Encounter Details Date Type Department Care Team (Late st Contact Info) Description 10/04/2024 Procedure Pass [facility], [address] [address] Social History Tobacco Use Types Packs/Day Years [...] high school, GED, job training, learning the [place] language, technical skills, or developing parenting skills)? [...] EST Office Visit [facility] [place] [facility] [address] [place] [address] Ailyn Lynne PA-C 40 [place] [address] [email or web address] documented as of this encounter Visit Diagnoses Not on filedocumented in this encounter Additional Health Concerns Assessment Noted Time PHQ-2 Depression Total Score: 0 09/05/20 2:41 PM EST documented as of this encounter Care Teams Actuarial Analyst Relationship Specialty Start Date End Date Ailyn Lynne PA-C [address] [place] [phone] [email or web address] PCP - General Physician Welfare Eligibility Worker 09/27/24 documented as of this encounter Additional Source Comments The information contained in this document represents components of the legal health record. It is not the complete legal health record.[facility]
[2025-09-11 09:05] VITALS: BMI 27.1
--- NOTE | ~2025-09-13 | MM_ITS ---
Single right breast specimen radiograph demonstrates the tag and the top hat former clip within the specimen. Electronically signed by: Roula Thibodeaux DO 09/13/2025 09:58 AM [facility]
[2025-09-13 07:02] VITALS: BP 191/88; PULSE 110; RESP 18; TEMP 36.3; O2SAT 96
--- NOTE | 2025-09-13 07:21 | MHC.SHP ---
Pre-Procedural Eval Section A - 24 Hr Update-Section A only Date of Service: 09/13/25 The patient is an INPATIENT: No Changes since office visit: Yes Patient answered all questions; No Cold of Flu in the past 2 weeks, No New Medical Problems and No Changes in Medication The patient has been examined within 24 hours of the surgical procedure. The History & Physical has been completed within 30 days and I have reviewed it.: No Section B - Complete if H&P > 30 days Chief Complaint: Other specified disorders of breast Details of Present Illness: no change in symptoms Relevant Family History (Specify if Yes): No Relevant Social History: Tobacco Use Present Medications: see Short Stay Collaborative assessment Medical History: Significant History (CVD, MS, HTN) History of Previous Operations: No relevant previous surgery Allergies: Allergies Allergy/AdvReac Type Severity Reaction Status Date / Time corticotropin (From ACTHAR Allergy Severe SWELLING Verified 08/11/25 08:29 H.P.) levofloxacin (From LEVAQUIN) Allergy Severe ANGIOEDEMA Verified 08/11/25 08:29 teriflunomide (From AUBAGIO) Allergy Severe SOB/HTN Verified 08/11/25 08:29 albumin human (From REBIF Allergy Intermediate ARM Verified 08/11/25 08:29 (WITH ALBUMIN)) INFECTION interferon beta-1a (From Allergy Intermediate ARM Verified 08/11/25 08:29 REBIF (WITH ALBUMIN)) INFECTION sulfamethoxazole (From Allergy Mild RASH Verified 08/11/25 08:29 BACTRIM) trimethoprim (From BACTRIM) Allergy Mild RASH Verified 08/11/25 08:29 fingolimod (From GILENYA) Allergy Unknown UNKNOWN Verified 08/11/25 08:29 REACTION glatiramer (copolymer 1) Allergy Unknown damage skin Verified 08/11/25 08:29 (Copaxone) 1st Choice Lancets Super Thin Allergy Unknown Unknown Uncoded 08/11/25 08:29 adhesives Allergy Unknown rash Uncoded 08/11/25 08:29 Review of Systems Sugical H&P ROS: Negative: Endocrine and Eyes/Ears/Nose/Throat Exam Surgical H&P Exam: Normal: HEENT, Normal: Heart, Normal: Lungs, Normal: Extremities, Normal: Abdomen and Normal: Skin Plan Diagnosis/Plan: Unchanged I have reviewed the history and physical and performed a pertinent physical examination on my patient. No changes have occurred unless specified. Time Spent With Patient Time: Total time managing care of this patient today ____ minutes.
[2025-09-13] MEDS: Lactated Ringers 1,000 ML 100 ML IVCONT (07:30)
--- NOTE | 2025-09-13 08:04 | HO.ANESPROP2 ---
Documented by User: Tere Serrano NP 09/12/25 09:01 HPI - Anesthesia Eval Consult details Narrative: 65yo F for Right Breast Lumpectomy w/LOCalizer Follows [facility] Cardiology for CAD, htn. Nml testing 04/2025 for atypical CP (likely r/t MS) - see results below. Stable for 1 year f/u at 04/2025 office visit PMF Active Problems Active Problems: All Active Problems Radial scar of right breast (Acute) Atherosclerotic cardiovascular disease (Acute) Essential hypertension (Acute) Right ankle pain (Acute) Family history of breast cancer (Acute) Hyperglycemia (Acute) Tobacco use disorder (Acute) Hypercholesterolemia (Acute) Multiple sclerosis (Acute) Sprain (Acute) Past Medical History Medical History Atherosclerotic cardiovascular disease Essential hypertension Hordeolum externum left lower eyelid Tobacco use disorder Multiple sclerosis Hypercholesterolemia Conjunctivitis Blepharitis of eyelid of right eye Family History Family History Mother No problems noted. Father No problems noted. Sister Breast cancer, Onset Age: 30 Maternal Aunt Breast cancer Surgical History Surgical History History of breast biopsy History of ear surgery History of tonsillectomy Social History Social History Housing: House Alcohol intake: never Patient Tobacco Use Status: Current everyday Tobacco user Tobacco use type: Cigarette Cigarette Packs Per Day: 1 Cigarettes Per Day: 20 e-Cigarette/Vaping Use: Never Used Second Hand Smoke Exposure: Yes Have you been hit, kicked, punched, or otherwise hurt by someone within the past year? If so, by whom?: No Are you DNR?: No Advance Directives: No Advance Directives Information Provided: Yes service: No Current occupational status: disabled Cognitive needs: Yes (cane) Hearing needs: No Vision needs: Yes (Glasses) Meds Allergies Allergy/AdvReac Type Severity Reaction Status Date / Time corticotropin (From ACTHAR Allergy Severe SWELLING Verified 08/11/25 08:29 H.P.) levofloxacin (From LEVAQUIN) Allergy Severe ANGIOEDEMA Verified 08/11/25 08:29 teriflunomide (From AUBAGIO) Allergy Severe SOB/HTN Verified 08/11/25 08:29 albumin human (From REBIF Allergy Intermediate ARM Verified 08/11/25 08:29 (WITH ALBUMIN)) INFECTION interferon beta-1a (From Allergy Intermediate ARM Verified 08/11/25 08:29 REBIF (WITH ALBUMIN)) INFECTION sulfamethoxazole (From Allergy Mild RASH Verified 08/11/25 08:29 BACTRIM) trimethoprim (From BACTRIM) Allergy Mild RASH Verified 08/11/25 08:29 fingolimod (From GILENYA) Allergy Unknown UNKNOWN Verified 08/11/25 08:29 REACTION glatiramer (copolymer 1) Allergy Unknown damage skin Verified 08/11/25 08:29 (Copaxone) 1st Choice Lancets Super Thin Allergy Unknown Unknown Uncoded 08/11/25 08:29 adhesives Allergy Unknown rash Uncoded 08/11/25 08:29 Home Medications ?Medication ?Instructions ?Recorded ?Confirmed ?Last Taken ?Type atorvastatin 80 mg tablet (Lipitor) 20 mg PO BEDTIME 02/15/25 09/11/25 09/12/25 History dimethyl fumarate 240 mg 240 mg PO BID 02/15/25 09/11/25 09/12/25 History capsule,delayed release (Tecfidera) lisinopril 5 mg tablet 15 mg PO DAILY 02/15/25 09/11/25 09/12/25 History omeprazole 20 mg capsule,delayed 40 mg PO DAILY 02/15/25 09/11/25 09/13/25 History release Exam Height,Weight and Vital Signs: Height 5 ft 5 in Weight 73.936 kg Narrative Narrative: Coronary CTA from 2018 showed mild to moderate plaque in the proximal to distal LAD and throughout the RCA with mild plaque in the circumflex. Cardiac catheterization in 2018 showed moderate nonobstructive disease in the RCA with minimal disease in the left coronary arteries. Patient then underwent a abdominal CTA that showed severe calcifications and given her symptoms of chest discomfort, patient underwent a myocardial perfusion study. 03/24/2025-echo study showed a normal LV systolic function with an ejection fraction at 63% with mild aortic valve calcification and mild aortic valve regurgitation. 04/28/2025-myocardial perfusion study showed normal perfusion. Assessment and Plan Assessment Anesthesia Assessment: Chart Reviewed Documented by User: Toshia Mcbride DO 09/13/25 08:08 HPI - Anesthesia Eval Consult details Narrative: 65yo F for Right Breast Lumpectomy w/LOCalizer Follows [facility] Cardiology for CAD, htn. Nml testing 04/2025 for atypical CP (likely r/t MS) - see results below. Stable for 1 year f/u at 04/2025 office visit MS symptoms include bilateral lower extremity paresthesias and a corset-like sensation around her abdomen. [facility] Past Medical History Medical History Atherosclerotic cardiovascular disease Essential hypertension Hordeolum externum left lower eyelid Tobacco use disorder Multiple sclerosis Hypercholesterolemia Conjunctivitis Blepharitis of eyelid of right eye Family History Family History Mother No problems noted. Father No problems noted. Sister Breast cancer, Onset Age: 30 Maternal Aunt Breast cancer Family history of problems with anesthesia: No Surgical History Surgical History History of breast biopsy History of ear surgery History of tonsillectomy History of Problems with Anesthesia: No Social History Social History Housing: House Alcohol intake: never Patient Tobacco Use Status: Current everyday Tobacco user Tobacco use type: Cigarette Cigarette Packs Per Day: 1 Cigarettes Per Day: 20 e-Cigarette/Vaping Use: Never Used Second Hand Smoke Exposure: Yes Have you been hit, kicked, punched, or otherwise hurt by someone within the past year? If so, by whom?: No Are you DNR?: No Advance Directives: No Advance Directives Information Provided: Yes service: No Current occupational status: disabled Cognitive needs: Yes (cane) Hearing needs: No Vision needs: Yes (Glasses) Meds Allergies Allergy/AdvReac Type Severity Reaction Status Date / Time corticotropin (From ACTHAR Allergy Severe SWELLING Verified 08/11/25 08:29 H.P.) levofloxacin (From LEVAQUIN) Allergy Severe ANGIOEDEMA Verified 08/11/25 08:29 teriflunomide (From AUBAGIO) Allergy Severe SOB/HTN Verified 08/11/25 08:29 albumin human (From REBIF Allergy Intermediate ARM Verified 08/11/25 08:29 (WITH ALBUMIN)) INFECTION interferon beta-1a (From Allergy Intermediate ARM Verified 08/11/25 08:29 REBIF (WITH ALBUMIN)) INFECTION sulfamethoxazole (From Allergy Mild RASH Verified 08/11/25 08:29 BACTRIM) trimethoprim (From BACTRIM) Allergy Mild RASH Verified 08/11/25 08:29 fingolimod (From GILENYA) Allergy Unknown UNKNOWN Verified 08/11/25 08:29 REACTION glatiramer (copolymer 1) Allergy Unknown damage skin Verified 08/11/25 08:29 (Copaxone) 1st Choice Lancets Super Thin Allergy Unknown Unknown Uncoded 08/11/25 08:29 adhesives Allergy Unknown rash Uncoded 08/11/25 08:29 Home Medications ?Medication ?Instructions ?Recorded ?Confirmed ?Last Taken ?Type atorvastatin 80 mg tablet (Lipitor) 20 mg PO BEDTIME 02/15/25 09/11/25 09/12/25 History dimethyl fumarate 240 mg 240 mg PO BID 02/15/25 09/11/25 09/12/25 History capsule,delayed release (Tecfidera) lisinopril 5 mg tablet 15 mg PO DAILY 02/15/25 09/11/25 09/12/25 History omeprazole 20 mg capsule,delayed 40 mg PO DAILY 02/15/25 09/11/25 09/13/25 History release Exam Exam Date and Time: 09/13/25804 Height,Weight and Vital Signs: Height 5 ft 5 in Weight 73.936 kg Vital Signs Temperature 97.3 F 09/13/25 07:02 Pulse Rate 110 H 09/13/25 07:02 Respiratory Rate 18 09/13/25 07:02 Blood Pressure 191/88 H 09/13/25 07:02 Pulse Oximetry 96 09/13/25 07:02 Oxygen Delivery Method Room Air 09/13/25 07:02 Temperature 97.3 F 09/13/25 07:02 Pulse Rate 110 H 09/13/25 07:02 Respiratory Rate 18 09/13/25 07:02 Blood Pressure 191/88 H 09/13/25 07:02 Pulse Oximetry 96 09/13/25 07:02 Oxygen Delivery Method Room Air 09/13/25 07:02 Airway Mallampati Class: II TM Dist: >3cm Neck ROM: Full Loose/Missing/Broken Teeth: No (patient denies any loose or broken teeth) Heart: S1S2 Lungs: CTAB Assessment and Plan Assessment Anesthesia Assessment: Anesthesia Plan Discussed and Chart Reviewed Final Anesthetic Review Family History of Problems with Anesthesia: No History of Problems with Anesthesia: No NPO: Yes ASA Class: III Final Preanesthetic Review: No Changes in Pt Med Stat, Meds/Allgs Chart Reviewed, Consent Obtained/Reviewed and Anes Risks/Benef Reviewed Patient Risk: Intermediate Procedure Risk: Low Anesthetic Plan Anesthetic Plan: GA and Agree w/ Assess. and Plan Disposition: Standard PACU
[2025-09-13 09:40] VITALS: BP 124/66; PULSE 113; RESP 16; TEMP 36.5; O2SAT 97
--- NOTE | 2025-09-13 09:40 | P.OP_ITS ---
Operative Note Operative Note Date of Service: 09/13/25 Narrative: Preoperative diagnosis:Radial scar right breast upper outer quadrant Postoperative diagnosis: same Procedure: right breast lumpectomy with localizer Surgeon: Jorge Luis Cai MD [place] Caster: Jackson Cardona PA-C Anesthesia: general LMA Indications for procedure: 65-year-old female patient presenting with an area of architectural distortion in the right breast upper outer quadrant status post stereotactic guided core biopsy which revealed radial scar. Wider excision was recommended to assure complete removal. She presents today for lumpectomy with localizer. Operative findings: Marking clip and localizer clip noted in the specimen x- ray. Gross pathology confirmed biopsy site within the specimen. Margins were grossly negative. Specimen: Right breast lumpectomy Estimated blood loss: 2 mL Complications: none Procedure details: patient was brought to the OR and placed in a supine position. After administering general anesthesia, the right breast was prepped with ChloraPrep and draped in a sterile fashion. A surgical time-out was called the consent confirmed. Patient received preoperative antibiotics and Venodyne boots were in place. LOCalizer was used to identify the area of clip location. A circumareolar incision was made between the 10 and 2 o'clock position and carried out through subcutaneous tissue. Superior and inferior skin flaps were then created with the electrocautery. A core of tissue around the localizing clip was then created using electrocautery beginning with the superior margin followed by the medial margin, inferior margin, posterior margin and finally a lateral margin. Lesion was removed and marked with a long suture at the lateral margin, short suture at the superior margin, and looped suture at the posterior margin. Specimen x-ray confirmed localizing clip and the original biopsy clip within the specimen. Subsequent pathology confirmed biopsy cavity within the specimen with grossly negative margins. Wounds were irrigated with saline solution and suctioned dry. Wounds were checked for hemostasis using electrocautery. Deep breast tissue was reapproximated using interrupted 3-0 Polysorb sutures. Superficial breast tissue and dermis were reapproximated using interrupted 3-0 Polysorb sutures. Skin was then closed using a running subcuticular 4-0 Polysorb suture. Steri- Strips, 4 x 4 gauze and Tegaderm were then applied. The patient tolerated the procedure well. Sponge, instrument, and needle counts reported as correct. The patient was transferred to PACU in stable condition.
[2025-09-13 09:45] VITALS: BP 131/66; PULSE 106; RESP 16; O2SAT 95
[2025-09-13 09:50] VITALS: BP 141/62; PULSE 110; RESP 16; O2SAT 96
[2025-09-13 09:55] VITALS: BP 134/65; PULSE 106; RESP 16; O2SAT 98
[2025-09-13] MEDS: oxyCODONE HCl Immed Release 5 MG TABLET PO (10:00)
[2025-09-13 10:10] VITALS: BP 138/64; PULSE 102; RESP 16; TEMP 36.8; O2SAT 100
== END 2025-09-13 10:38 | disposition home or self-care (01) ==
PROVIDERS: Visit Provider Surgery
PROC: (CPT 19301; principal; 2025-09-13 08:40)
DX: N64.89 Other specified disorders of breast (principal); Z80.3 Family history of malignant neoplasm of breast; N64.4 Mastodynia; N60.81 Other benign mammary dysplasias of right breast; D24.1 Benign neoplasm of right breast; N60.21 Fibroadenosis of right breast; G35.D Multiple sclerosis, unspecified; I25.10 Atherosclerotic heart disease of native coronary artery without angina pectoris; I10 Essential (primary) hypertension; E78.00 Pure hypercholesterolemia, unspecified; Z79.899 Other long term (current) drug therapy; Z88.1 Allergy status to other antibiotic agents; Z88.2 Allergy status to sulfonamides; Z88.8 Allergy status to other drugs, medicaments and biological substances; L23.1 Allergic contact dermatitis due to adhesives; F17.210 Nicotine dependence, cigarettes, uncomplicated; Z98.890 Other specified postprocedural states
CPT/HCPCS: 19301; 88307; J0690; J1100; J2003; J2405; J2704; J3010

== ENCOUNTER → 2025-09-13 06:53 | Outpatient (BNV) | payer MEDICARE, SELFPAY | PROVIDERS: Visit Provider Surgery | DX: N64.89 Other specified disorders of breast (principal) | CPT/HCPCS: 19301 ==

== ENCOUNTER 2025-09-14 17:51 | Emergency (ER) | payer MEDICARE, SELFPAY ==
--- NOTE | ~2025-09-14 | CT_ITS ---
CLINICAL HISTORY: rule out dissection CT angiography chest with contrast. 3D Postprocessing. Comparison: None provided Findings: The heart size is normal. RV/LV ratio is normal. The thoracic aorta is normal caliber. No acute pulmonary embolus. The visualized thyroid and mediastinum are unremarkable. There are scattered foci of gas throughout right anterior chest wall and right-sided pectoralis musculature. There is associated mild soft tissue stranding. The lungs are clear. The visualized upper abdomen is unremarkable. No acute fractures. IMPRESSION: 1. No pulmonary emboli. 2. No thoracic aortic aneurysm or dissection. 3. Scattered foci of air throughout right anterior chest wall and musculature with associated stranding. Findings are of indeterminate etiology however could represent sequela of posttraumatic injury. Infectious or inflammatory process is also possible in the appropriate clinical setting. Correlation with patient's symptoms and clinical history is recommended. 4. Recommend short-term follow-up imaging to assess for evolution of these findings. This document has been electronically signed by: Trace Ferreira MD on 09/14/2025 20:49:51
[2025-09-14 17:58] VITALS: BP 140/92; BP 171/91; PULSE 108; PULSE 96; RESP 18; TEMP 36.5; O2SAT 97; BMI 25.9
--- NOTE | 2025-09-14 18:04 | ECG_ITS ---
Test Reason : DIZZINESS Blood Pressure : */* mmHG Vent. Rate : 98 BPM Atrial Rate : 98 BPM P-R Int : 124 ms QRS Dur : 76 ms QT Int : 360 ms P-R-T Axes : 44 -11 24 degrees QTcB Int : 459 ms Normal sinus rhythm Minimal voltage criteria for LVH, may be normal variant ( R in aVL ) Borderline ECG When compared with ECG of 16-Jul-2011 23:58, No significant change was found Referred By: Generic ED Physician Electronically Signed By: Abhilash Cabrera
--- NOTE | 2025-09-14 18:17 | ED.DIZZY ---
HPI - Dizziness General Chief Complaint: Dizziness Stated Complaint: nausea dizzy Time Seen by Provider: 09/14/25 18:04 Source: patient Mode of arrival: EMS Limitations: no limitations History of Present Illness ED Provider: Rosalia Cantrell PA-C HPI Narrative: Patient arrives to the emergency department today for evaluation of lightheadedness that is associated with diaphoresis. PMH sig for MS, atherosclerosis, HTN, hypercholesteremia, and right sided breast cancer. Several histories were given from patient's family members including her son as well as her who witnessed. Onset 40 minutes ago. She arrived via EMS with POC glucose of 122. Son to patient: My mom went outside to go smoke a cigarette and when she came back inside and sat down she stated that she did not feel well and started to sweat and turned pale she then felt nauseous and then went to go stand up and felt lightheaded. Myself and my dad helped her outside as it was cold and thought it would help be helpful. Brother to patient: She was sitting at the table and started to sweat and saw strand of the need of sweat fall down her forehead she stated she did not feel well so I offered to bring her outside for some of the cold air. After several minutes she felt and looked better but at that time that it be best to call an ambulance. I was trying to talk to her during this and she was slow to respond but messed up speech . No dysphasia or dysarthia. Patient: I was just sitting at the table and started not to feel well I felt nauseous, and got up to go outside and then felt very lightheaded like I was going to pass out but did not. I have felt short of breath since that time. Patient is denying any use of alcohol and she has no chest pain she just feel slightly nauseous and short of breath. She is denying any palpitations she has not felt sick prior to and leading her this. She is denying any fevers she is not coughing she has not vomiting or diarrhea denies having a belly ache but does feel like she has sharp back pain with this denies any falls or trauma no prior episodes of this in the past. Significant past medical history includes patient had a lumpectomy yesterday of her right breast for suspicious mass. No UA sxs or rashes. Denies pleuritic pain. Hx also sig for MS, baseline paresthesias in toes, no change. No headaches. Daughter to patient: Not present for event. She gives information that her Mom has has MS for what she believes is all her life. No flares of her MS, she is active and does not use assistive devices to ambulate. Has MS specialist. Baseline paresthesias of face and legs. No changes. Nurse informed me spouse report of speech issue, to assess for potential stroke, seen immediately at bedside. NIH scale 0, hx obtained not consistent with this, no stroke protocol placed. MD elicited complaint: lightheadedness Related Data Home Medications ?Medication ?Instructions ?Recorded ?Confirmed atorvastatin 80 mg tablet (Lipitor) 20 mg PO BEDTIME 02/15/25 09/11/25 dimethyl fumarate 240 mg 240 mg PO BID 02/15/25 09/11/25 capsule,delayed release (Tecfidera) lisinopril 5 mg tablet 15 mg PO DAILY 02/15/25 09/11/25 omeprazole 20 mg capsule,delayed 40 mg PO DAILY 02/15/25 09/11/25 release Allergies Allergy/AdvReac Type Severity Reaction Status Date / Time corticotropin (From ACTHAR Allergy Severe SWELLING Verified 09/25/25 09:46 H.P.) levofloxacin (From LEVAQUIN) Allergy Severe ANGIOEDEMA Verified 09/25/25 09:46 teriflunomide (From AUBAGIO) Allergy Severe SOB/HTN Verified 09/25/25 09:46 albumin human (From REBIF Allergy Intermediate ARM Verified 09/25/25 09:46 (WITH ALBUMIN)) INFECTION interferon beta-1a (From Allergy Intermediate ARM Verified 09/25/25 09:46 REBIF (WITH ALBUMIN)) INFECTION sulfamethoxazole (From Allergy Mild RASH Verified 09/25/25 09:46 BACTRIM) trimethoprim (From BACTRIM) Allergy Mild RASH Verified 09/25/25 09:46 fingolimod (From GILENYA) Allergy Unknown UNKNOWN Verified 09/25/25 09:46 REACTION glatiramer (copolymer 1) Allergy Unknown damage skin Verified 09/25/25 09:46 (Copaxone) 1st Choice Lancets Super Thin Allergy Unknown Unknown Uncoded 09/25/25 09:46 adhesives Allergy Unknown rash Uncoded 09/25/25 09:46 Review of Systems Review of Systems: Yes all other systems are reviewed and are negative PMFSH Past Medical History Attestation statement: The following information was validated with the patient. Source: old records reviewed, obtained from family and nursing notes reviewed Medical History Atherosclerotic cardiovascular disease Essential hypertension Hordeolum externum left lower eyelid Tobacco use disorder Multiple sclerosis Hypercholesterolemia Conjunctivitis Blepharitis of eyelid of right eye Surgical History History of lumpectomy of right breast (09/13/25) History of breast biopsy History of ear surgery History of tonsillectomy Family History Family History Mother No problems noted. Father No problems noted. Sister Breast cancer, Onset Age: 30 Maternal Aunt Breast cancer Social History Social History Housing: House Alcohol intake: never Patient Tobacco Use Status: Current everyday Tobacco user Tobacco use type: Cigarette Cigarette Packs Per Day: 1 Cigarettes Per Day: 20 e-Cigarette/Vaping Use: Never Used Second Hand Smoke Exposure: Yes service: No Current occupational status: disabled Cognitive needs: Yes (cane) Hearing needs: No Vision needs: Yes (Glasses) Physical Exam Exam: Exam: General: Appears in no acute distress, appears well nourished body habitus is overweight, appears stated age. No septic or ill-appearing. Vitals reviewed normal, PMH/Social and Surgical hx reviewed including allergies and current medications. - reviewed for prior visits here Head: Normocephalic, no obvious trauma or skin lesions noted. AOx4, NIH scale 0. Eyes: EOMI, PERRLA, cranial nerves 3-12 intact ENMT: dry oral mucosa, uvula is midline tongue is midline, no fasciculations or tremors Neck: trachea midline Cardiovascular: peripheral perfusion normal, Regular heart rate, regular rhythm, pulses equal and symmetric, no abdominal bruit, hands feel cold Respiratory: no respiratory distress, lungs clear, no chest wall tenderness, Abdomen: nondistended, nontender Extremities: warm and moving without difficulty Psych: Cooperative Neuro: Alert and oriented. Negative pronator drift, as above, strength 4- throughout Vital Signs: Vital Signs: Last Vital Signs Temp 97.7 F 09/14/25 22:10 Pulse 85 09/14/25 22:10 Resp 17 09/14/25 22:10 BP 122/59 L 09/14/25 22:10 Pulse Ox 97 09/14/25 22:10 O2 Del Method Room Air 09/14/25 22:10 BMI result Body Mass Index 25.9 Const: Orientation/consciousness: patient oriented x3 Neuro: General: patient oriented x3, moves all extremities, no focal motor deficits and CN's II-XI intact bilaterally Medications Administered Discontinued Medications Generic Name Dose Route Start Last Admin Trade Name Freq PRN Reason Stop Dose Admin Sodium Chloride 1,000 mls @ 999 mls/hr 09/14/25 19:10 09/14/25 20:45 Ns IV 09/14/25 20:10 Infused .Q1H1M ONE Infusion Iohexol 70 ml 09/14/25 18:41 09/14/25 18:41 Iohexol 350 Mg/Ml 100 Ml Infus..Btl IV 09/14/25 18:42 70 ml ONCE ONE Administration Ondansetron HCl 4 mg 09/14/25 18:22 09/14/25 18:38 Ondansetron Hcl 4 Mg/2 Ml Vial IVPUSH 09/14/25 18:23 4 mg ONCE ONE Administration Medical Decision Making Medical Decision Making MDM Narrative: 1849: Preliminary view of CTA of chest without appreciation of dissection. EKG: nondiagnostic, no evidence of ischemia or malignant arrhythmia; 98 bpm. NO leukocytosis, anemia, or sig metabolic dysfunction. No WALESKA, hepatobiliary disease, or pancreatitis. 1909: Initial troponin is negative < 2.7. Will trend for delta. Negative to COVID, FLU and RSV. 1999: NT proBNP 300.7, she has dry oral mucosa and does not appear fluid overloaded, will give 1L IVF for suspected dehydration. Urine with sp g> 1.030, same from 06/17/21, otherwise normal values. Final CTA chest pending. 2114: trop pending, CTA chest : IMPRESSION: 1. No pulmonary emboli. 2. No thoracic aortic aneurysm or dissection. 3. Scattered foci of air throughout right anterior chest wall and musculature with associated stranding. Findings are of indeterminate etiology however could represent sequela of posttraumatic injury. Infectious or inflammatory process is also possible in the appropriate clinical setting. Correlation with patient's symptoms and clinical history is recommended. 4. Recommend short-term follow-up imaging to assess for evolution of these findings. 2135: 2nd trop is negative. Able to rule out ACS. Patient seen at bedside and IVFs has completed. She is feeling much better and endorses she feels comfortable and would like to go home. She is no longer having any symptoms. Differential Diagnosis Differential Diagnoses: The differential diagnosis associated with the presentation includes vasovagal episode aortic dissection ACS dehydration viral sydrome Admission/Observation Consideration of admission/observation: Escalation of care including admission/observation considered Lab Data MDM Lab Attestation statement: I reviewed the patient's lab results. 09/14/25 18:15 09/14/25 18:15 Labs: Lab Results 09/14/25 09/14/25 09/14/25 Range/Units 18:15 19:22 20:48 WBC 10.8 (4.8-10.8) X10*3/uL RBC 4.70 (4.20-5.50) X10*6/uL Hgb 13.6 (12.0-16.0) g/dl Hct 41.6 (37.0-47.0) % MCV 88.5 (80.0-98.0) fL MCH 28.9 (27.0-33.0) pg MCHC 32.7 (31.0-35.0) g/dl RDW 15.0 (11.0-16.0) % Plt Count 240 (160-400) X10*3/uL MPV 10.1 (9.4-12.3) fL Immature Gran % (Auto) 0.3 (0.0-0.4) % Neut % (Auto) 74.5 H (45-73) % Lymph % (Auto) 16.3 L (20-40) % Caroline % (Auto) 7.4 (2-11) % Eos % (Auto) 0.9 (0-4) % Baso % (Auto) 0.6 (0-2) % Lymph # (Auto) 1.8 (1.2-4.9) X10*3/uL Caroline # (Auto) 0.8 (0.1-1.2) X10*3/uL Eos # (Auto) 0.1 (0.0-0.4) X10*3/uL Baso # (Auto) 0.1 (0.0-0.2) X10*3/uL Abs Immat Gran (auto) 0.03 (0.00-0.03) X10*3/uL Absolute Neuts (auto) 8.0 (2.0-8.3) x10*3/uL Absolute Nucleated RBC 0.000 (0.0-0.012) X10*3/uL Nucleated RBC % (auto) 0.0 (0.0-0.2) /100WBC PT 11.8 (11.2-13.5) SEC INR 1.0 (0.9-1.1) Sodium 143 (135-145) mmol/L Potassium 3.4 (3.3-5.1) mmol/L Chloride 110 H (96-108) mmol/L Carbon Dioxide 24 (22-29) mmol/L Anion Gap 12 (12-20) BUN 23 H (9-16) mg/dL Creatinine 0.90 (0.5-1.4) mg/dL Estim Creat Clear Calc 61.4 Estimated GFR > 60 Random Glucose 127 H (60-115) mg/dL Calcium 9.7 (8.4-10.2) mg/dL Magnesium 2.0 (1.6-2.6) mg/dL Total Bilirubin 0.4 (0.0-1.0) mg/dL AST 19 (5-31) U/L ALT 16 (0-31) U/L Alkaline Phosphatase 83 (39-117) U/L Troponin I High Sens < 2.7 < 2.7 (<3.5-17.0) ng/L NT-Pro-B Natriuret Pep 300.7 H (<300) pg/mL Total Protein 7.4 (6.5-8.0) g/dL Albumin 5.0 (3.5-5.0) g/dL Lipase 32 (8-78) U/L Urine Color Yellow Urine Appearance Clear Urine pH 5.5 (5.0-9.0) Ur Specific [place] >= 1.030 H (1.005-1.025) Urine Protein Trace (Neg-Trace) mg/dL Urine Glucose (UA) Negative (Negative) mg/dL Urine Ketones Negative (Negative) mg/dL Urine Blood Negative (Negative) Urine Nitrite Negative (Negative) Ur Leukocyte Esterase Negative (Negative) Influenza Type A (PCR) NEGATIVE (Negative) Influenza Type B (PCR) NEGATIVE (Negative) RSV RNA Qual (PCR) NEGATIVE (Negative) SARS-CoV-2 RNA (RT-PCR) NEGATIVE (Negative) Independent Interpretation I performed an independent interpretation of an: EKG and CT Scan Interpretation: As above in MDM Radiology Impression Discussion of test interpretation with radiology: I have reviewed the radiologist's reading. Discharge Plan Discharge Clinical Impression: Vasovagal attack, Light-headedness, Nausea Patient Disposition: Home, Self-Care Instructions: Near Syncope (ED) Additional Instructions: You were seen in the emergency department today following an episode of lightheadedness associated with nausea sweating. based on your history and physical is highly suspicious for vasovagal reaction. just in case we obtain a cardiac workup are able to rule out acute coronary syndrome, aortic dissection, pulmonary embolism and pneumothorax. You were given Zofran for the nausea as well as IV fluids as you were dehydrated on exam. you have reported that your feeling much better. Your blood work was reassuring no evidence of infection or metabolic dysfunction or anemia. Please follow-up with your PCP regarding your episode today. You may also follow-up with the Aeronautical Test Engineer. If you have a recurrent episode please lay down on the ground and elevate your legs. If you develop any chest pain, palpitations or sense that your heart is racing, difficulty breathing, or any other new, concerning symptoms please return. Prescriptions: No Action omeprazole 20 mg capsule,delayed release(DR/EC) 40 mg PO DAILY lisinopril 5 mg tablet 15 mg PO DAILY atorvastatin [Lipitor] 80 mg tablet 20 mg PO BEDTIME dimethyl fumarate [Tecfidera] 240 mg capsule,delayed release(DR/EC) 240 mg PO BID Referrals: Ailyn Lynne PA [Primary Care Provider, Internal Medicine] Clinical Impression: Vasovagal attack Interventions: ED Discharge Assessment Last Done: 09/14/25 22:10 Discharge Date/Time: 09/14/25 22:10 Print Language: Faroese
[2025-09-14 18:21] LABS: MANUAL DIFF FLAG NO
[2025-09-14 18:36] LABS: Hematocrit 41.6 % (37.0-47.0); Hemoglobin 13.6 g/dl (12.0-16.0); Imm Gran Abs Auto 0.03 X10*3/uL (0.00-0.03); Imm Gran Pct Auto 0.3 % (0.0-0.4); Lymphocytes Absolute Auto 1.8 X10*3/uL (1.2-4.9); Mean Corpuscular HGB Conc 32.7 g/dl (31.0-35.0); Mean Corpuscular Hemoglobin 28.9 pg (27.0-33.0); Mean Corpuscular Volume 88.5 fL (80.0-98.0); NRBC Abs Auto 0.000 X10*3/uL (0.0-0.012); NRBC Pct Auto 0.0 /100WBC (0.0-0.2); Platelet Count 240 X10*3/uL (160-400); Red Blood Count 4.70 X10*6/uL (4.20-5.50); White Blood Count 10.8 X10*3/uL (4.8-10.8)
[2025-09-14 18:40] VITALS: BP 153/66; PULSE 102; RESP 18; O2SAT 96
[2025-09-14] MEDS: iohexoL 350 MG/ML 100 ML INFUS..BTL 70 ML IV (18:41)
[2025-09-14 18:42] LABS: Alanine Aminotransferase 16 U/L (0-31); Albumin Level 5.0 g/dL (3.5-5.0); Alkaline Phosphatase 83 U/L (39-117); Anion Gap 12 (12-20); Aspartate Amino Transferase 19 U/L (5-31); Blood Urea Nitrogen 23 mg/dL (9-16); Calcium 9.7 mg/dL (8.4-10.2); Carbon Dioxide 24 mmol/L (22-29); Chloride 110 mmol/L (96-108); Creatinine Clr Calc Pharmacy 61.4; Estimated Glomerular Filt Rate > 60; Lipase 32 U/L (8-78); Magnesium 2.0 mg/dL (1.6-2.6); Potassium 3.4 mmol/L (3.3-5.1); Sodium 143 mmol/L (135-145); Total Protein 7.4 g/dL (6.5-8.0)
[2025-09-14 18:49] LABS: INTERNATIONAL NORM RATIO 1.0 (0.9-1.1); Prothrombin Time 11.8 SEC (11.2-13.5)
[2025-09-14 18:54] LABS: Troponin-I High Sensitivity < 2.7 ng/L (<3.5-17.0)
[2025-09-14 19:00] LABS: Resp Syncy Virus RNA Qual PCR NEGATIVE (Negative); SARS COV2 PCR INHOUSE NEGATIVE (Negative)
[2025-09-14 19:30] LABS: Appearance Urine Clear; Glucose Urine UA Negative (Negative); PH 5.5 (5.0-9.0); Specific Gravity - Urine >= 1.030 (1.005-1.025)
[2025-09-14 19:31] LABS: NT Pro B Type Natriuretic Pept 300.7 pg/mL (<300)
--- OUTSIDE RECORDS SUMMARY | 2025-09-14 20:07 | XMS_ITS | Encounter Summary ---
Author Organization [facility] Address [address] [facility] [address] [place] [address] Phone Care Team Providers Care Restaurant Host/Hostess Name Role Phone Ailyn Lynne PA-C Primary Care Provider [phone] Encounter Details Date Type Department Care Team (Late st Contact Info) Description 10/04/2024 Procedure Pass [facility], [address] [address] Social History Tobacco Use Types Packs/Day Years Used Date Smoking Tobacco: Every Day Cigarettes 0.5 55.9 Started: 1970 Passive Smoke Exposure: Never Smokeless [...] high school, GED, job training, learning the [place] language, technical skills, or developing parenting skills)? [...] Care Team (Late st Contact Info) Description 10/06/2025 2:40 PM EST Office Visit [facility] [facility] [address] [place] [address] Ailyn Lynne PA-C [address] [place] [address] [email or web address] documented as of this encounter Visit Diagnoses Not on filedocumented in this encounter Additional Health Concerns Assessment Noted Time PHQ-2 Depression Total Score: 0 09/05/20 2:41 PM EST documented as of this encounter Care Teams Restaurant Host/Hostess Relationship Specialty Start Date End Date Ailyn Lynne PA-C [address] [place] [id number] [email or web address] PCP - General Physician House Wirer Helper 09/27/24 documented as of this encounter Additional Source Comments The information contained in this document represents components of the legal health record. It is not the complete legal health record.[facility]
--- OUTSIDE RECORDS SUMMARY | 2025-09-14 20:07 | XMS_ITS | Encounter Summary ---
Author Organization [facility] Address [address] [facility] [address] [place] [address] Phone Care Team Providers Care Foreclosure Clerk Name Role Phone Ailyn Lynne PA-C Primary Care Provider Encounter Details Date Type Department Care Team (Late st Contact Info) Description 08/17/2025 Orders Only [facility] [address] [place] [address] Provider, MD Paul [address] [place], [place] [id number] Social History Tobacco Use Types Packs/Day Years [...] high school, GED, job training, learning the Austrian language, technical skills, or developing parenting skills)? [...] EST Office Visit [facility] [address] [place] [address] Ailyn Lynne PA-C [address] [place] [address] [email or web address] documented as of this encounter Procedures Procedure Name Priority Date/Time Associated Diagnosis Comments MAMMOGRAPHY Routine 08/17/2025 12:07 PM EDT documented in this encounter Results * MAMMOGRAPHY FOR RESULT ENTRY ONLY (08/17/2025 12:07 PM EDT) us Historical Provider HEALTH MAINTENANCE Final Result documented in this encounter Visit Diagnoses Not on filedocumented in this encounter Additional Health Concerns Assessment Noted Time PHQ-2 Depression Total Score: 0 09/05/20 2:41 PM EST documented as of this encounter Care Teams Foreclosure Clerk Relationship Specialty Start Date End Date Ailyn Lynne PA-C [address] [place] [address] [email or web address] PCP - General Physician Watch Assembly Instructor 09/27/24 documented as of this encounter Additional Source Comments The information contained in this document represents components of the legal health record. It is not the complete legal health record.[facility]
--- OUTSIDE RECORDS SUMMARY | 2025-09-14 20:07 | XMS_ITS | Encounter Summary ---
Author Organization [facility] Address [address] [facility] [address] [place] [address] Phone Care Team Providers Care Pallet Rectifier Name Role Phone Pcp, Unknown Primary Care Provider Ailyn Mike PA-C Primary Care Provider [phone] Encounter Details Date Type Department Care Team (Late st Contact Info) Description 09/05/2024 Procedure Pass [facility] [address] [place] [address] Social History Tobacco Use Types Packs/Day Years [...] high school, GED, job training, learning the Maldivian language, technical skills, or developing parenting skills)? [...] EST Office Visit [facility] [place] [address] [place] [address] Ailyn Lynne PA-C 40 [place] [address] [email or web address] documented as of this encounter Visit Diagnoses Not on filedocumented in this encounter Additional Health Concerns Assessment Noted Time PHQ-2 Depression Total Score: 0 09/05/20 24 2:41 PM EST documented as of this encounter Care Teams Pallet Rectifier Relationship Specialty Start Date End Date Pcp, Unknown PCP - General 07/09/20 09/26/24 Ailyn Lynne PA-C [address] [place] [address] [email or web address] PCP - General Physician Cessation Systems Outreach Specialist 09/27/24 documented as of this encounter Additional Source Comments The information contained in this document represents components of the legal health record. It is not the complete legal health record.[facility]
--- OUTSIDE RECORDS SUMMARY | 2025-09-14 20:07 | XMS_ITS | Patient Health Record ---
Author Organization [facility] Address [address] [facility] [place] [address] Care Team Providers Care Environmental Monitoring Technician Name Role Phone Xander Chappell MD Primary Care Provider Porter Hyatt Unavailable [phone] Allergies Allergen (clinical drug ingredient) Drug/Non Drug [...] Status Risk Notes Problem Pain in limb (28973715) Pain in Limb (729.5) Active confirmed Problem Stress fracture (14043987) Stress fx (733.94) Active confirmed Plan Of Treatment Pending Test Test Name Order Date [id number] Destruction, 11-0101/01/[id number]-Nwne Destruction, 11-0111/20/2011 [id number] Destruction, 11-0103/06/2014 [id number] Destruction, 11-0104/05/2014 Medical (General) History Medical History History ICD Code raynauds syndrome macular degeneration meningioma cancer multiple sclerosis Osteopenia Surgical History Surgery Date(Month/Year) breast surgery ear surgery tonsillectomy
--- OUTSIDE RECORDS SUMMARY | 2025-09-14 20:07 | XMS_ITS | Encounter Summary ---
Author Organization [facility] Address [address] [facility] [address] [place] [phone] Phone Care Team Providers Care Well Site Drilling Engineer Name Role Phone Ailyn Lynne PA-C Primary Care Provider [phone] Encounter Details Date Type Department Care Team (Late st Contact Info) Description 11/01/2024 Procedure Pass [facility], Ct Scan - [address] [address] Social History Tobacco Use Types Packs/Day Years [...] high school, GED, job training, learning the Gambian language, technical skills, or developing parenting skills)? [...] EST Office Visit [facility] [place] [address] [place] [address] Ailyn Lynne PA-C [address] [place] [address] [email or web address] documented as of this encounter Visit Diagnoses Not on filedocumented in this encounter Additional Health Concerns Assessment Noted Time PHQ-2 Depression Total Score: 0 09/05/20 2:41 PM EST documented as of this encounter Care Teams Well Site Drilling Engineer Relationship Specialty Start Date End Date Ailyn Lynne PA-C [address] [place] [address] [email or web address] PCP - General Physician Operator Maintainer 09/27/24 documented as of this encounter Additional Source Comments The information contained in this document represents components of the legal health record. It is not the complete legal health record.[facility]
--- OUTSIDE RECORDS SUMMARY | 2025-09-14 20:07 | XMS_ITS | Encounter Summary ---
Author Organization [facility] Address [address] [facility] [address] [place] [address] Phone Care Team Providers Care Engagement Executive Name Role Phone Ailyn Lynne PA-C Primary Care Provider Encounter Details Date Type Department Care Team (Late st Contact Info) Description 11/01/2024 Procedure Pass [facility], Ct Scan - [address] [address] Social History Tobacco Use Types Packs/Day Years [...] high school, GED, job training, learning the Jordanian language, technical skills, or developing parenting skills)? [...] EST Office Visit [facility] [address] [place] [address] Ailyn Lynne PA-C 40 [place] [address] [email or web address] documented as of this encounter Visit Diagnoses Not on filedocumented in this encounter Additional Health Concerns Assessment Noted Time PHQ-2 Depression Total Score: 0 09/05/20 2:41 PM EST documented as of this encounter Care Teams Engagement Executive Relationship Specialty Start Date End Date Ailyn Lynne PA-C [address] [place] [address] [email or web address] PCP - General Physician Drilling Machine Runner 09/27/24 documented as of this encounter Additional Source Comments The information contained in this document represents components of the legal health record. It is not the complete legal health record.[facility]
--- OUTSIDE RECORDS SUMMARY | 2025-09-14 20:07 | XMS_ITS | Encounter Summary ---
Author Organization [facility] Address [address] [facility] [address] [place] [address] Phone Care Team Providers Care Silk Top Hat Body Maker Name Role Phone Ailyn Lynne PA-C Primary Care Provider Encounter Details Date Type Department Care Team (Late st Contact Info) Description 09/13/2025 Orders Only [facility] Internal Medicine [address] [place] [address] Provider, MD Paul [address] [place], [place] [id number] Social History Tobacco Use Types Packs/Day Years [...] high school, GED, job training, learning the Egyptian language, technical skills, or developing parenting skills)? [...] EST Office Visit [facility] [place] [facility] [address] [place] [address] Ailyn Lynne PA-C 40 [place] [address] [email or web address] documented as of this encounter Procedures Procedure Name Priority Date/Time Associated Diagnosis Comments OUTSIDE IMAGING Routine 09/13/2025 10:37 AM EST documented in this encounter Results * Outside Imaging Report Only (09/13/2025 10:37 AM EST) us Historical Provider MD DENSON XR CHEST Final Res ult documented in this encounter Visit Diagnoses Not on filedocumented in this encounter Additional Health Concerns Assessment Noted Time PHQ-2 Depression Total Score: 0 09/05/20 2:41 PM EST documented as of this encounter Care Teams Silk Top Hat Body Maker Relationship Specialty Start Date End Date Ailyn Lynne PA-C 40 [place] [address] [email or web address] PCP - General Physician Soft Sugar Cutter 09/27/24 documented as of this encounter Additional Source Comments The information contained in this document represents components of the legal health record. It is not the complete legal health record.[facility]
--- OUTSIDE RECORDS SUMMARY | 2025-09-14 20:07 | XMS_ITS | Clinical Summary ---
Author Organization [facility] Address [address] [facility] [address] [place] [address] Phone Care Team Providers Care Pathology Laboratory Aide Name Role Phone Ailyn Lynne PA-C Primary Care Provider [phone]- [phone] Allergies Active Allergy Reactions Criticality Noted Date [...] for anxiety (prior to MRI). 2 tablet 11/01/19 25 Active Additional Information Patient taking differently:0.5 mg Oral Daily as needed, anxiety, prior to MRI,Only for MRI'S, Reported on 09/01/2025 aspirin 81 MG EC tablet Take 81 mg by mouth daily. Active atorvastatin (LIPITOR) 20 MG tablet TAKE 1 TABLET BY MOUTH DAILY 90 tablet 3 03/20/20 25 Active cholecalciferol (VITAMIN D3) 400 unit tablet Take 400 Units by mouth daily. Active lisinopril (PRINIVIL,ZESTR IL) 5 MG tabletIndicatio ns:Essential hypertension Take 2 tablets (10 mg total) by mouth every morning. 60 tablet 2 06/09/20 25 Active lisinopril (PRINIVIL,ZESTR IL) 5 MG tabletIndicatio ns:Essential hypertension TAKE 1 TABLET BY MOUTH EVERY DAY IN THE AFTERNOON. 90 tablet 3 09/04/20 25 Active lisinopril (PRINIVIL,ZESTR IL) 5 MG tabletIndicatio ns:Essential hypertension Take 1 tablet (5 mg total) by mouth Every Afternoon. 30 tablet 2 06/09/20 25 025 Discontinued Active Problems Problem Noted Date Diagnosed Date [...] to assess new MS lesions. She saw [facility] neurology on 10/15/2024 recommended CTA head [...] valve stenosis. She was previously referred to [facility] cardiology however she has not heard from them. [place] cardiology referral placed. Routine general medical exam ination at a health care facility 09/05/2024 Assessment & Plan (06/06/2025 2:13 PM EDT): We will attempt to get the records for her mammogram that she had done at [facility]. Up-to-date with Pap smear. Advised her [...] melanoma. 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 Referral placed for dermatology. Neuropathy 09/05/2024 Assessment & Plan (09/05/2024 4:40 PM EST): She has neuropathy from her feet up to her mid thighs due to multiple sclerosis bilaterally. She also has decreased strength of her legs bilaterally. Podiatry referral placed for feet check/care. Multiple sclerosis 09/05/2024 Assessment & Plan (09/01/2025 10:34 AM EST): Patient with a history of multiple sclerosis, following with [facility] neurology and currently on dimethyl fumarate for treatment. She is limited due to vision loss, neuropathy, and weakness from this diagnosis. Has an upcoming appointment with neurology in September. Attending physician statement form for the [facility] [employer] services group was completed during this office visit and given to the CO for faxing. Patient has an upcoming appointment on 10/06/2025 for a physical exam. Assessment & Plan (06/06/2025 2:12 PM EDT): Following with [facility] neurology, has an upcoming appointment in September with likely MRIs. 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 She has a MRI brain and spine coming up on 11/13/2024 to assess for new MS lesions. She did see [facility] neurology on 10/15/2024 which recommended a CTA head and neck for possible right amaurosis fugax. CTA head and neck ordered. She does note that she gets extremely anxious and claustrophobic during MRIs, requesting refill of her lorazepam. MassPAT reviewed. Lorazepam ordered for prior to MRI. She also notes that she has been unhappy with [facility] neurology. She is requesting to have a [facility] neurologist to follow her MS as she [...] assessment. Patient does note upcoming appointment with [facility] neurology but is unsure of the date. At last visit [facility] neurology referral was placed and currently waiting on scheduling for second opinion. Patient wants to keep all providers through [facility] for continuity of care. On exam she [...] gabapentin for symptom relief. She does see [facility] neurology, Hollie Garay MD. She was seen on 04/14/2024 and does have an upcoming appointment on 10/14/2024. She is interested in a neurology referral through [facility] for continuity of care, she is planning to keep her [facility] appointment until she receives a appointment with [facility]. She did have an MRI of her brain, cervical spine, thoracic spine in September 2023. MRI brain did show new lesions. She gets annual MRIs through neurology. Recommendation from [facility] eye physicians was to have a focus on the eyes for her next MRI. 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 She does follow [facility] eye physicians and was last seen [...] are attempting to obtain mammogram records from [facility]. Discussed the importance of evaluating, patient [...] it to her, she will get it [id number]. Discussed taking her blood pressure when she [...] Encounters Date Type Department Care Team Description 09/13/2025 Orders Only [facility] Internal Medicine [address] [place] [address] Paul Fountain MD 09/03/2025 Refill [facility] [address] [facility] [place] [address] Ailyn Lynne PA-C Medication Refill 09/01/2025 10:20 AM EST Telemedicine - audio only [facility] [address] [facility] [place] [address] Ailyn Lynne PA-C Multiple sclerosis (Primary Dx) 08/29/2025 Telephone [facility] [address] [place] [address] Ailyn Lynne PA-C 08/17/2025 Orders Only [facility] [address] [facility] [place] [address] Paul Fountain MD 08/14/2025 Telephone [facility] [address] [place] [address] Ailyn Lynne PA-C Referral request 08/04/2025 Orders Only [facility] [address] [facility] [place] [address] Paul Fountain MD 08/02/2025 Orders Only [facility] Internal [facility] [address] [place] [place] [address] Paul Fountain MD 08/02/2025 Telephone [facility] [address] [facility] [place] [address] Ailyn Lynne PA-C Biopsy results 08/02/2025 Telephone [facility] [address] [facility] [place], [place] [address] Ailyn Lynne PA-C Results (Biopsy) 07/27/2025 Orders Only [facility] [address] [facility] [place] [address] ProviderPaul MD 07/21/2025 Orders Only [facility] [address] [place], [place] [phone] Ailny Lynne PA-C Mass of left breast, unspecified quadrant (Primary Dx) 07/21/2025 Orders Only [facility] [address] [place] [address] Paul Fountain MD 07/19/2025 Orders Only [facility] [address] [facility] [place] [address] Paul Fountain MD 07/19/2025 Telephone [facility] Internal [facility] [address] [facility] [place] [address] Ailyn Lynne PA-C Request For Order(s) 07/11/2025 Telephone [facility] Internal [facility] [address] [facility] [place], [place] [phone] Ailyn Lynne PA-C Results; Request For Order(s); Breast Cancer Screening 07/10/2025 Orders Only [facility] [address] [facility] [place] [address] Provider, MD Paul from Last 3 Months Immunizations Immunization Administration [...] Tobacco: Every Day Cigarettes 0.5 55.9 Started: 1969 Passive Smoke Exposure: Never Smokeless [...] high school, GED, job training, learning the Persian language, technical skills, or developing parenting skills)? [...] cm (5' 4.02 ) 06/06/2025 1:11 PM E DT Body Mass Index 27.62 06/06/2025 1:11 PM EDT Plan of Treatment Upcoming Encounters Date Type Department Care Team (Late st Contact Info) Description 10/06/2025 2:40 PM EST [facility] [address] [place] [address] Ailyn Lynne PA-C [address] [place] [address] Health Maintenance Due Date Last Done Comments COLOGUARD 2005 FIT TEST 2005 FOBT 2005 SIGMOIDOSCOPY 2005 VIRTUAL COLONOSCOPY 2005 ZOSTER VACCINES (1 of 2) 2010 PNEUMOCOCCAL VACCINES (50+ years) (2 of 2 - PCV) 04/18/2012 04/18/2011 Adult Td,Tdap Booster 05/13/2022 05/13/2012, 007 INFLUENZA VACCINE (#1) 2025 08/24/2015 COVID-19 VACCINE ( season) 2025 02/10/2021, 01/20/2021 OSTEOPOROSIS SCREENING INITIAL (ONE-TIME) 2025 DEPRESSION SCREENING 09/05/2025 09/05/2024 LUNG CANCER SCREENING (LDCT Only) 09/25/2025 09/25/2024 CREATININE LEVEL 10/04/2025 10/04/2024, , 04/14/2024 POTASSIUM LEVEL 10/04/2025 10/04/2024, 04/14/2024 BLOOD PRESSURE 12/07/2025 06/06/2025 COLONOSCOPY 07/09/2026 07/09/2016 COLORECTAL CANCER SCREENING 07/09/2026 SMOKING Hx and SMOKELESS TOBACCO SCREENING 09/01/2026 09/01/2025 MAMMOGRAM 08/17/2027 08/17/2025, 10/0 05/2025, 07/26/2025, Additional history exists SCREENING FOR DIABETES 10/04/2027 10/04/2024 LIPID PANEL 11/02/2029 11/02/2024, 09/18, 07/04/2015 RSV VACCINE (1 - 1-dose 75+ series) [...] OUTSIDE IMAGING Routine 09/13/2025 10:37 AM EST HM MAMMOGRAPHY Routine 08/17/2025 12:07 PM EDT OUTSIDE PATHOLOGY Routine 08/02/2025 3:2 2 PM EDT HM MAMMOGRAPHY Routine 07/26/2025 2:20 PM EDT HM MAMMOGRAPHY Routine 07/26/2025 1:25 PM EDT BI US BREAST (LEFT) Routine 07/21/2025 3 [...] HM MAMMOGRAPHY Routine 07/06/2025 4:13 PM EDT LIPID PANEL Routine 11/02/2024 2:20 PM EST Pure hypercholesterolemia HEPATITIS C ANTIBODY, QUALITATIVE Routine 10/04/2024 2:11 PM EST Need for hepatitis C screening test COMPREHENSIVE METABOLIC PANEL (CMP) Routine 10/04/2024 2:11 PM EST Routine general medical examination at a health care facility CT CHEST LUNG CANCER SCREENING INITIAL Routine 09/25/2024 10:59 AM EST Cigarette smoker OUTSIDE HIV Routine 05/30/2022 from Last 3 Months or Most Recently Relevant to Health Maintenance Results * Outside Imaging Report Only (09/13/2025 10:37 AM EST) us Historical Provider MD DENSON XR CHEST Final Res ult * HM MAMMOGRAPHY FOR RESULT ENTRY ONLY (08/17/2025 12:07 PM EDT) [facility] Provider HEALTH MAINTENANCE Final Result * Outside Pathology (08/02/2025 3:22 PM EDT) Result [facility] Provider PATHOLOGY ORDERABLES Ally l Result * HM MAMMOGRAPHY FOR RESULT ENTRY ONLY (07/26/2025 2:20 PM EDT) Result [facility] Provider HEALTH MAINTENANCE Final Result * HM MAMMOGRAPHY FOR RESULT ENTRY ONLY (07/26/2025 1:25 PM EDT) Result [facility] Essie LOONEY HEALTH MAINTENANCE Final Result * HM MAMMOGRAPHY FOR RESULT ENTRY ONLY (07/19/2025 3:34 PM EDT) Result [facility] Essie LOONEY HEALTH MAINTENANCE Final Result * Outside Imaging Report Only (07/19/2025 3:33 PM EDT) Result [facility] Provider IMG XR CHEST Final Res ult * Outside US Breast Report Only (07/19/2025 3:32 PM EDT) Result [facility] Provider IMG US BREAST Final Res ult * HM MAMMOGRAPHY FOR RESULT ENTRY ONLY (07/06/2025 4:13 PM EDT) Result [facility] Essie LOONEY HEALTH MAINTENANCE Final Result * (ABNORMAL) Lipid panel (11/02/2024 2:20 PM EST) HDL 52 mg/dL Comment: Interpretation <40 mg/dL: Low HDL cholesterol (major risk factor for CHD) Greater than or equal to 60 mg/dL: High HDL cholesterol ( negative risk factor for CHD) HDL - cholesterol is affected by a number of factors, e.g. smoking, excerise, hormones, sex and age. CHOLESTEROL 168 0 - 240 mg/dL TRIGLYCERIDES 159 30 - 160 mg/dL LDL 84 50 - 129 mg/dL Comment: LDL levels in terms of risk for coronary heart disease: <100 mg/dL: Optimal 100-129 mg/dL: Near or above optimal 130-159 mg/dL: Borderline high 160-189 mg/dL: High >190 mg/dL: Very High CARDIAC RISK RATIO 3.2(L) 3.3 - 4.4 C [facility] Blood 11/02/2024 2:20 PM EST 11/02/2024 2:27 PM EST us Ailyn Lynne PA-C LAB BLOOD BKR ORDERABLES Fin al Result [address] [address] * Comprehensive metabolic panel (10/04/2024 2:11 PM EST) SODIUM 139 133 - 146 mmol/L POTASSIUM 3.9 3.3 - 5.1 mmol/L CHLORIDE 101 96 - 108 mmol/L CO2 24 21 - 35 mmol/L BUN 14 6 - 19 mg/dL CREATININE 0.70 0.5 - 1.5 mg/dL GLUCOSE 86 70 - 99 mg/dL ALBUMIN 4.6 3.9 - 4.8 g/dL TOTAL PROTEIN 7.5 6.5 - 8.0 g/dL CALCIUM 10.2 8.4 - 10.3 mg/dL ALKALINE PHOSPHATASE 95 39 - 117 U/L TOTAL BILIRUBIN 0.4 0.0 - 1.2 mg/dL AST 17 0 - 37 U/L ALT 7 0 - 40 U/L GLOBULIN 2.9 1 - 4.8 g/dL EGFR 97 >59 mL/min/1.7 3m2 Comment:Estimated glomerular filtration rate calculated using the CKD-EPI refit equation. ANION GAP 18 10 - 20 mmol/L Blood 10/04/2024 2:11 PM EST 10/04/2024 2:17 PM EST [facility] Lynne PA-C LAB BLOOD BKR ORDERABLES Fin al Result Performing Organization Address City/[facility]/ZIP Co de Phone Number [address] [address] * Hepatitis C antibody, qualitative (10/04/2024 2:11 PM EST) HCV NON-REACTIV E NON-REACTI VE Blood 10/04/2024 2:11 PM EST 10/04/2024 2:17 PM EST [facility] PA-C LAB BLOOD BKR ORDERABLES Fin al Result Performing Organization Address [facility] Co de Phone Number [address] [address] * CT CHEST LUNG CANCER SCREENING INITIAL [...] clinician's provided indication for this examination in [facility]: Lung Cancer Screening - CURRENT smoker (20+ [...] clinician's provided indication for this examination in [facility]:Lung Cancer Screening - CURRENT smoker (20+ pk-yrs, [...] if patientmeets eligibility criteria. Ailyn Lynne PA-C IM CT CHEST Final Result * OUTSIDE HIV TEST (05/30/2022) HIV - External Neg Historical Provider LAB BLOOD ORDERABLES Ally l Result from Last 3 Months or Most Recently Relevant to Health Maintenance Insurance [facility] MEDIC[facility] REPLACEMENT MEDICARE PART A & B [facility] MEDICARE REPLACEMENT MEDICARE PART A & [place] [address] [place] [address] [facility] MEDICARE REPLACEMENT MEDICARE PART A & [place] [address] [place] [address] [facility] MEDICARE REPLACEMENT MEDICARE PART A & B [facility] MEDIC[facility] REPLACEMENT MEDICARE PART A & B [facility] MEDICARE REPLACEMENT MEDICARE PART A & B Care Teams Pathology Laboratory Aide Relationship Specialty Start Date End Date Ailyn Lynne PA-C [address] [place] [address] PCP - General Physician Stylist Apprentice 09/27/24 Additional Source Comments The information contained in this document represents components of the legal health record. It is not the complete legal health record.[facility]
--- OUTSIDE RECORDS SUMMARY | 2025-09-14 20:07 | XMS_ITS | Encounter Summary ---
Author Organization [facility] Address [address] [facility] [address] [place] [address] Phone Care Team Providers Care Wireline Field Operator Name Role Phone Ailyn Lynne PA-C Primary Care Provider [phone] Encounter Details Date Type Department Care Team (Late st Contact Info) Description 12/06/2024 Procedure Pass [facility], Ct Scan - [address] [address] Social History Tobacco Use Types Packs/Day Years [...] high school, GED, job training, learning the Barbadian language, technical skills, or developing parenting skills)? [...] EST Office Visit [facility] [address] [place] [address] Ailyn Lynne PA-C 40 [place] [address] [email or web address] documented as of this encounter Visit Diagnoses Not on filedocumented in this encounter Additional Health Concerns Assessment Noted Time PHQ-2 Depression Total Score: 0 09/05/20 2:41 PM EST documented as of this encounter Care Teams Wireline Field Operator Relationship Specialty Start Date End Date Ailyn Lynne PA-C [address] [place] [address] [email or web address] PCP - General Physician Medication Reconciliation Technician 09/27/24 documented as of this encounter Additional Source Comments The information contained in this document represents components of the legal health record. It is not the complete legal health record.[facility]
--- OUTSIDE RECORDS SUMMARY | 2025-09-14 20:07 | XMS_ITS | Encounter Summary ---
Author Organization [facility] Address [address] [facility] [address] [place] [address] Phone Care Team Providers Care Anodizing Line Operator Name Role Phone Pcp, Unknown Primary Care Provider Ailyn Mike PA-C Primary Care Provider [phone] Encounter Details Date Type Department Care Team (Late st Contact Info) Description 09/05/2024 Procedure Pass [facility], Ct Scan - [address] [address] Social History Tobacco Use Types Packs/Day Years [...] high school, GED, job training, learning the Swiss language, technical skills, or developing parenting skills)? [...] EST Office Visit [facility] [address] [place] [address] Ailyn Lynne PA-C 40 [place] [address] [email or web address] documented as of this encounter Visit Diagnoses Not on filedocumented in this encounter Additional Health Concerns Assessment Noted Time PHQ-2 Depression Total Score: 0 09/05/20 2:41 PM EST documented as of this encounter Care Teams Anodizing Line Operator Relationship Specialty Start Date End Date Pcp, Unknown PCP - General 07/09/20 09/26/24 Ailyn Lynne PA-C 40 [place] [address] [email or web address] PCP - General Physician Associate Financial Analyst 09/27/24 documented as of this encounter Additional Source Comments The information contained in this document represents components of the legal health record. It is not the complete legal health record.[facility]
--- OUTSIDE RECORDS SUMMARY | 2025-09-14 20:07 | XMS_ITS | Encounter Summary ---
Author Organization [facility] Address [address] [facility] [address] [place] [address] Phone Care Team Providers Care Centrifugal Screen Tender Name Role Phone Ailny Lynne PA-C Primary Care Provider Encounter Details Date Type Department Care Team (Late st Contact Info) Description 10/04/2024 Procedure Pass [facility], [address] [address] Social History Tobacco Use Types Packs/Day Years [...] high school, GED, job training, learning the Finnish language, technical skills, or developing parenting skills)? [...] EST Office Visit [facility] 40 [place] [address] Ailyn Lynne PA-C 40 [place] [address] [email or web address] documented as of this encounter Visit Diagnoses Not on filedocumented in this encounter Additional Health Concerns Assessment Noted Time PHQ-2 Depression Total Score: 0 09/05/20 2:41 PM EST documented as of this encounter Care Teams Centrifugal Screen Tender Relationship Specialty Start Date End Date Ailyn Lynne PA-C [address] [place] [phone] [email or web address] PCP - General Physician Well Cleaner 09/27/24 documented as of this encounter Additional Source Comments The information contained in this document represents components of the legal health record. It is not the complete legal health record.[facility]
--- OUTSIDE RECORDS SUMMARY | 2025-09-14 20:07 | XMS_ITS | Encounter Summary ---
Author Organization [facility] Address [address] [place] [address] [place] [address] Phone Care Team Providers Care Coal Tower Operator Name Role Phone Ailyn Lynne PA-C Primary Care Provider [phone] Encounter Details Date Type Department Care Team (Late st Contact Info) Description 02/03/2025 Telephone [facility] Internal Medicine [address] [place], [place] [phone] Ailyn Lynne PA-C [address] [place] [address] [email or web address] Social History Tobacco Use Types Packs/Day Years [...] high school, GED, job training, learning the [place] language, technical skills, or developing parenting skills)? [...] 10/06/2025 2:40 PM EST Office Visit [facility] Internal Medicine [address] [place] [address] Ailyn Lynne PA-C [address] [place] [address] [email or web address] documented as of this encounter Visit Diagnoses Not on filedocumented in this encounter Additional Health Concerns Assessment Noted Time PHQ-2 Depression Total Score: 0 09/05/20 24 2:41 PM EST documented as of this encounter Care Teams Coal Tower Operator Relationship Specialty Start Date End Date Ailyn Lynne PA-C [address] [place] [address] [email or web address] PCP - General Physician Women'S Ministry Director 09/27/24 documented as of this encounter Additional Source Comments The information contained in this document represents components of the legal health record. It is not the complete legal health record.[facility]
[2025-09-14 21:25] LABS: Troponin-I High Sensitivity < 2.7 ng/L (<3.5-17.0)
[2025-09-14 21:52] VITALS: BP 122/59; PULSE 85; RESP 17; TEMP 36.5; O2SAT 97
[2025-09-14 22:10] VITALS: BP 122/59; PULSE 85; RESP 17; TEMP 36.5; O2SAT 97
== END 2025-09-14 22:10 | disposition home or self-care (01) ==
PROVIDERS: Physician Assistant Medical; Emergency Provider Emergency Medicine
DX: R55 Syncope and collapse (principal); R42 Dizziness and giddiness; R11.0 Nausea; I10 Essential (primary) hypertension; E78.00 Pure hypercholesterolemia, unspecified; Z03.818 Encounter for observation for suspected exposure to other biological agents ruled out; F17.200 Nicotine dependence, unspecified, uncomplicated; Z71.6 Tobacco abuse counseling; Z79.899 Other long term (current) drug therapy
CPT/HCPCS: 36415; 71275; 80053; 81003; 83690; 83735; 83880; 84484; 85025; 85610; 87637; 93005; 96361; 96374; 99285; J2405; Q9967

== ENCOUNTER → 2025-09-14 18:04 | Outpatient (BNV) | payer MEDICARE, SELFPAY | PROVIDERS: Emergency Provider Emergency Medicine; Visit Provider Internal Medicine Cardiovascular Disease | DX: R42 Dizziness and giddiness (principal) | CPT/HCPCS: 93010 ==

== ENCOUNTER → 2025-09-14 18:17 | Outpatient (BNV) | payer MEDICARE, SELFPAY | PROVIDERS: Emergency Provider Emergency Medicine; Visit Provider Radiology Diagnostic Radiology | DX: Z03.89 Encounter for observation for other suspected diseases and conditions ruled out (principal) | CPT/HCPCS: 71275 ==

== ENCOUNTER 2025-09-25 09:36 | Outpatient (AMB) | payer MEDICARE, SELFPAY ==
--- NOTE | 2025-09-25 09:37 | MHC.OFFVIS ---
Vital Signs 09/25/25 09:45 Height 5 ft 5 in Weight 162 lb 8 oz BMI 27.0 BP 180/77 H Blood Pressure Location Lt brachial Position Sitting Pulse 81 Intake Visit Reasons: S/P Rt. breast lumpectomy w/localizer Intake Note: Patient is seen in office for post op assessment post right breast lumpectomy. Pt c/o: denies any concerns surgery:09/13/25 Supervisor Special Education Required: No Accompanied by: Family/Other Allergies corticotropin (From [facility]HAR H.P.) Allergy (Severe, Verified 09/25/25 09:46) SWELLING levofloxacin (From LEVAQUIN) Allergy (Severe, Verified 09/25/25 09:46) ANGIOEDEMA teriflunomide (From AUBAGIO) Allergy (Severe, Verified 09/25/25 09:46) SOB/HTN albumin human (From REBIF (WITH ALBUMIN)) Allergy (Intermediate, Verified 09/25/25 09:46) ARM INFECTION interferon beta-1a (From REBIF (WITH ALBUMIN)) Allergy (Intermediate, Verified 09/25/25 09:46) ARM INFECTION sulfamethoxazole (From BACTRIM) Allergy (Mild, Verified 09/25/25 09:46) RASH trimethoprim (From BACTRIM) Allergy (Mild, Verified 09/25/25 09:46) RASH fingolimod (From GILENYA) Allergy (Unknown, Verified 09/25/25 09:46) UNKNOWN REACTION glatiramer (copolymer 1) (Copaxone) Allergy (Unknown, Verified 09/25/25 09:46) damage skin 1st Choice Lancets Super Thin Allergy (Unknown, Uncoded 09/25/25 09:46) Unknown adhesives Allergy (Unknown, Uncoded 09/25/25 09:46) rash HPI Comments Details: 65-year-old female patient with a strong family history of breast cancer diagnosed with a small radial scar on a recent stereotactic guided core biopsy performed on 07/26/2025. She subsequently underwent a right breast lumpectomy on 09/13/2025. Pathology revealed breast tissue with usual ductal hyperplasia, adenosis, small radial scar formation, fibrocystic change, small intraductal papilloma formation and biopsy site changes; no atypia or malignancy was identified. She tolerated the procedure well and denies any ongoing breast symptoms. [facility] Medical History Atherosclerotic cardiovascular disease Essential hypertension Hordeolum externum left lower eyelid Tobacco use disorder Multiple sclerosis Hypercholesterolemia Conjunctivitis Blepharitis of eyelid of right eye Surgical History History of lumpectomy of right breast (09/13/25) History of breast biopsy History of ear surgery History of tonsillectomy Family History Mother No problems noted. Father No problems noted. Sister Breast cancer, Onset Age: 30 Maternal Aunt Breast cancer Social History Housing: House Alcohol intake: never Patient Tobacco Use Status: Current everyday Tobacco user Tobacco use type: Cigarette Cigarette Packs Per Day: 1 Cigarettes Per Day: 20 e-Cigarette/Vaping Use: Never Used Second Hand Smoke Exposure: Yes service: No Current occupational status: disabled Cognitive needs: Yes (cane) Hearing needs: No Vision needs: Yes (Glasses) Review of Systems Const All systems reviewed & are unremarkable except as noted in HPI and below Reports body aches, Denies chills, Denies night sweats and Reports weakness ENT Reports Normal hearing present Card Denies chest pain, Denies rapid heart rate and Denies irregular heart rhythm Resp Denies chest congestion, Denies cough and Denies hemoptysis GI Denies abdominal pain, Denies constipation and Denies diarrhea Denies nipple discharge Skin/Breast Denies breast swelling, Denies breast skin changes, Reports breast pain, Reports breast mass, Denies change in breast shape and Denies nipple discharge Neuro Reports Normal hearing present and Reports weakness Kodi/Lymph Denies lymphadenopathy Physical Exam Const General: no acute distress Nutritional Appearance: well nourished Orientation/consciousness: patient oriented x3 Limitations: ambulation with cane Chest Other: Well-healed incision in the right breast upper outer quadrant circumareolar. No redness, hematoma or seroma appreciated. Chest/axillae images:  1. Incision right breast upper outer quadrant Resp Effort & Inspection: normal respiratory effort, no audible wheezes, no cough and no respiratory distress Skin Other: Warm, dry, no rash Neuro General: patient oriented x3 Cranial nerves: Yes Normal hearing present Extrem General: Yes no pedal edema Assessment & Plan Assessment & Plan (1) Radial scar of right breast: Code(s): N64.89 - Other specified disorders of breast Category: Medical Plan 65-year-old female patient status post right breast lumpectomy for radial scar. Pathology confirmed radial scar with no evidence of malignancy or atypia. The patient tolerated the procedure well and her wounds are healing nicely. She should follow up as needed and continue routine breast screening. Coding Level of Care Code Global (67713) Diagnoses Radial scar of right breast N64.89
[2025-09-25 09:45] VITALS: BP 180/77; PULSE 81; BMI 27.0
== END 2025-09-25 09:57 | disposition home or self-care (01) ==
LOC: HO.HGS 09:37
PROVIDERS: Visit Provider Surgery
DX: N64.89 Other specified disorders of breast (principal)
CPT/HCPCS: 99024

== ENCOUNTER → 2025-09-25 09:36 | Outpatient (BNVA) | payer MEDICARE, SELFPAY | PROVIDERS: Visit Provider Surgery | DX: Z98.890 Other specified postprocedural states (principal); N64.89 Other specified disorders of breast | CPT/HCPCS: 99212 ==